=== PATIENT | female | born 1975 | race Caucasian/White ===

== ENCOUNTER → 2018-12-13 15:35 | Outpatient (CLI) | payer OTHER, SELFPAY ==
[2018-12-09 15:16] VITALS: BMI 26.9
[2018-12-13 16:13] LABS: Absolute Lymphocyte Count 1.92 X10^3/ul (0.83-4.51); Absolute Neutrophil Count 3.1 X10^3/uL (2.0-7.7); Basophil# 0.03 X10^3/uL; Basophil% 0.5 % (0-1); Eosinophil# 0.11 X10^3/uL; Eosinophils% 1.9 % (0-5); Hematocrit 40.6 % (37-47); Hemoglobin 13.4 g/dl (12.0-15.0); Lymphocyte # 1.92 X10^3/ul (4.0); Lymphocyte % 32.8 % (19-41); Mean Corpuscular Hgb 29.3 pg (27.0-32.0); Mean Corpuscular Volume 88.6 fL (81-99); Mean Platelet Vol. 9.2 fl (6.2-12.0); Monocyte# 0.69 X10^3/uL; Monocyte% 11.8 % (0-10); Neutrophil # 3.09 X10^3/uL (2.7-7.7); Neutrophil % 52.8 % (47-70); Platelet Count 293 K/mm3 (150-450); RBC Distribution Width CV 12.2 % (11.6-14.6); Red Blood Count 4.58 M/mm3 (4.2-5.4); White Blood Count 5.9 K/mm3 (4.4-11.0)
[2018-12-13 16:15] LABS: POSITIVE COUNT NO; POSITIVE DIFFERENTIAL NO; POSITIVE MORPHOLOGY NO
[2018-12-13 16:43] LABS: Follicle Stimulating Hormone 6.2 mIU/mL; Prolactin 8.5 ng/mL
== END ==
PROVIDERS: Referring Provider Obstetrics & Gynecology; Visit Provider Obstetrics & Gynecology
DX: N92.6 Irregular menstruation, unspecified (principal)
CPT/HCPCS: 36415; 82670; 83001; 84146; 85025

== ENCOUNTER → 2019-05-05 16:54 | Outpatient (CLI) | payer OTHER, SELFPAY ==
[2019-05-05 12:00] VITALS: BMI 26.9
[2019-05-08 08:10] LABS: HPV APTIMA, High Risk Negative (Negative)
== END ==
PROVIDERS: Referring Provider Obstetrics & Gynecology; Visit Provider Obstetrics & Gynecology
DX: Z12.4 Encounter for screening for malignant neoplasm of cervix (principal)
CPT/HCPCS: 87624; 88175; G0145

== ENCOUNTER 2019-05-06 05:27 | Day surgery (SDC) | payer OTHER, SELFPAY ==
[2019-05-05 12:00] VITALS: BMI 26.9
[2019-05-06] VITALS (7 sets, daily range): BP systolic 87–107; BP diastolic 55–78; PULSE 63–71; RESP 16–18; TEMP 36.3–37.1; O2SAT 97–100; BMI 26.6
--- NOTE | 2019-05-06 | POC_PTH ---
PATIENT: MICHAEL CHENG LOC: [facility] – [place] U#:[id number] AGE/SX: 44/F ROOM: RE05/06/[address]: Dr. Sandi Tovar MD : [id number] BED: DIS: 05/06/2019 SPEC #: [id number] RECD: 05/06/19 11:52 STATUS: KEVIN RENatalie #: [id number] NAN: 05/06/19 00:[address]: Sandi Tovar DEPT: SURGICAL PATHOLOGY RECD BY: Quinton Leblanc ENTERED: 05/06/19 11:52 SP TYPE: PROD CONC OTHR DR: No Primary Care Phys Tissues: Product of conception, NOS Procedures: Surgery Specimen Level IV HEADER OPERATION: Dilation and curettage, suction PRE-OP DIAGNOSIS: Missed TISSUE SUBMITTED: Products of conception MICROSCOPIC DIAGNOSIS Endometrium, curettage: Chorionic villi, decidualized stroma and trophoblastic cells consistent with products of conception. AM:mili 05/07/19 MICROSCOPIC DESCRIPTION Slides are reviewed. GROSS DESCRIPTION Received fresh is one container labeled with the patient's name and designated products of conception. The specimen consists of multiple irregular fragments of light to dark harrison soft tissue that in aggregate measure 6 x 5 x 0.7 cm. Dimension Mill Worker portions are submitted for cytogenetic studies. Dimension Mill Worker portions are submitted in two cassettes for permanent sections. / AM:mili 05/06/19 TC:5 CPT: 29689 ADDENDUM ADDENDUM ADDENDUM ADDENDUM ADDENDUM ADDENDUM ADDENDUM ADDENDUM ADDENDUM ADDENDUM ADDENDUM ADDENDUM ADDENDUM 05/19/2019 10:02 ADDENDUM 05/19/2019 10:02 ADDENDUM 05/19/2019 10:02 ADDENDUM 05/19/2019 10:02 ADDENDUM 05/19/2019 10:02 [facility] MICROARRAY CHROMOSOME ANALYSIS WITH PARENTAL SUPPORT RESULT: Abnormal male MICROARRAY RESULT: arr(13)x3 CLINICAL INTERPRETATION: Abnormal result. Trisomy 13 detected. Trisomy 13 is associated with a clinical diagnosis of Patau syndrome and is found in 1 in 10,000 live births. It presents with syndromic congenital abnormalities and severe intellectual disability. Trisomy 13 is more likely to be lethal during the period and is commonly observed in miscarriages. Genetic counseling is recommended to discuss the significance of this result. Referral to a local genetic counselor may be considered. Please see complete above mentioned report in EMR
[2019-05-06] MEDS: Doxycycline 100 MG CAPSULE PO (06:14)
[2019-05-06 06:25] LABS: Hematocrit 41.8 % (37-47); Hemoglobin 14.3 g/dL (12.0-15.0); Mean Corp Hgb Conc 34.2 g/dL (32-36); Mean Corpuscular Hgb 30.3 pg (27.0-32.0); Mean Corpuscular Volume 88.6 fL (81-99); Mean Platelet Vol. 9.3 fl (6.2-12.0); Platelet Count 279 K/mm3 (150-450); RBC Distribution Width CV 12.5 % (11.6-14.6); RBC Distribution Width SD 40.1 fl (35.1-43.9); Red Blood Count 4.72 M/mm3 (4.2-5.4)
--- NOTE | 2019-05-06 06:51 | HP.PCM_ITS ---
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: No Is patient in pain?: No Allergies adhesive Allergy (Verified 05/05/19 14:27) Rash latex Allergy (Verified 05/05/19 14:27) Rash Last Menstral Period: 03/01/19 Zika: Zika virus screening: Negative : No PFSH PFSH Medical History Anemia (Acute) Anxiety with depression (Acute) Basal cell carcinoma of skin (Acute) Surgical History (Updated 12/09/18 @ 15:17 by Brynn Luna) History of oral surgery (Acute) History of tonsillectomy (Acute) Family History Mother Hyperlipidemia Father Diabetes Hyperlipidemia Hypertension Social History (Updated 05/05/19 @ 15:03 by Sandi Tovar MD) Smoking Status: Never smoker alcohol intake: never substance use type: does not use caffeine: No what type of physical activity do you participate in: walking seatbelt use: always do you feel safe at home: Yes additional social history: Michael- Kathryn 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 Date Name GA/Weeks Outcome Route Bth Weight Infant Gen Labor Lgth Anesthesia Del Locatn Provider FOB Unknown 2016 July live - full term Female [facility] Pauly HPI NOB LMP 03/01, pt req for date: Details: BRYNN CHENG is a 44 year old who presents for New OB visit. she denies any vb cramping. bedside ultrasound today shows 12 mm crl with no FHT seen. crl measuring 7w4d and GS 7w2d. has had positive test for almost 5 weeks. OB Visit Menstrual History Last Menstral Period: 03/01/19 Medical History Medical History: Positive: Diabetes (h/o GDM) ACOG First Trimester First Trimester: Discussed Assessment & Plan Problems 1. Missed O02.1 Plan discussed options plan suction d and c. discussed surgical risks including risks of anesthesia, infection, bleeding, injury to bowel, bladder or blood vessels, and patient wishes to proceed with surgery. Orders Orders: Hepatitis B Surface Antibody Today Z34.90 Hepatitis B Surface Antigen Today Z34.90 Antibody Screen Today Z34.90 Type & Screen Today Z34.90 HIV - [facility] Today Z34.90 Rubella IgG Today Z34.90 CBC W/Diff, Automated Today Z34.90 Culture, Urine Today Z34.90 CT/NG [facility] BY PCR Today Z34.90 Rapid Plasmin Reagin (RPR) Today Z34.90 Coding Level of Care Code OB Routine Diagnoses Missed O02.1 UPDATE- I have seen the patient and performed any clinically relevant updates to the history and physical exam. Sandi Tovar MD
--- NOTE | 2019-05-06 06:53 | DCINST_ITS ---
Discharge Diet: No Restrictions Discharge Activity: Return to Normal Activity, May Shower, May Take a Tub Bath Allergies/Adverse Reactions: Allergies adhesive Allergy (Verified 05/06/19 05:51) Rash latex Allergy (Verified 05/06/19 05:51) Rash Medications to take at Discharge Vits [Prenatabs FA] 1 tablet PO DAILY 02/25/17 Primary Care Physician: Care Physician,No Primary [Primary Care Provider] - Test Results: Test results from this visit will be discussed in further detail at your follow- up appointment, if applicable. Please Follow Up With: Sandi Tovar MD - [phone]
--- NOTE | 2019-05-06 06:53 | PCM.OPRPT ---
Problem List (1) Missed Status: Acute Report of Operation Date of Procedure: 05/06/19 Pre-Operative Diagnosis: Missed Post-Operative Diagnosis: same Surgery/Procedure Performed:: Suction D&C Description of Surgical Findings:: 8 week missed ab Type of Anesthesia:: Local MAC Special Medications: none Specimen's removed: products of conception Drains: none Estimated Blood Loss (mL): 50 Fluids Replaced: Crystalloid Description of Procedure: Patient was taken to the operating room and placed under MAC local anesthesia. She was prepped and draped in the normal sterile fashion the dorsal lithotomy position. Bladder was drained of clear urine and anterior lip of the cervix was grasped and the uterus sounded to 8 to 9 cm. Cervix was progressively dilated to allow passage of a 8 and then a 9 suction curette. Progressive passes were made removing the retained products of conception without complication. Sharp curettage confirmed complete removal of the retained products. All instruments were removed from the vagina and excellent hemostasis was noted and the patient was taken to recovery in stable condition. Grafts/Implants Used: none - Complications none Multi Select Codes - Urinary/Genital Urinary/Genital CPT Codes: 34029 Care of miscarriage
[2019-05-12 09:48] LABS: Pathology Specimen OB SEE PATHOLOGY REPORT
== END 2019-05-06 08:28 | disposition home or self-care (01) ==
LOC: SDC 05:28 → AC 05:28
PROVIDERS: Referring Provider Obstetrics & Gynecology; Visit Provider Obstetrics & Gynecology
PROC: (CPT 59820; principal; 2019-05-06 06:30)
DX: O02.1 Missed abortion (principal); D64.9 Anemia, unspecified; F32.9 Major depressive disorder, single episode, unspecified; F41.9 Anxiety disorder, unspecified; Z85.828 Personal history of other malignant neoplasm of skin; E11.9 Type 2 diabetes mellitus without complications
CPT/HCPCS: 01965; 59820; 85027; 86850; 86900; 88305; J7120; J2405

== ENCOUNTER → 2019-08-01 15:30 | Outpatient (CLI) | payer OTHER, SELFPAY ==
[2019-05-23 15:48] VITALS: BMI 26.6
[2019-08-01 17:10] LABS: hCG Titer Quant., Serum 199 mIU/mL (1-3)
== END ==
PROVIDERS: Referring Provider Obstetrics & Gynecology; Visit Provider Obstetrics & Gynecology
DX: N91.2 Amenorrhea, unspecified (principal)
CPT/HCPCS: 36415; 84702

== ENCOUNTER → 2019-08-03 17:36 | Outpatient (CLI) | payer OTHER, SELFPAY ==
[2019-05-23 15:48] VITALS: BMI 26.6
[2019-08-03 18:40] LABS: hCG Titer Quant., Serum 579 mIU/mL (1-3)
== END ==
PROVIDERS: Visit Provider Obstetrics & Gynecology
DX: N91.2 Amenorrhea, unspecified (principal)
CPT/HCPCS: 36415; 84702

== ENCOUNTER → 2019-09-01 15:55 | Outpatient (CLI) | payer OTHER, SELFPAY ==
[2019-09-01 11:18] VITALS: BMI 26.6
[2019-09-01 19:52] LABS: Chlamydia Trachomatis by PCR Negative (Negative); Neisserai gonorrhoeae by PCR Negative (Negative); Probe Check PASS; Sample Adequacy Control PASS; Specimen Processing Control PASS
== END ==
PROVIDERS: Referring Provider Obstetrics & Gynecology; Visit Provider Obstetrics & Gynecology
DX: Z34.90 Encounter for supervision of normal pregnancy, unspecified, unspecified trimester (principal)
CPT/HCPCS: 87086; 87491; 87591

== ENCOUNTER → 2019-09-16 17:00 | Outpatient (CLI) | payer OTHER, SELFPAY ==
[2019-09-16 16:09] VITALS: BMI 26.6
[2019-09-16 17:53] LABS: Glucose 158 mg/dL (74-106)
== END ==
PROVIDERS: Referring Provider Obstetrics & Gynecology; Visit Provider Obstetrics & Gynecology
DX: Z34.81 Encounter for supervision of other normal pregnancy, first trimester (principal); Z86.32 Personal history of gestational diabetes
CPT/HCPCS: 36415; 82947

== ENCOUNTER → 2019-10-14 16:45 | Outpatient (CLI) | payer OTHER, SELFPAY ==
[2019-10-14 16:07] VITALS: BMI 26.6
[2019-10-14 17:25] LABS: Absolute Lymphocyte Count 1.82 X10^3/uL (0.83-4.51); Absolute Neutrophil Count 6.8 X10^3/uL (2.0-7.7); Basophil# 0.03 X10^3/uL; Basophil% 0.3 % (0-1); Eosinophil# 0.06 X10^3/uL; Eosinophils% 0.6 % (0-5); Hemoglobin 11.7 g/dL (12.0-15.0); Lymphocyte # 1.82 X10^3/ul (4.0); Lymphocyte % 19.4 % (19-41); Mean Corp Hgb Conc 33.4 g/dL (32-36); Mean Corpuscular Hgb 29.3 pg (27.0-32.0); Mean Corpuscular Volume 87.7 fL (81-99); Mean Platelet Vol. 9.6 fl (6.2-12.0); Monocyte# 0.61 X10^3/uL; Monocyte% 6.5 % (0-10); NRBC Flagged by Analyzer 0 % (0-5); Neutrophil % 72.8 % (47-70); Platelet Count 275 K/mm3 (150-450); RBC Distribution Width CV 12.9 % (11.6-14.6); RBC Distribution Width SD 41.3 fl (35.1-43.9); Red Blood Count 3.99 M/mm3 (4.2-5.4); White Blood Count 9.4 K/mm3 (4.4-11.0)
[2019-10-14 18:51] LABS: HIV - WCH Non-Reactive (Nonreactive); Rubella IgG 34.1 IU/mL
[2019-10-16 02:56] LABS: Rapid Plasmin Reagin (RPR) NONREACTIVE (NONREACTIVE)
== END ==
PROVIDERS: Referring Provider Obstetrics & Gynecology; Visit Provider Obstetrics & Gynecology
DX: Z34.90 Encounter for supervision of normal pregnancy, unspecified, unspecified trimester (principal)
CPT/HCPCS: 36415; 85025; 86592; 86703; 86762; 86850

== ENCOUNTER → 2020-02-05 16:22 | Outpatient (CLI) | payer OTHER, SELFPAY ==
[2020-02-05 15:44] VITALS: BMI 26.6
[2020-02-06 07:06] LABS: Hepatitis B Surface Antigen Non-Reactive (Nonreactive)
== END ==
PROVIDERS: Referring Provider Obstetrics & Gynecology; Visit Provider Obstetrics & Gynecology
DX: Z34.90 Encounter for supervision of normal pregnancy, unspecified, unspecified trimester (principal)
CPT/HCPCS: 36415; 87340

== ENCOUNTER → 2020-03-12 10:32 | Outpatient (CLI) | payer OTHER, SELFPAY ==
[2020-03-12 09:41] VITALS: BMI 26.6
--- NOTE | 2020-03-12 10:33 | US_ITS ---
STUDY: OBSTETRICAL ULTRASOUND - BIOPHYSICAL PROFILE REASON FOR EXAM: Female, 45 years old NON-REACTIVE NST-AMA LMP: July 01, 2019. PRIOR ULTRASOUND: None. TECHNIQUE: Transabdominal TECHNICAL QUALITY: Adequate. FINDINGS: There is a single intrauterine fetus. The fetus is in a cephalic presentation. There is demonstrated cardiac activity with a heart rate of 132 bpm. There is a normal amniotic fluid volume. The largest amniotic fluid pocket measures 5.9 cm. The amniotic fluid index (ROSANNA) is 15.5 cm. The placenta is fundal and posterior There are Grade 2 placental changes. Age by LMP: 36 weeks, 3 days. KATHY by LMP: April 01, 2020. Gender: Female BIOPHYSICAL PROFILE: Breathing Movements (FBM): 2 Gross Body Movements (GBM): 2 Tone (FT): 2 Amniotic Fluid Volume (AFV): 2 TOTAL SCORE: 8 / 8 US/Biophysical Profile IMPRESSION: Normal biophysical profile of 8/8. Electronically Signed: Arya Bhatti, at 12:26 EDT , Service support ,
--- OUTSIDE RECORDS SUMMARY | 2020-07-18 12:30 | XMS RPT_ITS | CCD ---
:1975 External Reference #:[id number] Author Organization [facility] Care Team Providers Name Role Phone Unavailable Unavailable Unavailable Results Result Name Value Range Unit Interpretation Flag Date Location progress note on 19-01-28 [employer] Met with patient. Normal 01-27-20 [facility] Here for f/u on renal dilation of fetus, fibroid [facility] ([id number]) Interface Message Text Medical, surgical and family hx reviewed AMA- pt reports low risk cfDNA States had genetic testing in past as ere was a question of infertility- she and her were carriers for different disorder (husb and was a form of dwarfism, she is uncertain of hers but knows it was a comm on carrier screen result). 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 Consent to share information with FTC team, OB and pediatric regulo signed. Pt plans to deliver at [place] with Dr Tovar. Monument Stonecutter is Dr Catalan ([facility] pediatrics). female fetus- name is not yet decided Method of feeding: breast Ultrasound findings today: See report in procedures for deta ils. Reinforced continued OB care with Dr Tovar Pt has not had baseline mamm ogram. Reinforced monthly breast exams regardless of [employer] The total patient time of e visit was 30 minutes, of which greater than 50% of Normal 01-27-2020 [facility] the time was spent counseling and coordinating care. Hospital ([id number]) Interface Message Text progress note on 18-01-22 [employer] Dating for Normal 01-21-2020 [facility] Interface upcoming consult Hospital ([id number]) Message Text progress on 2019-11 PROGRESS HNO ID: [id number] Normal 11-04-2019 [facility] Author: Navya driver ([id number]) Service: ? Author Type: Nurse Practitioner Type: Progress Notes Filed: 11/04/2019 3:11 PM Note Text: Subjective HPI HPI Michael Hull is a 44 year old female who presents today for CC of sore throat. This started 4-5 days ago. She is also havin g chest congestion, cough, bodyaches an headache. She denies any fev er. She is 18 weeks . She denies any bleeding or LOF. BP 102/64 Pulse 72 Temp 36.6 ?C (97.8 ?F) (Tympanic) R prince 16 Wt 74.8 kg (165 lb) SpO2 99% BMI 28.32 kg/m? Social History Tobacco Use - Smoking status: Never Smoker - Smokeless tobacco: Never Used Substance Use Topics - Alcohol use: No - Drug use: No PAST MEDICAL HISTORY Diagnosis Date - Anemia - depression and anxiety - Gestational diabetes mellitus, class A1 01/03/2017 - [facility] - PAST MEDICAL HISTORY OF BASAL CELL CARCINOMA I have confirmed and edited as necessary, the [facility] Review of Systems Constitutional: Negative for chills and fever. HENT: Positive for congestion, sinus pain and sore throat. N egative for ear pain. Respiratory: Positive for cough. Negative for sputum product ion, shortness of breath and wheezing. Musculoskeletal: Positive for myalgias. Negative for joint p ain. Neurological: Positive for headaches. Objective Physical Exam Constitutional: She is well-developed, well-nourished, and i n no distress. HENT: Head: Normocephalic and atraumatic. Right Ear: Tympanic membrane, external ear and ear canal nor mal. Left Ear: Tympanic membrane and ear canal normal. Mouth/Throat: Uvula is midline, oropharynx is clear and mois t and mucous membranes are normal. Cardiovascular: Normal rate, regular rhythm and normal heart sounds. Pulmonary/Chest: Effort normal and breath sounds normal. Lymphadenopathy: Head (right side): No submental, no submandibular and no ton sillar adenopathy present. Head (left side): No submental, no submandibular and no tons illar adenopathy present. She has no cervical adenopathy. Neurological: She is alert. Skin: Skin is warm and dry. Psychiatric: Affect normal. Nursing note and vitals reviewed. ASSESSMENT/PLAN: 1. URI with cough and congestion - ICD9: 465.9, ICD10: J06.9 (primary diagnosis) - Discussed viral etiology and rationale for treatment. Rest, increase water intake Motrin or Tylenol as needed for fever or pain. Salt water gargles, chloraseptic spray or lozenges as needed for sore throat. Warm beverages, honey. Nasal saline spray as needed Cool mist humidifier at night A cold normally lasts 7-10 days. If your symptoms are lastin g longer, develop fever, or worsening by that time instead of improvin g then return to clinic or follow up with PCP for re-evaluation. 2. Sore throat - ICD9: 462, ICD10: J02.9 - suspect viral - Rapid Strep negative in the office today - overnight throat culture pending - Discussed supportive care treatment with fluids, rest and analgesia. - The patient may also use warm salt water gargles, throat l ozenges and/or OTC throat spray as needed. - The patient should follow up in one week if symptoms persi st or worsen - Call back if drooling, increased temperature, symptoms of dehydration and/or still sick in one week - GROUP A STREPTOCOCCUS BY PCR - RAPID STREP TEST B/O * Seek medical care immediately, call 911, go to ER if you h ave chest pain, difficulty breathing, shortness of breath, inability t o swallow. Diagnosis and treatment plan were discussed and questions we re answered to the patient's satisfaction. Pt acknowledged understanding of concepts and follow up plan. Specific signs and symptoms that would indicate the need for higher level of care were discussed in detail warranting prompt ER evalua tion. Navya Rizzo, TRAUMA DIRECTOR.WHEEL INSTALLER group a strep by pcr on 2019-11-04 GAS Specimen Source Throat Swab Normal 11-04-19 [facility] ([id number]) Comment: Performed By: #### GASPCR ## ## [facility] [address] [place], [place] [address] Group A Strep PCR Negative for Group A Normal 0 11-04-2019 [facility] Streptococcus by PCR. [place] ([id number]) Comment: Result Comment: This test wa s developed and its performance characteristics determined by [facility]'s [facility] [place] ([facility]). It has not been cleared or a pproved by the FDA. [facility] is regulated under CLIA as qualified to perform high complexity testing. This test is used for clinical purposes. It should not be regarded as inv estigational or for research . Performed By: #### GASPCR ## ## [facility] [address] [place], [place] [address] cnov on 2019-11-04 CNOV Office Visit (UCWSTR) Normal 11-04-19 [place] MICHAEL HULL ([id number]) 1975 [facility] Time Provider Department ([id number]) 11/04/19 2:15 PM NAVYA RIZZO [facility] During your visit today, we recorded the following informati on about you: Temperature Pulse Respiration Blood pressure 97.8 degrees 72/minute 16/minute 102/64 Weight 74.8 kg Navya Rizzo APRN.WHEEL INSTALLER 11/04/2019 3:11 PM Signed Subjective HPI HPI Michaelmalou Hull is a 44 year old female who present s today for CC of sore throat. This started 4-5 days ago. She is also mcpherson ving chest congestion, cough, bodyaches an headache. She denies any fev er. She is 18 weeks . She denies any bleeding or LOF. BP 102/64 Pulse 72 Temp 36.6 ?C (97.8 ?F) (Tympanic) R prince 16 Wt 74.8 kg (165 lb) SpO2 99% BMI 28.32 kg/m? Social History Tobacco Use - Smoking status: Never Smoker - Smokeless tobacco: Never Used Substance Use Topics - Alcohol use: No - Drug use: No PAST MEDICAL HISTORY Diagnosis Date - Anemia - depression and anxiety - Gestational diabetes mellitus, class A1 01/03/2017 - [facility] - PAST MEDICAL HISTORY OF BASAL CELL CARCINOMA I have confirmed and edited as necessary, the [facility] Review of Systems Constitutional: Negative for chills and fever. HENT: Positive for congestion, sinus pain and sore throat. Negative for ear pain. Respiratory: Positive for cough. Negative for sp utum production, shortness of breath and wheezing. Musculoskeletal: Positive for myalgias. Negative for joint p ain. Neurological: Positive for headaches. Objective Physical Exam Constitutional: She is well-developed, well-nourished, and i n no distress. HENT: Head: Normocephalic and atraumatic. Right Ear: Tympanic membrane, external ear and ear canal nor mal. Left Ear: Tympanic membrane and ear canal normal. Mouth/Throat: Uvula is midline, oropharynx is clear and mois t and mucous membranes are normal. Cardiovascular: Normal rate, regular rhythm and normal heart sounds. Pulmonary/Chest: Effort normal and breath sounds normal. Lymphadenopathy: Head (right side): No submental, no submandibular and no ton sillar adenopathy present. Head (left side): No submental, no submandibular and no tons illar adenopathy present. She has no cervical adenopathy. Neurological: She is alert. Skin: Skin is warm and dry. Psychiatric: Affect normal. Nursing note and vitals reviewed. ASSESSMENT/PLAN: 1. URI with cough and conges tion - ICD9: 465.9, ICD10: J06.9 (primary diagnosis) - Discussed viral etiology and rationale for treatment. Rest, increase water intake Motrin or Tylenol as needed for fever or pain. Salt water gargles, chloraseptic spray or lozeng es as needed for sore throat. Warm beverages, honey. Nasal saline spray as needed Cool mist humidifier at night A cold normally lasts 7-10 days. If your symptom s are lasting longer, develop fever, or worsening by that time instead of improving then return to clinic or follow up with PCP for re-evaluation. 2. Sore throat - ICD9: 462, ICD10: J02.9 - suspect viral - Rapid Strep negative in the office today - overnight throat culture pending - Discussed supportive care treatment with fluids, rest and analgesia. - The patient may also use warm salt richard er gargles, throat lozenges and/or OTC throat spray as needed. - The patient should follow up in one week if symptoms persi st or worsen - Call back if drooling, increased tempe rature, symptoms of dehydration and/or still sick in one week - GROUP A STREPTOCOCCUS BY PCR - RAPID STREP TEST B/O * Seek medical care immediately, call 911, go to ER if you have chest pain, difficulty breathing, shortness of breath, inability to swal low. Diagnosis and treatment plan were discus sed and questions were answered to the patient's satisfaction. Pt a cknowledged understanding of concepts and follow up plan. Specific signs and symptoms that would indicate the ut ed for higher level of care were discussed in detail warranting prompt ER evaluatio n. Navya Rizzo APRN.ELTON Rizzo APRN.ELTON 11/04/2019 2:43 PM Signed ASSESSMENT/PLAN: 1. URI with cough and conges tion - ICD9: 465.9, ICD10: J06.9 (primary diagnosis) - Discussed viral etiology and rationale for treatment. Rest, increase water intake Motrin or Tylenol as needed for fever or pain. Salt water gargles, chloraseptic spray or lozeng es as needed for sore throat. Warm beverages, honey. Nasal saline spray as needed Cool mist humidifier at night A cold normally lasts 7-10 days. If your symptom s are lasting longer, develop fever, or worsening by that time instead of improving then return to clinic or follow up with PCP for re-evaluation. 2. Sore throat - ICD9: 462, ICD10: J02.9 - suspect viral - Rapid Strep negative in the office today - overnight throat culture pending - Discussed supportive care treatment with fluids, rest and analgesia. - The patient may also use warm salt richard er gargles, throat lozenges and/or OTC throat spray as needed. - The patient should follow up in one week if symptoms persi st or worsen - Call back if drooling, increased tempe rature, symptoms of dehydration and/or still sick in one week - GROUP A STREPTOCOCCUS BY PCR - RAPID STREP TEST B/O * Seek medical care immediately, call 911, go to ER if you have chest pain, difficulty breathing, shortness of breath, inability to swal low. Referring Provider: SELF [[id number]] Allergies As of Date: 11/04/2019 Noted Allergy Reaction ADHESIVE TAPE (ROSINS) 03/18/2008 2 - Rash BACITRACIN 03/18/2008 2 - Rash Date Reviewed: 11/04/2019 Reviewed by: Nancy Duenas Ma - Fully Assessed Reason for Visit: Chest Congestion [236] Cmt: cough, bodyaches, sore throat an d headache x 6 days-18 weeks Primary Visit Diagnosis:URI with cough and congestion [J06.9 ] Other Visit Diagnosis:Sore throat [J02.9] Order(s):GROUP A STREPTOCOCCUS BY PCR [SQGASPCR] Order #: [id number] RAPID STREP TEST B/O [[id number]] Order #: [id number] Prescriptions as of 11/04/2019 Sig: LANCETS 1 Each four times daily. Use * URINE GLUCOSE-KETONES TEST ST* 1 Strip four times daily. LANCETS Check glucose fasting in morn* VITAMIN,CALCIUM,MINE* Take 1 tablet by mouth. ETONOGESTREL 0.12 MG-ETHINYL * Use 1 Each vaginally as direc * Patient not taking: Reported on 11/04/2019 BLOOD-GLUCOSE METER 1 Each as directed. Patient not taking: Reported on 11/04/2019 BLOOD SUGAR DIAGNOSTIC STRIPS 1 Strip four times daily. Use* Patient not taking: Reported on 11/04/2019 BLOOD-GLUCOSE METER KIT 1 Each as needed. USE DIRE* Patient not taking: Reported on 11/04/2019 BLOOD SUGAR DIAGNOSTIC STRIPS Check glucose fasting in morn* Patient not taking: Reported on 11/04/2019 ALCOHOL SWABS Apply 1 application to affect* Patient not taking: Reported on 11/04/2019 BREAST PUMP As directed Patient not taking: Reported on 11/04/2019 ETONOGESTREL 0.12 MG-ETHINYL * Insert vaginally and leave in * Patient not taking: Reported on 11/04/2019 IBUPROFEN 200 MG TABLET Take 1-2 tablets by mouth yumiko* Patient not taking: Reported on 11/04/2019 Problem List As Of Date 11/04/2019 Noted Resolved Spotting in [O26.859] 07/20/2016 01/15/2017 More... History of depression [Z86.59] 07/20/2016 More... Advanced maternal age, 1st [O09.519] 07/20/2016 More... Abnormal O'Griffith glucose challenge test, ant*12/15/2016 0 01/15/2017 More... Gestational diabetes mellitus, class A1 [O24.41*01/03/2017 0 04/10/2017 History of gestational diabetes mellitus, not p*04/10/2017 Other instructions from your clinician: ASSESSMENT/PLAN: 1. URI with cough and congestion - ICD9: 465.9, ICD10: J06.9 (primary diagnosis) - Discussed viral etiology and rationale for treatment. Rest, increase water intake Motrin or Tylenol as needed for fever or pain. Salt water gargles, chloraseptic spray or lozenges as needed for sore throat. Warm beverages, honey. Nasal saline spray as needed Cool mist humidifier at night A cold normally lasts 7-10 days. If your symptoms are lastin g longer, develop fever, or worsening by that time instead of improvin g then return to clinic or follow up with PCP for re-evaluation. 2. Sore throat - ICD9: 462, ICD10: J02.9 - suspect viral - Rapid Strep negative in the office today - overnight throat culture pending - Discussed supportive care treatment with fluids, rest and analgesia. - The patient may also use warm salt water gargles, throat l ozenges and/or OTC throat spray as needed. - The patient should follow up in one week if symptoms persi st or worsen - Call back if drooling, increased temperature, symptoms of dehydration and/or still sick in one week - GROUP A STREPTOCOCCUS BY PCR - RAPID STREP TEST B/O * Seek medical care immediately, call 911, go to ER if you h ave chest pain, difficulty breathing, shortness of breath, inability t o swallow. Encounter Status:Closed by NAVYA RIZZO CNP on 11/04/19 Summary Purpose Family History No Family History Records FoundNo Family History Records Found Advance Directives No Advanced Directives Records FoundNo Advanced Directives Records Found Additional Source Comments FOR RECORDS PERTAINING TO PATIENTS WHO ARE OR HAVE BEEN ENROLLED IN A CHEMICAL DEPENDENCY/SUBSTANCE ABUSE PROGRAM, SOME INFORMATION MAY BE OMITTED. This clinical summary was aggregated from multiple sources. Caution should be exercised in using it in the provision of clinical care. This summary normalizes information from multiple sources, and as a consequence, information in this document may materially changethe coding, format and clinical context of patient data. In addition, data may be omittedin some cases. CLINICAL DECISIONS SHOULD BE BASED ON THE PRIMARY CLINICAL RECORDS. [facility] provides no warranty or guarantee of the accuracy or completeness of information in this document. UNRECOGNIZED CONTENT PROVIDED BELOW FOR UNRECOGNIZED SECTION INFORMATION SOURCE DATE CREATED AUTHOR AUTHOR'S ORGANIZATIO N 11/05/2019 [facility] DATE CREATED AUTHOR AUTHOR'S ORGANIZATIO N 03/23/2020 [facility]
== END ==
PROVIDERS: Referring Provider Obstetrics & Gynecology; Visit Provider Obstetrics & Gynecology
DX: O09.90 Supervision of high risk pregnancy, unspecified, unspecified trimester (principal); O28.8 Other abnormal findings on antenatal screening of mother; Z3A.00 Weeks of gestation of pregnancy not specified
CPT/HCPCS: 76818; 87081

== ENCOUNTER → 2020-03-25 16:26 | Outpatient (CLI) | payer OTHER, SELFPAY ==
[2020-03-25 15:26] VITALS: BMI 32.1
--- NOTE | 2020-03-25 16:27 | US_ITS ---
STUDY: OBSTETRICAL ULTRASOUND - BIOPHYSICAL PROFILE REASON FOR EXAM: Female, 45 years old WELL BEING LMP: PRIOR ULTRASOUND: None. TECHNIQUE: Transabdominal TECHNICAL QUALITY: Adequate. FINDINGS: There is a single intrauterine fetus. The fetus is in a cephalic presentation. There is demonstrated cardiac activity with a heart rate of 130 bpm. There is a normal amniotic fluid volume. The largest amniotic fluid pocket measures 4.4 cm. The amniotic fluid index (ROSANNA) is 13.1 cm. The placenta is fundal in location. There are Grade 2 placental changes. Age by LMP: 38 weeks, 2 days. KATHY by LMP: 04/06/2020. BIOPHYSICAL PROFILE: Breathing Movements (FBM): 2 Gross Body Movements (GBM): 2 Tone (FT): 2 Amniotic Fluid Volume (AFV): 2 TOTAL SCORE: 8 / 8 US/Biophysical Profile IMPRESSION: Normal biophysical profile of 05/08. Electronically Signed: Russ Clancy MD at 21:12 EDT Tel , Service support ,
== END ==
PROVIDERS: Referring Provider Obstetrics & Gynecology; Visit Provider Obstetrics & Gynecology
DX: O36.8390 Maternal care for abnormalities of the fetal heart rate or rhythm, unspecified trimester, not applicable or unspecified (principal); Z3A.00 Weeks of gestation of pregnancy not specified
CPT/HCPCS: 76818

== ENCOUNTER → 2020-04-06 11:56 | Outpatient (CLI) | payer OTHER, SELFPAY ==
[2020-04-05 08:26] VITALS: BMI 32.1
== END ==
PROVIDERS: Referring Provider Obstetrics & Gynecology; Visit Provider Obstetrics & Gynecology
DX: Z11.59 Encounter for screening for other viral diseases (principal)
CPT/HCPCS: 87635; G2023; U0003

== ENCOUNTER 2020-04-08 07:00 | Inpatient (IN) | payer OTHER, SELFPAY ==
[2020-04-05 08:26] VITALS: BMI 32.1
[2020-04-08] VITALS (16 sets, daily range): BP systolic 97–119; BP diastolic 54–79; PULSE 54–75; RESP 16–18; TEMP 36.7–37.4; O2SAT 97–98; BMI 31.5
[2020-04-08] MEDS: Lactated Ringers 1,000 ML 50 ML IV (07:35)
[2020-04-08] MEDS: Oxytocin 30 units/NS 500 ml 30 UNITS/500 ML IV.SOLN IV (08:05)
[2020-04-08 08:15] LABS: Absolute Lymphocyte Count 1.27 X10^3/uL (0.83-4.51); Absolute Neutrophil Count 7.1 X10^3/uL (2.0-7.7); Basophil# 0.01 X10^3/uL; Basophil% 0.1 % (0-1); Eosinophil# 0.05 X10^3/uL; Eosinophils% 0.5 % (0-5); Hematocrit 37.5 % (37-47); Hemoglobin 12.3 g/dL (12.0-15.0); Lymphocyte # 1.27 X10^3/ul (4.0); Lymphocyte % 13.7 % (19-41); Mean Corp Hgb Conc 32.8 g/dL (32-36); Mean Corpuscular Hgb 29.6 pg (27.0-32.0); Mean Corpuscular Volume 90.4 fL (81-99); Mean Platelet Vol. 10.2 fl (6.2-12.0); Monocyte# 0.76 X10^3/uL; Monocyte% 8.2 % (0-10); NRBC Flagged by Analyzer 0 % (0-5); Neutrophil # 7.12 X10^3/uL (2.7-7.7); Platelet Count 247 K/mm3 (150-450); RBC Distribution Width CV 13.1 % (11.6-14.6); RBC Distribution Width SD 42.8 fl (35.1-43.9); Red Blood Count 4.15 M/mm3 (4.2-5.4); White Blood Count 9.3 K/mm3 (4.4-11.0)
--- NOTE | 2020-04-08 09:38 | PCM.HPOB.BLA ---
- Problem List (1) Encounter for induction of labor Status: Acute (2) AMA (advanced maternal age) multigravida 35+ Status: Acute Qualifiers: Comment: scheduled IOL 40 weeks. genetic counseling. growth scans q4wks, wkly NST starting at 32 weeks. Growth US 03/18 showed adequate growth (3) Abnormal glucose affecting Status: Acute Comment: declined 3gtt Home testing- normal Fastin-83 2hrPP 87-90; 90-95; 93-105 (4) Fibroids Status: Acute Comment: posterior cervical fibroid (5) Status: Acute Qualifiers: Comment: carrier, nipt-low risk, and ntd screening reviewed. anatomy reviewed. (6) Pyelectasis of fetus on ultrasound Status: Acute Comment: from 7mm to 12mm now, see 03/22 US note for plan for peds after delivery. urology consult, fu (7) Supervision of high-risk Status: Acute Qualifiers: Comment: PRR KATHY 04/06/20 girl nicky BONNY July Michael (8) Anxiety Status: Chronic Comment: no meds, counseling encouraged History and Physical Date of Admission: 04/08/20 Intake Vital Signs 04/05/20 Height 5 ft 4 in 04/05/20 Weight: 184 lb 04/05/20 BMI 31.6 04/05/20 BP 124/72 H Intake Visit Reasons: 39 WK OB/NST Repatcher Required: No Is patient in pain?: No Allergies adhesive Allergy (Verified 04/05/20 08:20) Rash latex Allergy (Verified 04/05/20 08:20) Rash Medications Vits [Prenatabs FA] 1 tab PO DAILY 02/25/17 [History Confirmed 04/05/20] famotidine 20 mg tablet 20 mg PO DAILY #30 tab 10/14/19 [Rx Confirmed 04/05/20] Last Menstral Period: 07/01/19 Zika: Zika virus screening: Negative : No PFSH PFSH Medical History Anemia (Acute) Anxiety with depression (Acute) Basal cell carcinoma of skin (Acute) Surgical History H/O dilation and curettage (Acute) History of oral surgery (Acute) History of tonsillectomy (Acute) Family History Mother Hyperlipidemia Father Diabetes Hyperlipidemia Hypertension Social History (Updated 04/06/20 @ 05:[address] 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 Date Name GA/Weeks Outcome Route Bth Weight Gen Labor Lgth Anesthesia Del Locatn Provider FOB Unknown 2016 July live - full term Female [facility] [place] HPI 39 WK OB/NST: Details: 45-year-old G3, P1 at 40 weeks 3 days presents for induction labor secondary to AMA OB Visit KATHY Calculator Estimated Delivery Date Method Current WG Current Estimate 04/06/20 LMP (Certain) 40w 0d Expected Delivery Route/Plan Labor Preferences- labor support person: Michael pain management options preferred: [] cut cord/dad catch: [] : yes PP control planned: [] discussed possible routes of delivery and associated risks: [] special requests: [] Specific Issue/Plans flu vaccine: declines tdap vaccine: declines rhogam: na LARC form signed: yes movement and labor precautions reviewed. Problem list reviewed and updated with the most current plan of care details and appropriate orders placed. Relevant counseling for the gestational age provided. Continue routine care and follow up unless otherwise noted in visit notes/problem list details Initial Weight: Not Recorded Date EGA Weight BP Urine Prot Glucose FHR FuHt Pres Dilation Effaced St Visit Note 09/01/19 8w 6d 155 lb 4 oz 130/70 170 09/16/19 11w 0d 157 lb 120/68 160 no vb 10/14/19 15w 0d 164 lb 114/66 Negative Negative 150 SM- no vb cramping some nausea 11/11/19 19w 0d 164 lb 130/86 Negative Negative 158 MH-No VB, LOF. Nausea gone. MFM US last week-need report. states told by MFM fluid in kidney and repeat 4 weeks Will clarify and call pt 12/11/19 23w 2d 122/70 150 SM- reviewed anatomy us and fu, plan repeat us in 02/05/20 31w 2d 186 lb 124/74 Negative Negative 145 31 SM- no vb lof good fm no regular ctx 02/20/20 33w 3d Negative Negative 150 SM- no vb lof good fm n oregular 02/27/20 34w 3d 186 lb 112/70 Negative Negative 140 03/04/20 35w 2d 185 lb 118/78 Negative Negative 143 MH-No VB, LOF. Good FM. Reactive NST. Growth US with MFM scheduled 03/12/20 36w 3d 185 lb 4 oz 120/78 Negative Negative 140 36 SM- BPP done for NRNST 05/08 reassuring. discussed IOL by 40 weeks SM- BPP done for NRNST 05/08 reassuring. discussed IOL by 40 weeks. growth us sched for 03/18/20 37w 2d 187 lb 100/70 Negative Negative 140 Cephalic 1.5 SM- no vb lof good fm no regular ctx 03/25/20 38w 2d 187 lb 112/82 Negative Negative 140 SM- no vb lof good fm no regular ctx bpp due to variable decel 04/01/20 39w 2d 184 lb 8 oz 126/80 Negative Negative 140 1.5 SM- reactive nst no vb lof good fm no regular ctx discussed IOL 40 weeks due to AMA. fu sunday to assess cervix 04/05/20 39w 6d 184 lb 124/72 Negative Negative 140 3 60 -2 nl dhruv bedside 8 cm. NST in good movements irregular contractions, discussed induction of labor if no active labor after membrane sweep today. Plan induction for . ACOG First Trimester First Trimester: Desire for , Alcohol, Tobacco Cessation, Illicit/Recreational Drug/Substance Use, Intimate Partner Violence, Barriers to care, Unstable Housing, Communication Barriers, Environmental/Work Hazards, Anticipated Course of Care, Toxoplasmosis Precations, Use of Any medications, Sexual activity, Exercise, Dental Care, Sauna/Hot tub use, Seat Belt use, Childbirth classes/Hospital facilities, , Travel, Indications for US and Screening for Aneuploidy Second Trimester Second Trimester: Signs and Symptoms of Labor, Selecting a care provider, Reproductive Life Planning, Care Planning, Tobacco Cessation, Depression/Anxiety and Intimate Partner Violence Third Trimester Third Trimester: Pain Management Plans, Labor support person(s), Immediate Larc, Movement Monitoring and Infant Feeding Yes ; discussed Trial of Labor after Counseling or discussed Circumcision preference Diagnostics Diagnostics Details: HIV: Urine Culture: Sequential Screen: NIPT Screen: ROS Const Reports system reviewed and no additional complaints, except as docu Card Reports system reviewed and no additional complaints, except as docu Resp Reports system reviewed and no additional complaints, except as docu GI Reports system reviewed and no additional complaints, except as docu, Reports nausea Reports system reviewed and no additional complaints, except as docu Musc Reports system reviewed and no additional complaints, except as docu Exam Const General: cooperative, healthy appearing, comfortable, anxious HENMT Head: normal to inspection Nose: external nose normal Face and sinus: normal facial exam Neck Neck: normal visual inspection, full ROM, no lymphadenopathy Thyroid: thyroid normal Chest Chest palpation & inspection: normal inspection of the chest Resp Effort & Inspection: normal respiratory effort GI Inspection: normal to inspection Palpation: soft, other (gravid uterus) Other: infant vertex and appropriate size for gestational age Other: Cervical Exam: Extrem General: pedal edema Office Procedures OB NST Non-Stress Test Indications for Monitoring: Yes Advanced maternal age Heart Rate Baseline: 140 Heart Rate Variability: moderate Movement: Present Heart Rate Accelerations: Present Decelerations: Absent Contractions: Absent Impression: Yes Reactive Non-Stress Test Category 1 Results POC Urinalysis 2 Dip (Clinic) Office Urine Glucose Negative Last Edit by Rain Lopez on 04/05/20 08:23 Office Urine Protein Negative Last Edit by Rain Lopez on 04/05/20 08:23 Assessment & Plan Problems 1. Supervision of high risk in first trimester O09.91 2. 39 weeks gestation of Z3A.39 3. Abnormal glucose affecting O99.810 4. Pyelectasis of fetus on ultrasound O35.8XX0 5. Fibroids D21.9 6. Multigravida of advanced maternal age in third trimester O09.523 7. Anxiety F41.9 45-year-old G3, P1 at 40 weeks 3 days presents for induction labor secondary to AMA Patient presents IOL, plan management for , pitocin/AROM . Pain management: plans epidural GBS negative Management of any complications:fredis I have reviewed the [facility] and made any clinically relevant updates. Orders Orders: OB NST 04/05/20 O09.523, O35.8XX0, O99.810, Z3A.39 POC Urinalysis 2 Dip (Clinic) 04/05/20 O09.523, O35.8XX0, O99.810, Z3A.39 Coding Level of Care Code OB Routine Diagnoses Supervision of high risk in first trimester O09.91 ??Trimester: first trimester 39 weeks gestation of Z3A.39 ??Weeks of gestation: 39 weeks Abnormal glucose affecting O99.810 Pyelectasis of fetus on ultrasound O35.8XX0 Fibroids D21.9 Multigravida of advanced maternal age in third trimester O09.523 ??Trimester: third trimester Anxiety F41.9 Additional Codes Non-Stress Test (79067)
[2020-04-08] MEDS: Lactated Ringers 500 ML 999 ML IV (13:08)
[2020-04-08] MEDS: Oxytocin 30 units/NS 500 ml 30 UNITS/500 ML IV.SOLN 334 UNITS IV (14:45)
--- NOTE | 2020-04-08 14:51 | PCM.OPRPT ---
Problem List (1) Encounter for induction of labor Status: Acute (2) AMA (advanced maternal age) multigravida 35+ Status: Acute Qualifiers: Comment: scheduled IOL 40 weeks. genetic counseling. growth scans q4wks, wkly NST starting at 32 weeks. Growth US 03/18 showed adequate growth (3) Abnormal glucose affecting Status: Acute Comment: declined 3gtt Home testing- normal Fastin-83 2hrPP 87-90; 90-95; 93-105 (4) Fibroids Status: Acute Comment: posterior cervical fibroid (5) Status: Acute Qualifiers: Comment: carrier, nipt-low risk, and ntd screening reviewed. anatomy reviewed. (6) Pyelectasis of fetus on ultrasound Status: Acute Comment: from 7mm to 12mm now, see 03/22 US note for plan for peds after delivery. urology consult, fu (7) Supervision of high-risk Status: Acute Qualifiers: Comment: PRR KATHY 04/06/20 girl nicky [place] Michael (8) Anxiety Status: Chronic Comment: no meds, counseling encouraged Vaginal Delivery Maternal Presentation: Medically Indicated Induction 45 yo @ 40w3d presents IOL Method of Induction: Pitocin Amniotic Membrane Rupture Type: Spontaneous Amniotic Fluid Description: Clear Final KATHY: 04/05/20 Gestational age: 40 Weeks and 3 Days Date of Procedure: 04/08/20 Pre-Operative Diagnosis: iol ama Post-Operative Diagnosis: same Surgery/ Procedure Performed: Spontaneous Vaginal Delivery Type of Anesthesia: None Description of Procedure: Patient began pushing and delivered the head in the ALEXANDRA presentation. The head was delivered atraumatically and a loose nuchal cord ?2 was identified and easily reduced over the 's head. The anterior and posterior shoulders delivered without complication followed by the rest of the and the infant was placed on the maternal abdomen. Delayed cord clamping was employed for approximately 60 seconds. Cord was clamped and cut and gentle traction was applied to the cord and the placenta delivered spontaneously immediately following it was noted to be intact with three-vessel cord. The perineum and vagina were inspected and noted to have no laceration. EBL was 100 cc. Patient and infant tolerated delivery well. Presentation: GISSELLE Estimated Blood Loss: 100 A gender: Female Episiotomy Description: None Laceration: None Medications given after delivery: IV Pitocin Complications: None Multi Select Codes - Urinary/Genital Urinary/Genital CPT Codes: 82019 Vaginal Delivery [facility]
[2020-04-08] MEDS: Naproxen 250 MG Tablet 500 MG PO (15:47)
[2020-04-08] MEDS: 0.9% Saline Lock 10 ML Syringe IV (17:27)
[2020-04-08] MEDS: Senna/Docusate Sodium 1 Tablet PO (20:27)
[2020-04-08] MEDS: Acetaminophen 500 MG Tablet 1000 MG PO (20:27)
--- NOTE | 2020-04-08 21:35 | DCINST_ITS ---
Discharge Diet: No Restrictions Discharge Activity: Return to Normal Activity, May not drive while taking narcotic pain medications., May Shower May resume sexual activity in: 4-6 weeks Call your doctor if your incision/area has: Continuous Slow Oozing, Sudden Increased Bleeding, Increased Pain/ Swelling, Increased Redness, Foul Smelling Discharge Additional Instructions: If you experience any of the following, contact your healthcare provider. * Bleeding that soaks a pad every hour for 2 hours * Fever 100.4 or higher * Unrelieved incision or abdominal pain * Swelling, redness, discharge or bleeding from your incision or episiotomy site * Your incision begins to separate * Problems urinating (including inability to urinate or burning while urinating). * Visual changes * Severe headache * Flu-like symptoms * Pain or redness in one of both of your breasts * Pain, warmth, tenderness or swelling in your legs, especially the calf area * Frequent nausea and vomiting * Symptoms of depression or anxiety If you experience any of the following, call 911 or go to the nearest Emergency Room. * Chest pain * Problems breathing * Seizure activity * Partial or complete paralysis of a body part, slurred speech, weakness or drooping of the face, or a sudden inability to walk or hold your balance Allergies/Adverse Reactions: Allergies adhesive Allergy (Verified 04/05/20 08:20) Rash latex Allergy (Verified 04/05/20 08:20) Rash Medications to take at Discharge Vits [Prenatabs FA] 1 tab PO DAILY 02/25/17 famotidine 20 mg tablet 20 mg PO DAILY #30 tab 10/14/19 Please Follow Up With: Sandi Tovar MD - [phone] When: Call to make an appointment with your doctor in 6 weeks. If you had elevated Blood pressure or 4th degree laceration you will need to be seen in 2 weeks. Primary Care Physician: Care Physician,No Primary [Primary Care Provider] - Test Results: Test results from this visit will be discussed in further detail at your follow- up appointment, if applicable.
--- NOTE | 2020-04-08 21:35 | PCM.DCVAG ---
Discharge Diet: No Restrictions Discharge Activity: Return to Normal Activity, May not drive while taking narcotic pain medications., May Shower May resume sexual activity in: 4-6 weeks Call your doctor if your incision/area has: Continuous Slow Oozing, Sudden Increased Bleeding, Increased Pain/ Swelling, Increased Redness, Foul Smelling Discharge Additional Instructions: If you experience any of the following, contact your healthcare provider. Bleeding that soaks a pad every hour for 2 hours Fever 100.4 or higher Unrelieved incision or abdominal pain Swelling, redness, discharge or bleeding from your incision or episiotomy site Your incision begins to separate Problems urinating (including inability to urinate or burning while urinating). Visual changes Severe headache Flu-like symptoms Pain or redness in one of both of your breasts Pain, warmth, tenderness or swelling in your legs, especially the calf area Frequent nausea and vomiting Symptoms of depression or anxiety If you experience any of the following, call 911 or go to the nearest Emergency Room. Chest pain Problems breathing Seizure activity Partial or complete paralysis of a body part, slurred speech, weakness or drooping of the face, or a sudden inability to walk or hold your balance Allergies/Adverse Reactions: Allergies adhesive Allergy (Verified 04/05/20 08:20) Rash latex Allergy (Verified 04/05/20 08:20) Rash Medications to take at Discharge Vits [Prenatabs FA] 1 tab PO DAILY 02/25/17 famotidine 20 mg tablet 20 mg PO DAILY #30 tab 10/14/19 Please Follow Up With: Sandi Tovar MD - [phone] When: Call to make an appointment with your doctor in 6 weeks. If you had elevated Blood pressure or 4th degree laceration you will need to be seen in 2 weeks. Primary Care Physician: Care Physician,No Primary [Primary Care Provider] - Test Results: Test results from this visit will be discussed in further detail at your follow-up appointment, if applicable.
[2020-04-09] MEDS: Naproxen 250 MG Tablet 500 MG PO ×2 (00:37→08:15)
[2020-04-09 04:35] VITALS: BP 104/61; PULSE 59; RESP 16; TEMP 36.9
[2020-04-09] MEDS: Acetaminophen 500 MG Tablet 1000 MG PO ×2 (04:43→16:39)
[2020-04-09 08:07] VITALS: BP 100/60; PULSE 58; RESP 16; TEMP 36.6
--- NOTE | 2020-04-09 09:09 | PCM.PN.OB ---
Patient Problems: Active and Suspected Problems (Last Reviewed 04/05/20 @ 08:21 by Rain Lopez) Encounter for induction of labor (Acute) Subjective: doing well no complaints pain controlled no CP SOB N V ambulating well tolerating po lochia moderate, going well - Physical Exam Vitals/I&O's: Vital Signs Temp Pulse Resp BP Pulse Ox 97.8 F 58 L 16 100/60 97 04/09/20 08:07 04/09/20 08:07 04/09/20 08:07 04/09/20 08:07 04/08/20 09:05 Oxygen Delivery Method Room Air Weight: 183 lb 13.848 oz Body Mass Index (BMI) 31.5 Intake and Output for Last 24 Hours 04/07/20 04/08/20 04/09/20 23:59 23:59 23:59 Intake Total 1527.74 / 1527.74 Balance 1527.74 / 1527.74 General: Alert, Oriented x3 Laboratory Results 04/08/20 08:00: Blood Type A POSITIVE, Antibody Screen NEGATIVE Current Medications Acetaminophen (Tylenol) 1,000 mg PO Q8H PRN PRN PRN Reason: Pain Score 1-3/10 Last Admin: 04/09/20 04:43 Dose: 1,000 mg Documented by: Bisacodyl (Dulcolax) 10 mg RECTAL UD PRN PRN Reason: If no BM Dibucaine (Dibucaine) 1 applic TOPICAL TID PRN PRN; Protocol PRN Reason: Discomfort Famotidine (Pepcid) 20 mg PO DAILY OSTO Last Admin: 04/09/20 08:16 Dose: Not Given Documented by: Hydrocortisone (Hytone) 1 applic TOPICAL TID PRN PRN; Protocol PRN Reason: Discomfort Methylergonovine Maleate (Methergine) 0.2 mg IM X1 PRN PRN Reason: Excess bleeding/uterine atony Naproxen (Naprosyn) 500 mg PO Q8H PRN PRN PRN Reason: Pain Score 1-3/10 Last Admin: 04/09/20 08:15 Dose: 500 mg Documented by: Ondansetron HCl (Zofran) 4 mg IV Q4H PRN PRN PRN Reason: Nausea Oxycodone HCl (Oxyir) 5 - 10 mg PO Q4H PRN PRN PRN Reason: Pain Score 4-10/10 Multivit/Folic Acid/Iron (Prenatabs Fa) 1 tablet PO DAILY SOTO Last Admin: 04/09/20 08:16 Dose: Not Given Documented by: Senna/Docusate Sodium (Senokot-S, Michaela-Colace) 1 - 2 tablet PO DAILY PRN PRN PRN Reason: Constipation Last Admin: 04/08/20 20:27 Dose: 1 tablet Documented by: Simethicone (Mylicon) 80 mg PO PCHS PRN PRN Reason: Indigestion/Stomach pain Sodium Chloride () 5 - 15 ml IV UD PRN PRN Reason: SALINE FLUSH Last Admin: 04/08/20 17:27 Dose: 10 ml Documented by: Medical Necessity - Tobacco Use Smoking Status: Never smoker Assessment/Plan All Active Problems (Last Reviewed 04/05/20 @ 08:21 by Rain Lopez) Encounter for induction of labor (Acute) AMA (advanced maternal age) multigravida 35+ (Acute) Fibroids (Acute) Pyelectasis of fetus on ultrasound (Acute) Abnormal glucose affecting (Acute) (Acute) Supervision of high-risk (Acute) Irregular menses (Resolved) Missed (Resolved) s/p PPD # 1 1. routine post delivery care 2. breast feeding- support given 3. rh positive 4. rubella immune
[2020-04-09 13:10] VITALS: BP 109/68; PULSE 64; RESP 14; TEMP 36.6
[2020-04-09 17:30] VITALS: BP 123/82; PULSE 70; RESP 14; TEMP 36.9
== END 2020-04-09 19:10 | disposition home or self-care (01) | DRG 807 ==
PROVIDERS: Admitting Provider Obstetrics & Gynecology; Referring Provider Obstetrics & Gynecology; Visit Provider Obstetrics & Gynecology
DX: O42.92 Full-term premature rupture of membranes, unspecified as to length of time between rupture and onset of labor (principal); Z37.0 Single live birth; O35.8XX0 Maternal care for other (suspected) fetal abnormality and damage, not applicable or unspecified; O69.81X0 Labor and delivery complicated by cord around neck, without compression, not applicable or unspecified; O99.814 Abnormal glucose complicating childbirth; O34.43 Maternal care for other abnormalities of cervix, third trimester; D26.0 Other benign neoplasm of cervix uteri; O99.344 Other mental disorders complicating childbirth; F41.9 Anxiety disorder, unspecified; Z3A.40 40 weeks gestation of pregnancy
CPT/HCPCS: 59025; 59050; 85025; 86850; 86900; 86901; 99218; J7120; A4216; G0378

== ENCOUNTER → 2020-07-23 13:21 | Outpatient (CLI) | payer OTHER, SELFPAY ==
[2020-05-24 15:02] VITALS: BMI 31.5
--- NOTE | 2020-07-23 13:21 | BI_ITS ---
MAMMOGRAPHY - BILATERAL SCREENING REASON FOR EXAM: Female, 45 years old. Routine annual screening examination. PERTINENT HISTORY: Grandmother with breast cancer. TECHNIQUE: Digital bilateral breast porsha (3D mammographic acquisition) in the CC and MLO projections. 2-D mediolateral oblique (MLO) and craniocaudad (CC) views of both breasts were obtained. CAD: Full Field Digital Mammography with Computer Added Detection was performed. COMPARISON: None. Baseline examination. FINDINGS: Breast Composition: The breasts are heterogeneously dense, which may obscure small masses. There are no dominant masses or suspicious calcifications. No other significant abnormalities are identified. BI/SCREEN MAMM (CAD) W/PORSHA BILAT IMPRESSION: Negative screening mammogram. Yearly followup mammogram recommended. (A) ASSESSMENT CATEGORY: BIRADS Category 1: Negative. A letter regarding these results will be sent to the patient by the facility within 30 days. Approximately 10% of breast cancers are not detected by mammography. A normal mammogram should not delay biopsy of a clinically suspicious abnormality. [id number] Electronically Signed: Arya Bhatti, at 14:41 EDT , Service support ,
== END ==
PROVIDERS: Visit Provider Obstetrics & Gynecology
DX: Z12.31 Encounter for screening mammogram for malignant neoplasm of breast (principal)
CPT/HCPCS: 77063; 77067

== ENCOUNTER → 2021-09-27 15:43 | Outpatient (CLI) | payer OTHER, SELFPAY ==
--- NOTE | 2021-09-27 15:46 | BI_ITS ---
MAMMOGRAPHY - BILATERAL SCREENING 3-D TOMOSYNTHESIS REASON FOR EXAM: Female, 46 years old. screening mammogram PERTINENT HISTORY: No significant family history. TECHNIQUE: 2-D mammograms and 3-D Tomosynthesis of the breast (s) were performed. CAD was performed. COMPARISON: 07/23/2020 FINDINGS: The breast composition is heterogeneously dense that can obscure small breast masses. Scattered benign calcifications are seen. No dense spiculated masses or suspicious microcalcifications are identified. No architectural distortion is identified. There is no skin thickening or retraction. There has been no significant change since the prior study. BI/SCRN MAMM (CAD)W/PORSHA BILAT IMPRESSION: No mammographic signs of malignancy. Routine yearly mammograms recommended. ASSESSMENT CATEGORY: BIRADS Category 1: Negative. A letter regarding these results will be sent to the patient by the facility within 30 days. FOLLOW UP RECOMMENDATION: Yearly follow up mammogram recommended. (A) Approximately 10% of breast cancers are not detected by mammography. A normal mammogram should not delay biopsy of a clinically suspicious abnormality. Electronically Signed: Dean Elena MD at 16:36 EST Tel , Service support ,
== END ==
PROVIDERS: Visit Provider Obstetrics & Gynecology
DX: Z12.31 Encounter for screening mammogram for malignant neoplasm of breast (principal)
CPT/HCPCS: 77063; 77067

== ENCOUNTER 2025-06-07 19:45 | Emergency (ER) | payer OTHER, SELFPAY ==
[2025-06-07 19:46] VITALS: BP 142/104; PULSE 88; RESP 16; TEMP 36.6; O2SAT 100
--- NOTE | 2025-06-07 20:21 | EX.ED.DYSGE1 ---
HPI History of Present Illness Chief Complaint: Lower Extremity Injury [facility] Medical History Basal cell carcinoma of skin Anemia Anxiety with depression Home Medications ?Medication ?Instructions ?Recorded ?Last Taken ?Type vits,calcium no.78-iron 1 tab PO DAILY 02/25/17 02/25/17 08:00 History fumarate-folic acid 29 mg-1 mg 1 tablet segesterone acet 0.15 mg-ethinyl 1 vag ring vaginal Q4W #1 ea 07/21/20 Unknown Rx estradiol 0.013 mg/24 hr vaginal ring ([place]) Allergy/AdvReac Type Severity Reaction Status Date / Time adhesive Allergy Rash Verified 06/07/25 19:45 latex Allergy Rash Verified 06/07/25 19:45 Family History Mother Hyperlipidemia Father Diabetes Hyperlipidemia Hypertension Surgical History H/O dilation and curettage History of oral surgery History of tonsillectomy Social History (Updated 05/26/21 @ 15:48 by Deja Nassar) Smoking Status: Never smoker alcohol intake: never substance use type: does not use caffeine: No what type of physical activity do you participate in: walking seatbelt use: always do you feel safe at home: Yes additional social history: 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 REVIEW OF SYSTEMS: Pertinent positives: Right knee pain Pertinent negatives: Loss of sensation PHYSICAL EXAM: Nursing triage notes reviewed, Vital signs reviewed Constitutional: please see mdm Extremities: Swelling over right knee decreased range of motion secondary to pain, palpable effusion. No TTP over right ankle or right hip. Negative logroll in the right leg. Neuro: Intact sensation L1-S1 dermatomal distributions. Intact 5/5 strength in hip flexion (T12-L3). Knee extension (L2-L4). Ankle dorsiflexion (L4-L5). Ankle plantar flexion (S1). Great toe extension (L5). 2+ patellar and Achilles DTRs. Skin: Abrasion over right knee but no sign of open fracture MEDICAL DECISION MAKING: Chief Complaint: please see HPI MDM Narrative: The patient was initially hemodynamically stable, afebrile and nontoxic-appearing. Exam with palpable effusion, small abrasion over the right knee. No obvious ligamentous laxity or signs of open fracture I considered the following differential diagnosis: Knee fracture, dislocation, contusion I obtained an x-ray to further determine if the patient was suffering from a life-threatening etiology. Give Tylenol ibuprofen for initial pain control ALL IMAGES (IF OBTAINED) HAVE BEEN PERSONALLY REVIEWED AND INTERPRETED BY MYSELF. X-ray of the right knee was read and reviewed personally by myself showed no sign of fracture or dislocation.. Radiologist agrees my interpretation. Patient was provided after crutches. Second suffering from a posttraumatic knee effusion. This should resolve with time. Gave close outpatient PCP and orthopedic follow-up. The patient and/or family, caregivers express understanding. The patient and/or family, caregivers agrees with the plan. Shared decision making: I will have a discussion with the patient and or visitors regarding risk/benefits of further testing or admission. They will be made aware of of the risk/benefits inherent in this decision they will be given the opportunity to voice understanding. Total critical care time today provided was at least 0 minutes. This excludes separately billable procedures. Critical care time (if documented) is secondary to the patient having high probability of clinically significant/life threatening deterioration in the patient's condition which required my urgent intervention. Impression: 1. Acute knee pain 2. Knee effusion Dispo: DC This note was generated with [employer] dictation software. It may contain incorrect words, spelling, and punctuation that were not noted in review of the chart prior to signing. Radiography Diagnostic Testing: Clinical Impression(s) from Imaging Studies Knee X-Ray 06/07/25 20:30 IMPRESSION: Soft tissue swelling. - Findings discussed above in detail. Reading Location: [facility] Discharge Plan Triage Chief Complaint: Lower Extremity Injury ED Provider: Peng Rashid Dx/Rx/DC Orders Instructions: ED Fluid on the Knee Prescriptions: No Action vit,helga [id number] 1 TABLET tablet 1 tab PO DAILY [place] 0.15-0.013 mg/24 hour ring 1 vag ring vaginal Q4W Qty: 1 0RF Rx Instructions: use continuously x 1 year Primary Care Provider: Kunal Garcia Referrals: Kunal Garcia, DO [Primary Care Provider] - Byran Mcdonald MD [Med Staff - Active Staff] - Activity Restrictions/Additional Instructions: Thank you for trusting us with your care today! The x-ray of your right knee showed no sign of a broken bone or dislocated joint. The swelling that you are seeing is related to an effusion which is fluid that came into the body after trauma. This should resolve with time and range of motion exercises Please use knee immobilizer for comfort and stability. Please use crutches to aid in mobilization. Please perform passive range of motion exercises daily this is a can do stretching and taking her knee there is full range of motion. Please take Tylenol (2 pills, 650 mg), ibuprofen (2 pills, 400 mg) every 6 hours as needed for pain and fever control. Please return to the emergency department if your symptoms change or worsen. Please follow with your primary care physician and/or orthopedic surgeon for further outpatient evaluation and management. Print Language: Bermudian Disposition Disposition: Home, Self Care
--- OUTSIDE RECORDS SUMMARY | 2025-06-07 20:27 | XMS RPT_ITS | CCD ---
Author Organization [facility] Care Team Providers Care Brancher Name Role Phone Unavailable Primary Care Provider UnavailKunal Blackwell DO Primary Care Provider Chris FAMILY READINESS SUPPORT ASSISTANT.ELTON, Kendy Gonzales Unavailable [facility] FAMILY READINESS SUPPORT ASSISTANT.Julia CONDE Unavailable [facility] FAMILY READINESS SUPPORT ASSISTANT.Sue CONDE Unavailable KRISTA SLAUGHTER Attending Unavailable KUNAL MYERS Primary Care Unavailable KRISTA SLAUGHTER Attending Unavailable KUNAL MYERS Primary Care Unavailable KUNAL MYERS Attending Unavailable KUNAL MYERS Primary Care Unavailable KUNAL MYERS Referring Unavailable KUNAL MYERS Primary Care Unavailable KUNAL MYERS Referring Unavailable KUNAL MYERS Primary Care Unavailable NATACHA CASTRO Attending Unavailable SELF Referring Unavailable KUNAL MYERS Primary Care Unavailable Allergies Allergy Classification Reported Allergen(s) Allergy Type Date of Onset Reaction(s) Facility (14 sources) Adhesive Tape; Translations: [ADHESIVE TAPE (ROSINS)] Propensity to adverse reactions 03-18-2008 [facility] Work Phone: (14 sources) Bacitracin; Translations: [BACITRACIN] Drug Allergy 03-18-2008 [facility] Work Phone: Medications Current Medications Medication Drug Class(es) Dates Sig (Normalized) Sig (Original) amoxicillin 500 mg oral capsule (1 source) Penicillin-class Antibacterial Start: 11-13-2024 End: 11-23-2024 take 1 capsule by mouth twice daily amoxicillin (AMOXIL) 500 mg capsule Indications: Sore throat Take 1 capsule by mouth two times a day for 10 days. 20 capsule 11/13/2024 11/23/2024 Active doxycycline monohydrate 100 mg oral tablet (1 source) Tetracycline-class Drug Start: 01-05-2022 End: 01-15-2022 take 1 tablet by mouth twice daily doxycycline monohydrate 100 mg tablet Indications: Sinobronchitis Take 1 tablet by mouth twice daily for 10 days. May transfer to [facility] if less expensive. 20 tablet 0 01/05/2022 01/15/2022 Active Comment on above: Take 1 tablet by [facility] twice daily for 10 days. May transfer to [facility] if less expensive. DULoxetine 60 mg delayed release oral capsule (5 sources) Serotonin and Norepinephrine Reuptake Inhibitor Start: 03-16-2025 End: 04-13-2025 take 1 capsule by mouth once daily DULoxetine (CYMBALTA) 60 mg capsule Take 1 capsule by mouth once daily. 90 capsule 1 04/13/2025 Active Start: 03-13-2025 End: 03-16-2025 take 1 capsule by mouth once daily DULoxetine (CYMBALTA) 30 mg capsule Indications: Moderate episode of recurrent major depressive disorder (HCC) Take 1 capsule by mouth once daily. 30 capsule 1 03/13/2025 03/16/2025 Discontinued levomefolate (DEPLIN, ALGAL OIL,) 15 mg capsules (1 source) Start: 04-13-2025 take 1 capsule by mouth once daily levomefolate (DEPLIN, ALGAL OIL,) 15 mg capsules Take 1 capsule by mouth once daily. 90 capsule 1 04/13/2025 Active predniSONE 20 mg oral tablet (1 source) Start: 01-05-2022 End: 01-10-2022 take 2 tablets by mouth once daily predniSONE (DELTASONE) 20 mg tablet Indications: Sinobronchitis Take 2 tablets by mouth once daily for 5 days. 10 tablet 0 01/05/2022 01/10/2022 Active Comment on above: Take 2 tablets by mo [facility] once daily for 5 days. Completed/Discontinued Medications Medication Drug Class(es) Dates Sig (Normalized) Sig (Original) benzonatate 100 mg oral capsule (11 sources) Non-narcotic Antitussive Start: 01-05-2022 End: 03-13-2025 take 2 capsules by mouth three times daily as needed benzonatate (TESSALON PERLE) 100 mg capsule Indications: Sinobronchitis Take 2 capsules by mouth three times daily as needed. 30 capsule 01/05/2022 03/13/2025 Discontinued (Other) Comment on above: Take 2 capsules by m outh three times daily as needed. Blood-Glucose Meter (GLUCOMETER ELITE CLASSIC) monitoring kit (11 sources) Start: 01-03-2017 End: 03-13-2025 Blood-Glucose Meter (GLUCOMETER ELITE CLASSIC) monitoring kit Indications: Gestational diabetes mellitus, class A1 (HCC) 1 Each as needed. USE DIRECTED, 2 TO 6 TIMES A DAY 1 Each 01/03/2017 03/13/2025 Discontinued (Other) Start: 01-03-2017 Blood-Glucose Meter (GLUCOMETER ELITE CLASSIC) monitoring kit Indications: Gestational diabetes mellitus, class A1 1 Each as needed. USE DIRECTED, 2 TO 6 TIMES A DAY 1 Each 01/03/2017 Active Start: 01-03-2017 Blood-Glucose Meter (GLUCOMETER ELITE CLASSIC) monitoring kit Indications: Gestational diabetes mellitus, class A1 1 Each as needed. USE DIRECTED, 2 TO 6 TIMES A DAY 1 Each 0 01/03/2017 Active Comment on above: 1 Each as needed. US E DIRECTED, 2 TO 6 TIMES A DAY Blood-Glucose Meter misc (11 sources) Start: 01-08-2017 End: 03-13-2025 Blood-Glucose Meter misc Indications: Abnormal maternal glucose tolerance, antepartum (HCC) 1 Each as directed. 1 Each 01/08/2017 03/13/2025 Discontinued (Other) Start: 01-08-2017 Blood-Glucose Meter misc Indications: Abnormal maternal glucose tolerance, antepartum 1 Each as directed. 1 Each 01/08/2017 Active Start: 01-08-2017 Blood-Glucose Meter misc Indications: Abnormal maternal glucose tolerance, antepartum 1 Each as directed. 1 Each 0 01/08/2017 Active Comment on above: 1 Each as directed. Breast Pump Device (11 sources) Start: 12-14-2016 End: 03-13-2025 Breast Pump Device As directed 1 Device 12/14/2016 03/13/2025 Discontinued Start: 12-14-2016 Breast Pump De vice As directed 1 Device 12/14/2016 Active Start: 12-14-2016 Breast Pump De vice As directed 1 Device 0 12/14/2016 Active Comment on above: As directed 21 day ethinyl estradiol 0.402691 mg/hr / etonogestrel 0.005 mg/hr vaginal system (20 sources) Progestin, Estrogen Start: 04-10-2017 End: 03-13-2025 Etonogestrel-Ethinyl Estradiol (NUVARING) 0.12-0.015 mg/24 hr vaginal ring Use 1 Each vaginally as directed. Place ring for 24 days, remove for 4 days and repeat 1 Each 12 04/10/2017 03/13/2025 Discontinued Start: 11-29-2015 End: 03-13-2025 Etonogestrel-Ethinyl Estradi ol (NUVARING) 0.12-0.015 mg/24 hr vaginal ring Indications: contraception Insert vaginally and leave in place for 3 consecutive weeks, then remove for 1 week. Indications: CONTRACEPTION 3 Each 3 11/29/2015 03/13/2025 Discontinued Comment on above: Insert vaginally and leave in place for 3 consecutive weeks, then remove for 1 week. Indications: CONTRACEPTION Use 1 Each vaginally as directed. Place ring for 24 days, remove for 4 days and repeat ibuprofen 200 mg oral tablet (11 sources) Nonsteroidal Anti-inflammatory Drug Start: 2 End: 5 take 200-400 mg by mouth every four hours as needed ibuprofen 200 mg tablet Take 1-2 tablets by mouth every 4 hours as needed. FOR PAIN. 0 09/18/2012 03/13/2025 Discontinued Comment on above: Take 1-2 tablets by mouth every 4 hours as needed. FOR PAIN. isopropyl alcohol 0.7 ml/ml medicated pad (11 sources) Start: 7 End: 5 Alcohol Swabs (ALCOHOL WIPES) padm Indications: Gestational diabetes mellitus, class A1 ([facility]) Apply 1 application to affected area as needed. 120 Each 5 01/03/2017 03/13/2025 Discontinued Comment on above: Apply 1 application to affected area as needed. Xpshpepv-Bp-Kwb-Fe -FA ( VITAMIN) tab (11 sources) End: 5 take 1 tablet by mouth once Wnjsocek-Eq-Vgj-Fe-FA ( VITAMIN) tab Take 1 tablet by mouth. 03/13/2025 Discontinued take 1 tablet by mouth once Pren atal Ckpyvkns-Wp-Thq-Fe-FA ( VITAMIN) tab Take 1 tablet by mouth. Active take 1 tablet by mouth once Pren atal Vqtphsad-Uc-Gaz-Fe-FA ( VITAMIN) tab Take 1 tablet by mouth. 0 Active Comment on above: Take 1 tablet by nikos th. Problems Active Problems Problem Classification Problem Date Documented Da te Episodic/Chronic Adjustment disorders (2 sources) Adjustment disorder with mixed anxiety and depressed mood; Translations: [Adjustment disorder with mixed anxiety and depressed mood] Onset: 04-13-2025 04-13-2025 Chronic Mood disorders (2 sources) Moderate recurrent major depression; Translations: [Major depressive disorder, recurrent, moderate] Onset: 03-13-2025 03-13-2025 Chronic Other upper respiratory infections (2 sources) Chronic sinusitis; Translations: [Chronic sinusitis, unspecified] Chronic Past or Other Problems Problem Classification Problem Date Documented Da te Episodic/Chronic Diabetes or abnormal glucose tolerance complicating ; childbirth; or the puerperium (20 sources) History of gestational diabetes mellitus; Translations: [Personal history of gestational diabetes] Onset: 12-15-2016 Resolved: 04-10-2017 04-10-2017 Episodic Other complications of (10 sources) Spotting per vagina in ; Translations: [Spotting complicating , unspecified trimester] Onset: 07-20-2016 Resolved: 01-15-2017 09-27-2021 Episodic Other complications of (10 sources) Elderly primigravida; Translations: [Supervision of elderly primigravida, unspecified trimester] Onset: 07-20-2016 Resolved: 04-10-2017 09-27-2021 Episodic Other screening for suspected conditions (not mental disorders or infectious disease) (3 sources) Patient encounter status; Translations: [Encounter for screening mammogram for malignant neoplasm of breast] Onset: 07-09-2024 07-09-2024 Episodic Other upper respiratory infections (2 sources) Sore throat symptom; Translations: [Acute pharyngitis, unspecified] Onset: 11-13-2024 11-13-2024 Episodic Screening and history of mental health and substance abuse codes (13 sources) H/O: depression; Translations: [Personal history of other mental and behavioral disorders] Onset: 07-20-2016 09-27-2021 Episodic Results Test Name Value Interpretation Reference Range Facility [facility] 04-13-2025 CN Office Visit (FAMWS ) -------- BRYNN CHENG ([id number]) 1975 F Date Time Provider Department 04/13/25 3:00 PM [facility] During your visit today, we recorded the following information about you: Pulse Respiration Blood pressure 80/minute 16/minute 116/78 Krista Slaughter APRN.CNP 04/13/2025 3:48 PM Signed - Continue taking Cymbalta (duloxetine) 60 mg daily as prescribed; a 90-day supply has been sent to your [facility]. It may take up to one month for the full benefit, and mood ?ups and downs? are normal during this time. - Begin Deplin (L-methylfolate) as prescribed; a 90-day supply has been sent to your [facility]. If [facility] cannot fill it, send a [employer] message with the address of your preferred [facility] mail-order pharmacy or request a printed prescription to car pick up driver or have mailed to you. - Attend your follow-up appointment with Dr. Myers in July to review your progress and arrange any future refills. Krista Slaughter APRN.CNP 04/13/2025 10:39 PM Signed This is a 50 year old female who presents today with: Brynn Recinos Kurtis is a 50-year-old female with a history of depression, presenting for follow-up. HISTORY OF PRESENT ILLNESS: Depression: - Currently taking Cymbalta 60 mg daily x2.5 weeks; previously on 30 mg daily x1-2 weeks. - Reports less drastic improvement compared to previous experiences with Cymbalta. - Noted 5-6 consecutive really good strong days last week. - Has been on Cymbalta twice before, once for 3 months and once for 1 month, with instant improvement. - Inquired about Deplin availability; previously obtained from [facility], but [facility] pharmacist indicated a prescription is required. - Sleep is generally good, though frequently interrupted by her two young children. - Energy levels have improved, with a recent energy surge last week. - Motivation has increased compared to pre-medication levels. - Experienced lower energy over the weekend due to emotional distress related to divorce. PAST MEDICAL HISTORY: PAST MEDICAL HISTORY Diagnosis Date Anemia depression and anxiety Gestational diabetes mellitus, class A1 (HCC) 01/03/2017 [facility] - PAST MEDICAL HISTORY OF BASAL CELL CARCINOMA PAST SURGICAL HISTORY Procedure Laterality Date EXTRACTION, ERUPTED TOOTH OR EXPOSED ROOT (ELEVATION AND/OR FORCEPS REMOVAL) 07/2014 and was in hospital to get abcess removed from infection after PAST SURGICAL HISTORY OF BASAL CELL REMOVED FROM RIGHT PRESYBETERIAN -2 PAST SURGICAL HISTORY OF DEVIATED SEPTUM TONSILLECTOMY PRIMARY/SECONDARY Tonsillectomy ALLERGIES Adhesive Tape (Rosins) and Bacitracin MEDICATIONS Current Outpatient Medications Medication Sig levomefolate (DEPLIN, ALGAL OIL,) 15 mg capsules Take 1 capsule by mouth once daily. DULoxetine (CYMBALTA) 60 mg capsule Take 1 capsule by mouth once daily. No current facility-administered medications for this visit. FAMILY HISTORY Problem Relation Age of Onset Lipids Father Hypertension Father Diabetes Father Lipids Maternal Grandmother Diabetes Maternal Grandfather Heart Paternal Grandfather Hypertension Paternal Grandfather Lipids Maternal Aunt Social History Tobacco Use Smoking status: Never Smokeless tobacco: Never Substance Use Topics Alcohol use: No Drug use: No REVIEW OF SYSTEMS Constitutional: (+) fatigue, (+) sleep disturbance Psychiatric: (+) grief EXAM: BP 116/78 Pulse 80 Resp 16 LMP 05/12/2024 (Approximate) SpO2 99% PHYSICAL EXAM: General Appearance: Well appearing, alert, in no acute distress, well-hydrated, well nourished.. Skin: Skin color, texture, turgor normal, no suspicious rashes or lesions. Head: Normocephalic, no masses, lesions, tenderness or abnormalities. Eyes: Anicteric sclera. Extraocular movements are intact. . Neurologic: Gait normal. ASSESSMENT/PLAN 1. Adjustment disorder with mixed anxiety and depressed mood (F43.23) - Currently on duloxetine 60 mg for two and a half weeks; experiencing some improvement but not as significant as previous experiences with the medication. - Educated that full therapeutic effect of duloxetine can take up to a month. - Noted fluctuations in mood and energy levels; experiencing both good and bad days. - Sleep is generally good, though occasionally interrupted due to having young children; no significant worsening of sleep quality. - Energy levels have shown some improvement, with periods of increased motivation. - Prescribed Deplin, sent to [facility] pharmacy; discussed options for obtaining medication if [facility] is unable to fill it, including mail order through [facility] or [facility]. - Converted duloxetine prescription to a 90-day supply with one refill, sent to [facility] pharmacy. - Follow-up appointment scheduled with Dr. Myers in July to assess progress and determine need (more content not included)... [facility] BRYNN CHENG ([id number]) 1975 F Date Time Provider Department 03/16/25 [facility]NAL MYERS [facility] During your visit today, we recorded the following information about you: Trinity Yuan, RN 03/16/2025 11:05 AM Signed Pt reports Felipe Slaughter, prescribed her cymbalta 30 mg daily on Sunday. Reports she has started on 60 mg in the past and the 30 mg does not seem enough. Reports with the 60 mg she usually notices a difference quickly. Reports the 30 mg has not made a difference at all yet. Pt asking if provider could increase cymbalta to 60 mg daily? Please advise pt. Krista Slaughter APRN.ELTON 03/16/2025 5:27 PM Signed Yes, if she is tolerating the dose okay, she can increase to the 60 mg daily. She can use two of her current pills. I sent a new script for the 60 mg to the pharmacy. Krista Slaughter APRN.Neymar Rouse LPN 03/16/2025 6:04 PM Signed Pt notified of provider response. She verbalized understanding. Neymar Devries LPN Allergies As of Date: 03/16/2025 Noted Allergy Reaction ADHESIVE TAPE (ROSINS) 03/18/2008 2 - Rash BACITRACIN 03/18/2008 2 - Rash Date Reviewed: 03/13/2025 Reviewed by: Neymar Devries LPN - Fully Assessed Reason for Visit: Medication Problem [65] Order(s):DULoxetine (CYMBALTA) 60 mg capsuleTake 1 capsule by mouth once daily.Disp: 30 capsuleRfl: 1 Prescriptions as of 03/16/2025 - DULoxetine (CYMBALTA) 60 mg capsule Take 1 capsule by mouth once daily. Problem List As Of Date 03/16/2025 Noted Resolved Spotting in [O26.859] 07/20/2016 01/15/2017 History of depression [Z86.59] 07/20/2016 Advanced maternal age, 1st [O09.519] 07/20/2016 04/10/2017 Abnormal O'Griffith glucose challenge test, ant*12/15/2016 01/15/2017 Gestational diabetes mellitus, class A1 [O24.41*01/03/2017 04/10/2017 History of gestational diabetes mellitus, not p*04/10/2017 Prescriptions ordered this encounter Disp Refills Start End DULOXETINE 60 MG CAPSULE,DELAYED REL* 30 c* 1 03/16/2025 Route: PO Sig: Take 1 capsule by mouth once daily. Medications Discontinued During This Encounter Prescriptions - DULoxetine (CYMBALTA) 30 mg capsule (Discontinued) Take 1 capsule by mouth once daily. Encounter Status:Closed by NEYMAR DEVRIES on 03/16/25 [facility] CNOVon 03-13-2025 CNOV Office Visit (FARIDEHPWS ) -------- BRYNN CHENG ([id number]) 1975 F Date Time Provider Department 03/13/25 1:40 PM [facility] SLAUGHTER [facility] During your visit today, we recorded the following information about you: Pulse Respiration Blood pressure 63/minute minute 124/82 Krista Slaughter, RENETTA.[employer] 03/13/2025 3:22 PM Signed This is a 50 year old female who presents today with: Patient presents with: Depression HISTORY OF PRESENT ILLNESS: Brynn Cheng is a 50 year old female. Patient presents with: Depression Cymbalta with deplin. Refers was on it last around 37. Has tried some other medications in the past, which had made symptoms worse or she would hear voices (with wellbutrin). Depression evaluation: Sadness: yes Sleep: more disrupted sleep recently. More trouble with falling asleep. 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 Guilt: not a good enough mom. Energy Levels: very low. Very unmotivated. Concentration: not as good. Appetite: refers recent weight gain -- comfort eater. Physical: migraines have been more with the stress. Suicidal/homicidal ideation: no Feels stuck. Goes to counseling since about 2018. On 3rd counselor. PAST MEDICAL HISTORY: PAST MEDICAL HISTORY Diagnosis Date Anemia depression and anxiety Gestational diabetes mellitus, class A1 (HCC) 01/03/2017 PMH - PAST MEDICAL HISTORY OF BASAL CELL CARCINOMA PAST SURGICAL HISTORY Procedure Laterality Date EXTRACTION, ERUPTED TOOTH OR EXPOSED ROOT (ELEVATION AND/OR FORCEPS REMOVAL) 07/2014 and was in hospital to get abcess removed from infection after PAST SURGICAL HISTORY OF BASAL CELL REMOVED FROM RIGHT PRESYBETERIAN -2 PAST SURGICAL HISTORY OF DEVIATED SEPTUM TONSILLECTOMY PRIMARY/SECONDARY Tonsillectomy ALLERGIES Adhesive Tape (Rosins) and Bacitracin MEDICATIONS No current outpatient medications on file. No current facility-administered medications for this visit. FAMILY HISTORY Problem Relation Age of Onset Lipids Father Hypertension Father Diabetes Father Lipids Maternal Grandmother Diabetes Maternal Grandfather Heart Paternal Grandfather Hypertension Paternal Grandfather Lipids Maternal Aunt Social History Tobacco Use Smoking status: Never Smokeless tobacco: Never Substance Use Topics Alcohol use: No Drug use: No EXAM: BP 124/82 Pulse 63 Resp 16 LMP 05/12/2024 (Approximate) SpO2 100% PHYSICAL EXAM: General Appearance: Well appearing, alert, in no acute distress, well-hydrated, well nourished.. Skin: Skin color, texture, turgor normal, no suspicious rashes or lesions. Head: Normocephalic, no masses, lesions, tenderness or abnormalities. Eyes: Anicteric sclera. Extraocular movements are intact. . Lungs: Lungs clear to auscultation. No wheezing, rhonchi, rales.. Heart: RRR without murmur, gallop, or rubs. No ectopy. Neurologic: Gait normal. ASSESSMENT/PLAN: 1. Moderate episode of recurrent major depressive disorder (HCC) - ICD9: 296.32, ICD10: F33.1 She previously was success with duloxetine. She is interested in restarting this. She has only taken short-term in the past (a few months) as would feel better and then stop the medication. Discussed that longer treatment may be helpful in controlling symptoms. - DULOXETINE 30 MG CAPSULE,DELAYED RELEASE Recheck in 1 month, sooner if needed. Discussed treatment plan and patient voices understanding. Patient's questions answered appropriately. Medications and potential side effects were discussed and patient voices understanding. Return to the office as scheduled or as needed for worsening/no improvement. Krista Slaughter APRN.Krista Waggoner APRN.CNP 03/13/2025 2:13 PM Signed Start the cymbalta. Recheck in a month. Definitely let us know sooner if any problems/concerns. Allergies As of Date: 03/13/2025 Noted Allergy Reaction ADHESIVE TAPE (ROSINS) 03/18/2008 2 - Rash BACITRACIN 03/18/2008 2 - Rash Date Reviewed: 03/13/2025 Reviewed by: Neymar Devries LPN - Fully Assessed Reason for Visit: Depression [32] Primary Visit Diagnosis:Moderate episode of recurrent major depressive disorder (HCC) [F33.1] Order(s):DULoxetine (CYMBALTA) 30 mg capsuleTake 1 capsule by mouth once daily.Disp: 30 capsuleRfl: 1 Prescriptions as of 03/13/2025 - DULoxetine (CYMBALTA) 30 mg capsule Take 1 capsule by mouth once daily. Problem List As Of Date 03/13/2025 Noted Resolved Spotting in [O26.859] 07/20/2016 01/15/2017 History of depression [Z86.59] 07/20/2016 Advanced maternal age, 1st [O09.519] 07/20/2016 04/10/2017 Abnormal O'Griffith glucose challenge test, ant*12/15/2016 01/15/2017 Gestational diabetes mellitus, class A1 [O24.41*01/03/2017 04/10/2017 History of gestational diabetes mellitus, not p*04/10/2017 Other inst (more content not included)... Normal [facility] CNOVon 11-13-2024 CNOV Office Visit (FAMPWS ) -------- BRYNN CHENG ([id number]) 1975 F Date Time Provider Department 11/13/24 2:40 PM NATACHA CASTRO [facility] During your visit today, we recorded the following information about you: Temperature Pulse Blood pressure Weight 98.5 degrees 74/minute 114/78 82.1 kg Natacha Castro, FAMILY READINESS SUPPORT ASSISTANT.[facility] 11/13/2024 3:05 PM Signed Chief Complaint Patient presents with: Headache body aches Fever Sore Throat Cough HPI Brynnmalou Cheng is a 49 year old female who presents here today for Above Complaints. Patient presents for headache, body aches, fever, sore throat and cough. 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 Unclear start to symptoms due to chronic sinusitis. Past medical history, appointments, medications, allergies reviewed. Previous Medical History PAST MEDICAL HISTORY Diagnosis Date Anemia depression and anxiety Gestational diabetes mellitus, class A1 01/03/2017 PMH - PAST MEDICAL HISTORY OF BASAL CELL CARCINOMA Previous Surgical History PAST SURGICAL HISTORY Procedure Laterality Date EXTRACTION, ERUPTED TOOTH OR EXPOSED ROOT (ELEVATION AND/OR FORCEPS REMOVAL) 07/2014 and was in hospital to get abcess removed from infection after PAST SURGICAL HISTORY OF BASAL CELL REMOVED FROM RIGHT PRESYBETERIAN -2 PAST SURGICAL HISTORY OF DEVIATED SEPTUM TONSILLECTOMY PRIMARY/SECONDARY Tonsillectomy Family History FAMILY HISTORY Problem Relation Age of Onset Lipids Father Hypertension Father Diabetes Father Lipids Maternal Grandmother Diabetes Maternal Grandfather Heart Paternal Grandfather Hypertension Paternal Grandfather Lipids Maternal Aunt Patient Allergies ALLERGIES Allergen Reactions Adhesive Tape (Thais* Rash Bacitracin Rash Current Medications Current Outpatient Medications on File Prior to Visit Medication Sig benzonatate (TESSALON PERLE) 100 mg capsule Take 2 capsules by mouth three times daily as needed. Etonogestrel-Ethinyl Estradiol (NUVARING) 0.12-0.015 mg/24 hr vaginal ring Use 1 Each vaginally as directed. Place ring for 24 days, remove for 4 days and repeat (Patient not taking: Reported on 11/04/2019 ) Blood-Glucose Meter misc 1 Each as directed. (Patient not taking: Reported on 11/04/2019 ) blood sugar diagnostic test strip 1 Strip four times daily. Use as instructed (Patient not taking: Reported on 11/04/2019 ) Lancets lancets 1 Each four times daily. Use as instructed (Patient not taking: Reported on 01/05/2022 ) Urine Glucose-Ketones Test (KETO-DIASTIX) strp 1 Strip four times daily. (Patient not taking: Reported on 01/05/2022 ) Blood-Glucose Meter (GLUCOMETER ELITE CLASSIC) monitoring kit 1 Each as needed. USE DIRECTED, 2 TO 6 TIMES A DAY (Patient not taking: Reported on 11/04/2019 ) blood sugar diagnostic (GLUCOSTIX TEST) test strip Check glucose fasting in morning and 2 hours after every meal. (Patient not taking: Reported on 11/04/2019 ) Lancets (FINGERSTIX LANCETS) lancets Check glucose fasting in morning and 2 hours after every meal. (Patient not taking: Reported on 01/05/2022 ) Alcohol Swabs (ALCOHOL WIPES) padm Apply 1 application to affected area as needed. (Patient not taking: Reported on 11/04/2019 ) Breast Pump Device As directed (Patient not taking: Reported on 11/04/2019 ) Vsqwfvoq-Sw-Knp-Fe-FA ( VITAMIN) tab Take 1 tablet by mouth. (Patient not taking: Reported on 01/05/2022 ) Etonogestrel-Ethinyl Estradiol (NUVARING) 0.12-0.015 mg/24 hr vaginal ring Insert vaginally and leave in place for 3 consecutive weeks, then remove for 1 week. Indications: CONTRACEPTION (Patient not taking: Reported on 11/04/2019 ) ibuprofen 200 mg tablet Take 1-2 tablets by mouth every 4 hours as needed. FOR PAIN. (Patient not taking: Reported on 11/04/2019 ) No current facility-administered medications on file prior to visit. Social History Social History Tobacco Use Smoking status: Never Smokeless tobacco: Never Substance Use Topics Alcohol use: No Drug use: No Review of Symptoms REVIEW OF SYSTEMS SEE HPI EXAM: BP 114/78 Pulse 74 Temp 36.9 ?C (98.5 ?F) Wt 82.1 kg (181 lb) LMP 05/12/2024 (Approximate) SpO2 100% BMI 31.28 kg/m? General Appearance: Well appearing, alert, in no acute distress, well-hydrated, well nourished. Nose/Sinuses: Positive findings: mucosa erythematous and swollen, purulent rhinorrhea. Oropharynx: Positive findings: moderate oropharyngeal erythema, Lungs: Lungs clear to auscultation. No wheezing, rhonchi, rales.. Heart: RRR without murmur, gallop, or rubs. No ectopy. Health Maintenance List Depression Screening Never done Anxiety Screening Never done Hepatitis C Screening Never done Hepatitis B Vaccine(1 of 3 - 19+ 3-dose series) Never done Colorectal Cancer Screening Never done Influenza V (more content not included)... Normal [facility] STREP A MOLECULAR (POC)on Interpretation and review of laboratory results Abnormal [facility] Procedural Control Valid [facility] [place] Strep A (POCT) Positive Abnormal Negative [facility] BRYNN CHENG ([id number]) 1975 F Date Time Provider Department [facility] your visit today, we recorded the following information about you: Kunal Myers DO 09/26/2024 12:15 PM Signed Please inform patient that her mammogram is normal/negative. She will need routine screening mammogram in 1 year. Thanks RICHI Henderson Susan LPN 09/26/2024 12:23 PM Signed Pt. informed via My Chart. Allergies As of Date: 09/26/2024 Noted Allergy Reaction ADHESIVE TAPE (ROSINS) 03/18/2008 2 - Rash BACITRACIN 03/18/2008 2 - Rash Date Reviewed: 07/09/2024 Reviewed by: Liliana Crandall LPN - Fully Assessed Prescriptions as of 09/26/2024 - benzonatate (TESSALON PERLE) 100 mg capsule Take 2 capsules by mouth three times daily as needed. - Etonogestrel-Ethinyl Estradiol (NUVARING) 0.12-0.015 mg/24 hr vaginal ring Use 1 Each vaginally as directed. Place ring for 24 days, remove for 4 days and repeat - Blood-Glucose Meter misc 1 Each as directed. - blood sugar diagnostic test strip 1 Strip four times daily. Use as instructed - Lancets lancets 1 Each four times daily. Use as instructed - Urine Glucose-Ketones Test (KETO-DIASTIX) strp 1 Strip four times daily. - Blood-Glucose Meter (GLUCOMETER ELITE CLASSIC) monitoring kit 1 Each as needed. USE DIRECTED, 2 TO 6 TIMES A DAY - blood sugar diagnostic (GLUCOSTIX TEST) test strip Check glucose fasting in morning and 2 hours after every meal. - Lancets (FINGERSTIX LANCETS) lancets Check glucose fasting in morning and 2 hours after every meal. - Alcohol Swabs (ALCOHOL WIPES) padm Apply 1 application to affected area as needed. - Breast Pump Device As directed - Zaydertb-Co-Fah-Fe-FA ( VITAMIN) tab Take 1 tablet by mouth. - Etonogestrel-Ethinyl Estradiol (NUVARING) 0.12-0.015 mg/24 hr vaginal ring Insert vaginally and leave in place for 3 consecutive weeks, then remove for 1 week. Indications: CONTRACEPTION - ibuprofen 200 mg tablet Take 1-2 tablets by mouth every 4 hours as needed. FOR PAIN. Problem List As Of Date 09/26/2024 Noted Resolved Spotting in [O26.859] 07/20/2016 01/15/2017 History of depression [Z86.59] 07/20/2016 Advanced maternal age, 1st [O09.519] 07/20/2016 04/10/2017 Abnormal O'Griffith glucose challenge test, ant*12/15/2016 01/15/2017 Gestational diabetes mellitus, class A1 [O24.41*01/03/2017 04/10/2017 History of gestational diabetes mellitus, not p*04/10/2017 Encounter Status:Closed by LILIANA CRANDALL LPN on 09/26/24 Normal [facility] MISTI SCREENING W TOMOon 09-19 MISTI SCREENING W PORSHA * * *Final Report* * * DATE OF EXAM: Sep 19 2024 9:12AM [id number] [id number] - MISTI SCREENING W PORSHA / PROCEDURE REASON: Encounter for screening mammogram for malignant neoplasm of breast * * * * Physician Interpretation * * * * RESULT: [address] [address] [place] [address] #[id number] - MISTI SCREENING W PORSHA HISTORY: Patient is 49 years old and is seen for screening and is asymptomatic in both breasts. Patient states no personal history of breast cancer. Patient states no personal history of other cancers. COMPARISON STUDIES: The present examination has been compared to prior imaging studies dated 07/23/2020 (mammogram) and 09/27/2021 (mammogram). MAMMOGRAM TECHNIQUE: The study was acquired using full field digital technology and interpreted from soft copy. Digital Breast Tomosynthesis (DBT) images were obtained and used to assist in the interpretation of this examination. Computer-aided detection was utilized by the radiologist in the interpretation of this examination. MAMMOGRAM FINDINGS: There are scattered areas of fibroglandular density. No suspicious masses, calcifications or other abnormalities are seen in either breast. There are no significant interval changes. IMPRESSION: There is no mammographic evidence of malignancy in either breast. Routine screening mammogram is recommended. Annual mammogram will be due in 1 year. BI-RADS Category 1: Negative RISK: Based on the Tyrer-Cuzick (TC) risk assessment model, this patient has a 11.9% lifetime risk of developing breast cancer, meaning they are at average risk for developing breast cancer. However, this is only an estimate based on available history provided on the patient's questionnaire. We encourage all patients to talk with their providers about these results, further recommendations for managing breast health, and appropriate supplemental screening options if the patient has dense breast tissue. Interpreting Radiologist: Rahel Shea M.D. Electronically signed on: 09/26/2024 Service Station Cashier: TRACEY Transcribe Date/Time: Sep 19 2024 9:00A Dictated by: RAHEL SHEA MD This examination was interpreted and the report reviewed and electronically signed by: RAHEL SHEA MD on Sep 26 2024 10:06AM EST [id number] Normal [facility] 08-[facility]-2024 [facility] BRYNN CHENG ([id number]) 1975 F Date Time Provider Department 08/06/24 KUNAL MYERS [facility] During your visit today, we recorded the following information about you: Kunal Myers DO 08/06/2024 8:07 PM Signed Please inform patient that her labs are overall normal and stable except for low vitamin d levels. Needs to increase vitamin d by extra [id number] international unit(s) a day with a meal DO Sole Henderson [place], [place] 08/07/2024 1:39 PM Signed Pt informed. Asking if physical form complete? MEREDITH Alcocer Jordan L, DO 08/11/2024 4:25 PM Signed I don't have a form to complete /DO Tracey Henderson Susan LPN 08/11/2024 4:59 PM Signed Form completed. Message left to car pick up driver in Dr. Myers's office. Andrei Cohen, RN 08/12/2024 1:00 PM [facility]igned [facility] also sent Maya Villagomez RN 08/18/2024 8:42 AM Signed Patient calls to ask if physical form can be uploaded to so she can print it from there. Patient reports Dr. Myers was going to email the form to her when it was completed but if it can be uploaded to that is ok as well. DEEJAY Ariza Susan LPN 08/19/2024 10:26 AM Signed Physical form uploaded to My Chart. Allergies As of Date: 08/06/2024 Noted Allergy Reaction ADHESIVE TAPE (ROSINS) 03/18/2008 2 - Rash BACITRACIN 03/18/2008 2 - Rash Date Reviewed: 07/09/2024 Reviewed by: Liliana Crandall LPN - Fully Assessed Reason for Visit: Results [95] Physical form [Other] Prescriptions as of 08/19/2024 - benzonatate (TESSALON PERLE) 100 mg capsule Take 2 capsules by mouth three times daily as needed. - Etonogestrel-Ethinyl Estradiol (NUVARING) 0.12-0.015 mg/24 hr vaginal ring Use 1 Each vaginally as directed. Place ring for 24 days, remove for 4 days and repeat - Blood-Glucose Meter misc 1 Each as directed. - blood sugar diagnostic test strip 1 Strip four times daily. Use as instructed - Lancets lancets 1 Each four times daily. Use as instructed - Urine Glucose-Ketones Test (KETO-DIASTIX) strp 1 Strip four times daily. - Blood-Glucose Meter (GLUCOMETER ELITE CLASSIC) monitoring kit 1 Each as needed. USE DIRECTED, 2 TO 6 TIMES A DAY - blood sugar diagnostic (GLUCOSTIX TEST) test strip Check glucose fasting in morning and 2 hours after every meal. - Lancets (FINGERSTIX LANCETS) lancets Check glucose fasting in morning and 2 hours after every meal. - Alcohol Swabs (ALCOHOL WIPES) padm Apply 1 application to affected area as needed. - Breast Pump Device As directed - Dexlgyoa-Ga-Bgb-Fe-FA ( VITAMIN) tab Take 1 tablet by mouth. - Etonogestrel-Ethinyl Estradiol (NUVARING) 0.12-0.015 mg/24 hr vaginal ring Insert vaginally and leave in place for 3 consecutive weeks, then remove for 1 week. Indications: CONTRACEPTION - ibuprofen 200 mg tablet Take 1-2 tablets by mouth every 4 hours as needed. FOR PAIN. Problem List As Of Date 08/06/2024 Noted Resolved Spotting in [O26.859] 07/20/2016 01/15/2017 History of depression [Z86.59] 07/20/2016 Advanced maternal age, 1st [O09.519] 07/20/2016 04/10/2017 Abnormal O'Griffith glucose challenge test, ant*12/15/2016 01/15/2017 Gestational diabetes mellitus, class A1 [O24.41*01/03/2017 04/10/2017 History of gestational diabetes mellitus, not p*04/10/2017 Encounter Status:Closed by ANDREI COHEN on 08/12/24 Normal [facility] 25(OH)D3 Kira-Barbara 2023 25-hydroxyvitamin D3 [Mass/Vol] 27.9 ng/mL Low 31.0-80.0 [facility] Comment on above: Order Comment: Speci men Type: BLOOD SPECIMENOrdering Facility: [facility] Address: [address] [place] [address] Result Comment: Clas sification of 25 OH Vitamin D status: Deficiency/Insufficiency: < or = 30 ng/ml. Sufficiency/Optimal Levels: 31-80 ng/mL Toxicity: > 100 ng/mL. Test performed by chemiluminescent immunoassay. Performed By: #### 1 989-3 ####[facility] LABIA [id number] [place] [address] [place] CBC W Auto Differential pane l (Bld)on 08-02-2024 Basophils (Bld) [#/Vol] 0.04 10*3/uL Normal <0.11 [facility] Comment on above: Order Comment: Speci men Type: BLOOD SPECIMENOrdering Facility: [facility] Address: [address] [place] [address] Performed By: #### 5 7021-8 ####[facility] [id number] [place] [address] [place] Basophils/100 WBC (Bld) 0.8 % Normal [facility] Comment on above: Order Comment: Speci men Type: BLOOD SPECIMENOrdering Facility: [facility] Address: [address] [place] [address] Performed By: #### 5 7021-8 ####[facility] LABCLIA [id number] [place] [address] [place] Differential cell count method Nom (Bld) Auto Normal [facility] Comment on above: Order Comment: Speci men Type: BLOOD SPECIMENOrdering Facility: [facility] Address: [address] [place] [address] Performed By: #### 5 7021-8 ####[facility] LABCLIA [id number] [place] [address] [place] Eosinophils (Bld) [#/Vol] 0.10 10*3/uL Normal <0.46 [facility] Comment on above: Order Comment: Speci men Type: BLOOD SPECIMENOrdering Facility: [facility] Address: [address] [place] [address] Performed By: #### 5 7021-8 ####[facility] LABCLIA [id number] [place] [address] [place] Eosinophils/100 WBC (Bld) 1.9 % Normal [facility] Comment on above: Order Comment: Speci men Type: BLOOD SPECIMENOrdering Facility: [facility] Address: [address] [place] [address] Performed By: #### 5 7021-8 ####[facility] LABCLIA [id number] [place] [address] [place] Erythrocyte distribution width (RBC) [Ratio] 12.4 % Normal 11.5-15.0 [facility] Comment on above: Order Comment: Speci men Type: BLOOD SPECIMENOrdering Facility: [facility] Address: [address] [place] [address] Performed By: #### 5 7021-8 ####[facility]CLIA [id number] [place] [address] [place] Hematocrit (Bld) [Volume fraction] 39.7 % Normal 36.0-46.0 [facility] Comment on above: Order Comment: Speci men Type: BLOOD SPECIMENOrdering Facility: [facility] Address: [address] [place] [address] Performed By: #### 5 7021-8 ####[facility]CLIA [id number] [place] [address] [place] Hemoglobin (Bld) [Mass/Vol] 12.9 g/dL Normal 11.5-15.5 [facility] Comment on above: Order Comment: Speci men Type: BLOOD SPECIMENOrdering Facility: [facility] Address: [address] [place] [address] Performed By: #### 5 7021-8 ####[facility] LABCLIA [id number] [place] [address] [place] Immature granulocytes (Bld) [#/Vol] 10*3/uL Normal <0.10 [facility] Comment on above: Order Comment: Speci men Type: BLOOD SPECIMENOrdering Facility: [facility] Address: [address] [place] [address] Performed By: #### 5 7021-8 ####[facility]CLIA [id number] [place] [address] [place] Immature granulocytes/100 WBC (Bld) 0.4 % Normal [facility] Comment on above: Order Comment: Speci men Type: BLOOD SPECIMENOrdering Facility: [facility] Address: [address] [place] [address] Performed By: #### 5 7021-8 ####[facility]CLIA [id number] [place] [address] [place] Lymphocytes (Bld) [#/Vol] 1.41 10*3/uL Normal 1.00-4.00 [facility] Comment on above: Order Comment: Speci men Type: BLOOD SPECIMENOrdering Facility: [facility] Address: [address] [place] [address] Performed By: #### 5 7021-8 ####[facility]CLIA [id number] [place] [address] [place] Lymphocytes/100 WBC (Bld) 27.3 % Normal [facility] Comment on above: Order Comment: Speci men Type: BLOOD SPECIMENOrdering Facility: [facility] Address: [address] [place] [address] Performed By: #### 5 7021-8 ####[facility]CLIA [id number] [place] [address] [place] MCH (RBC) [Entitic mass] 29.4 pg Normal 26.0-34.0 [facility] Comment on above: Order Comment: Speci men Type: BLOOD SPECIMENOrdering Facility: [facility] Address: [address] [place] [address] Performed By: #### 5 7021-8 ####[facility]IA [id number] [place] [address] [place] MCHC (RBC) [Mass/Vol] 32.5 g/dL Normal 30.5-36.0 [facility] Comment on above: Order Comment: Speci men Type: BLOOD SPECIMENOrdering Facility: [facility] Address: [address] [place] [address] Performed By: #### 5 7021-8 ####[facility]CLIA [id number] [place] [address] [place] MCV (RBC) [Entitic vol] 90.4 fL Normal 80.0-100.0 [facility] Comment on above: Order Comment: Speci men Type: BLOOD SPECIMENOrdering Facility: [facility] Address: [address] [place] [address] Performed By: #### 5 7021-8 ####[facility]CLIA [id number] [place] [address] [place] Monocytes (Bld) [#/Vol] 0.54 10*3/uL Normal <0.87 [facility] Comment on above: Order Comment: Speci men Type: BLOOD SPECIMENOrdering Facility: [facility] Address: [address] [place] [address] Performed By: #### 5 7021-8 ####[facility]CLIA [id number] [place] [address] [place] Monocytes/100 WBC (Bld) 10.4 % Normal [facility] Comment on above: Order Comment: Speci men Type: BLOOD SPECIMENOrdering Facility: [facility] Address: [address] [place] [address] Performed By: #### 5 7021-8 ####[facility]CLIA [id number] [place] [address] [place] Neutrophils (Bld) [#/Vol] 3.06 10*3/uL Normal 1.45-7.50 [facility] Comment on above: Order Comment: Speci men Type: BLOOD SPECIMENOrdering Facility: [facility] Address: [address] [place] [address] Performed By: #### 5 7021-8 ####[facility]CLIA [id number] [place] [address] [place] Neutrophils/100 WBC (Bld) 59.2 % Normal [facility] Comment on above: Order Comment: Speci men Type: BLOOD SPECIMENOrdering Facility: [facility] Address: [address] [place] [address] Performed By: #### 5 7021-8 ####[facility]CLIA [id number] [place] [address] [place] Nucleated RBC (Bld) [#/Vol] 10*3/uL Normal <0.01 [facility] Comment on above: Order Comment: Speci men Type: BLOOD SPECIMENOrdering Facility: [facility] Address: [address] [place] [address] Performed By: #### 5 7021-8 ####[facility]IA [id number] [place] [address] [place] Nucleated RBC/100 WBC (Bld) [Ratio] 0.0 /100 WBC Normal [facility] Comment on above: Order Comment: Speci men Type: BLOOD SPECIMENOrdering Facility: [facility] Address: [address] [place] [address] Performed By: #### 5 7021-8 ####[facility]IA [id number] [place] [address] [place] Platelet mean volume (Bld) [Entitic vol] 9.8 fL Normal 9.0-12.7 [facility] Comment on above: Order Comment: Speci men Type: BLOOD SPECIMENOrdering Facility: [facility] Address: [address] [place] [address] Performed By: #### 5 7021-8 ####[facility] [id number] [place] [address] [place] Platelets (Bld) [#/Vol] 331 10*3/uL Normal 150-400 [facility] Comment on above: Order Comment: Speci men Type: BLOOD SPECIMENOrdering Facility: [facility] Address: [address] [place] [address] Performed By: #### 5 7021-8 ####[facility]IA [id number] [place] [address] [place] RBC (Bld) [#/Vol] 4.39 10*6/uL Normal 3.90-5.20 [facility] Comment on above: Order Comment: Speci men Type: BLOOD SPECIMENOrdering Facility: [facility] Address: [address] [place] [address] Performed By: #### 5 7021-8 ####[facility] LABCLIA [id number] [address] [address] [place] WBC (Bld) [#/Vol] 5.17 10*3/uL Normal 3.70-11.00 [facility] Comment on above: Order Comment: Speci men Type: BLOOD SPECIMENOrdering Facility: [facility] Address: [address] [place] [address] Performed By: #### 5 7021-8 ####[facility] [id number] [place] [id number] [place] CRP SerPl-nc 08-02-2024 CRP [Mass/Vol] mg/L Normal <0.9 [facility] Comment on above: Order Comment: Speci men Type: BLOOD SPECIMENOrdering Facility: [facility] Address: [address] [place] [address] Performed By: #### 3 016-3, 1987-, 2132-06 ####[facility] [id number] [place] [id number] [place] Comprehensive metabolic 2000 panelon 08-02-2024 Albumin [Mass/Vol] 4.1 g/dL Normal 3.9-4.9 [facility] Comment on above: Order Comment: Speci men Type: BLOOD SPECIMENOrdering Facility: [facility] Address: [address] [place] [address] Performed By: #### 2 4323-8, 3024-7, 55418-5, 3051-0 ####[facility] [id number] [place] [id number] [place] ALP [Catalytic activity/Vol] 58 U/L Normal 34-123 [facility] Comment on above: Order Comment: Speci men Type: BLOOD SPECIMENOrdering Facility: [facility] Address: [address] [place] [address] Performed By: #### 2 4323-8, 3024-7, 74022-1, 3051-0 ####[facility]CLIA [id number] [address] [address] [place] ALT [Catalytic activity/Vol] 19 U/L Normal 7-38 [facility] Comment on above: Order Comment: Speci men Type: BLOOD SPECIMENOrdering Facility: [facility] Address: [address] [place] [address] Performed By: #### 2 4323-8, 3023-7, 07551-7, 3051-0 ####[facility]CLIA [id number] [address] [address] [place] Anion gap [Moles/Vol] 10 mmol/L Normal 8-15 [facility] Comment on above: Order Comment: Speci men Type: BLOOD SPECIMENOrdering Facility: [facility] Address: [address] [place] [address] Performed By: #### 2 4323-8, 302-7, 04511-2, 305-0 ####[facility] [id number] [address] [address] [place] AST [Catalytic activity/Vol] 25 U/L Normal 13-35 [facility] Comment on above: Order Comment: Speci men Type: BLOOD SPECIMENOrdering Facility: [facility] Address: [address] [place] [address] Performed By: #### 2 4323-8, 302-7, 93083-0, 3051-0 ####[facility]CLIA [id number] [address] [address] [place] Bilirubin [Mass/Vol] 0.3 mg/dL Normal 0.2-1.3 [facility] Comment on above: Order Comment: Speci men Type: BLOOD SPECIMENOrdering Facility: [facility] Address: [address] [place], [place] [address] Performed By: #### 2 4323-8, 302-7, 85772-6, 3051-0 ####[facility]CLIA [id number] [address] [address] [place] Calcium [Mass/Vol] 8.9 mg/dL Normal 8.5-10.2 [facility] Comment on above: Order Comment: Speci men Type: BLOOD SPECIMENOrdering Facility: [facility] Address: [address] [place] [address] Performed By: #### 2 4323-8, 302-7, 71695-4, 3050-0 ####[facility]CLIA [id number] [address] [address] [place] Chloride [Moles/Vol] 108 mmol/L High 98-107 [facility] Comment on above: Order Comment: Speci men Type: BLOOD SPECIMENOrdering Facility: [facility] Address: [address] [place] [address] Performed By: #### 2 4323-8, 302-7, 75120-2, 3050-0 ####[facility] [id number] [address] [address] [place] CO2 [Moles/Vol] 22 mmol/L Normal 22-30 [facility] Comment on above: Order Comment: Speci men Type: BLOOD SPECIMENOrdering Facility: [facility] Address: [address] [place] [address] Performed By: #### 2 4323-8, 302-7, 90574-5, 305-0 ####[facility] LABCLIA [id number] [address] [address] [place] Creatinine [Mass/Vol] 0.65 mg/dL Normal 0.58-0.96 [facility] Comment on above: Order Comment: Speci men Type: BLOOD SPECIMENOrdering Facility: [facility] Address: [address] [place] [address] Performed By: #### 2 4323-8, 302-7, 72732-8, 305-0 ####[facility] LABCLIA [id number] [place] [address] [place] Creatinine and Glomerular filtration rate.predicted panel (S/P/Bld) 109 mL/min/1.73m??? Normal >=60 [facility] Comment on above: Order Comment: Dennis chung Type: BLOOD SPECIMENOrdering Facility: [facility] Address: [address] [place] [address] Result Comment: Sanjana mated Glomerular Filtration Rate (eGFR) is calculated using the 2020 CKD-EPI creatinine equation. This equation utilizes serum creatinine, sex, and age as parameters. The creatinine assay has traceable calibration to isotope dilution-mass spectrometry. Refer to KDIGO guidelines for clinical interpretation. In patients with unstable renal function, e.g. those with acute kidney injury, the eGFR may not accurately reflect actual GFR. Performed By: #### 2 4323-8, 3024-7, 48500-4, 305-0 ####[facility] LABIA [id number] [place] [address] [place] Glucose [Mass/Vol] 81 mg/dL Normal 74-99 [facility] Comment on above: Order Comment: Dennis chung Type: BLOOD SPECIMENOrdering Facility: [facility] Address: [address] [place] [address] Result Comment: The [place] Diabetes Association (ADA) provides guidance for cutoff values for fasting glucose and random glucose. The ADA defines fasting as no caloric intake for at least 8 hours. Fasting plasma glucose results between 100 to 125 mg/dL indicate increased risk for diabetes (prediabetes). Fasting plasma glucose results greater than or equal to 126 mg/dL meet the criteria for diagnosis of diabetes. In the absence of unequivocal hyperglycemia, results should be confirmed by repeat testing. In a patient with classic symptoms of hyperglycemia or hyperglycemic crisis, random plasma glucose results greater than or equal to 200 mg/dL meet the criteria for diagnosis of diabetes. Reference: Standards of Medical Care in Diabetes 2016, [place] Diabetes Association. Diabetes Care. 2016.39(Suppl 1). Performed By: #### 2 4323-8, 3024-7, 06850-8, 3051-0 ####[facility] LABCLIA [id number] [address] [address] [place] Potassium [Moles/Vol] 4.3 mmol/L Normal 3.7-5.1 [facility] Comment on above: Order Comment: Speci men Type: BLOOD SPECIMENOrdering Facility: [facility] Address: [address] [place] [address] Performed By: #### 2 4323-8, 302-7, 28844-9, 3050-0 ####[facility] LABIA [id number] [address] [address] [place] Protein [Mass/Vol] 6.9 g/dL Normal 6.3-8.0 [facility] Comment on above: Order Comment: Speci men Type: BLOOD SPECIMENOrdering Facility: [facility] Address: [address] [place] [address] Performed By: #### 2 4323-8, 302-7, 25702-7, 3050-0 ####[facility] [id number] [address] [address] [place] Sodium [Moles/Vol] 140 mmol/L Normal 136-144 [facility] Comment on above: Order Comment: Speci men Type: BLOOD SPECIMENOrdering Facility: [facility] Address: [address] [place] [address] Performed By: #### 2 4323-8, 302-7, 18062-7, 3050-0 ####[facility] LABIA [id number] [address] [address] [place] Urea nitrogen [Mass/Vol] 11 mg/dL Normal 7-21 [facility] Comment on above: Order Comment: Speci men Type: BLOOD SPECIMENOrdering Facility: [facility] Address: [address] [place] [address] Performed By: #### 2 4323-8, 302-7, 68151-6, 305-0 ####[facility] LABCLIA [id number] [address] [place] HbA1c (Bld)on 08-02-2024 Average glucose Estimated from glycated hemoglobin (Bld) [Mass/Vol] 100 mg/dL Normal [facility] Comment on above: Order Comment: Dennis chung Type: BLOOD SPECIMENOrdering Facility: [facility] Address: [address] [place] [address] Result Comment: eAG: (Estimated average glucose) is a calculated value from HgbA1c and is manufacturing sales representative of the average blood glucose level in the last 2-3 month period. Performed By: #### 5 5454-3 ####[facility] LABIA [id number] [address] STATES OF [facility] HbA1c (Bld) [Mass fraction] 5.1 % Normal 4.3-5.6 [facility] Comment on above: Order Comment: Dennis chung Type: BLOOD SPECIMENOrdering Facility: [facility] Address: [address] [place] [address] Result Comment: [place] Diabetes Association guidelines indicate that patients with HgbA1c in the range 5.7-6.4% are at increased risk for development of diabetes, and intervention by lifestyle modification may be beneficial. HgbA1c greater or equal to 6.5% is considered diagnostic of diabetes. Performed By: #### 5 5454-3 ####[facility] LABIA [id number] [place] [address] [place] Lipid 1996 panelon 4 Cholesterol [Mass/Vol] 165 mg/dL Normal <200 [facility] Comment on above: Order Comment: Dennis chung Type: BLOOD SPECIMENOrdering Facility: [facility] Address: [address] [place] [address] Result Comment: <200 mg/dL, Desirable 200-239 mg/dL, Borderline high >239 mg/dL, High Performed By: #### 2 4323-8, 3024-7, 38245-3, 305-0 ####[facility] LABCLIA [id number] [place] [address] [place] Cholesterol in HDL [Mass/Vol] 69 mg/dL Normal >39 [facility] Comment on above: Order Comment: Dennis sheldon Type: BLOOD SPECIMENOrdering Facility: [facility] Address: [address] [place] [address] Result Comment: 40-5 9 mg/dL, Acceptable >59 mg/dL, High: Negative risk factor for coronary heart disease <40 mg/dL, Low: Positive risk factor for coronary heart disease Performed By: #### 2 4323-8, 3024-7, 29933-1, 3051-0 ####[facility] LABCLIA [id number] [address] OF [place] Cholesterol in LDL [Mass/Vol] 83 mg/dL Normal <100 [facility] Comment on above: Order Comment: Dennis chung Type: BLOOD SPECIMENOrdering Facility: [facility] Address: [address] [place] [address] Result Comment: <100 mg/dL, Optimal 100-129 mg/dL, Near optimal/above optimal 130-159 mg/dL, Borderline high 160-189 mg/dL, High >189 mg/dL, Very high Secondary prevention optimal LDL Cholesterol levels are recommended to be < 70 mg/dL Performed By: #### 2 4323-8, 3024-7, 74492-4, 3051-0 ####[facility] LABIA [id number] [address] OF [facility] Cholesterol in LDL/Cholesterol in HDL [Mass ratio] 1.20 {ratio} Normal <2.54 [facility] Comment on above: Order Comment: Casszeeshan chung Type: BLOOD SPECIMENOrdering Facility: [facility] Address: [address] [place] [address] Result Comment: Refe rence: 1. National Cholesterol Education Program ATP III Guideline At-A-Glance Quick Desk Reference: National Heart, Lung, and Blood [place]. National Institutes of Health. 2001: NIH Publication No. 01-3305. 2. An International Atherosclerosis Society position paper: global recommendations for the management of dyslipidemia: executive summary, Atherosclerosis. 2014: 232(2):410-413. Performed By: #### 2 4323-8, 3024-7, 73667-0, 305-0 ####[facility] LABCLIA [id number] [address] [address] [place] Cholesterol in VLDL [Mass/Vol] 13 mg/dL Normal <30 [facility] Comment on above: Order Comment: Speci men Type: BLOOD SPECIMENOrdering Facility: [facility] Address: [address] [place] [address] Performed By: #### 2 4323-8, 3023-7, 21829-7, 3050-0 ####[facility] LABCLIA [id number] [address] [address] [place] Cholesterol non HDL [Mass/Vol] 96 mg/dL Normal <130 [facility] Comment on above: Order Comment: Speci men Type: BLOOD SPECIMENOrdering Facility: [facility] Address: [address] [place] [address] Result Comment: <130 mg/dL, Optimal 130-159 mg/dL, Near optimal/above optimal 160-189 mg/dL, Borderline high 190-219 mg/dL, High >219 mg/dL, Very high Secondary prevention optimal non HDL Cholesterol levels are recommended to be <100 mg/dL Performed By: #### 2 4323-8, 3023-7, 78246-2, 305-0 ####[facility] LABCLIA [id number] [address] [address] [place] Cholesterol.total/C holesterol in HDL [Mass ratio] 2.39 {ratio} Normal <5.10 [facility] Comment on above: Order Comment: Speci men Type: BLOOD SPECIMENOrdering Facility: [facility] Address: [address] [place] [address] Performed By: #### 2 4323-8, 4-7, 20304-0, 305-0 ####[facility] LABCLIA [id number] [address] [address] [place] FASTING TIME 14 hrs Normal [facility] Comment on above: Order Comment: Speci men Type: BLOOD SPECIMENOrdering Facility: [facility] Address: [address] [place] [address] Performed By: #### 2 4323-8, 3024-7, 61303-4, 3051-0 ####[facility] LABCLIA [id number] [place] [address] [place] Triglyceride [Mass/Vol] 67 mg/dL Normal <150 [facility] Comment on above: Order Comment: Speci men Type: BLOOD SPECIMENOrdering Facility: [facility] Address: [address] [place] [address] Result Comment: <150 mg/dL, Normal 150-199 mg/dL, Borderline high 200-499 mg/dL, High >499 mg/dL, Very high Performed By: #### 2 4323-8, 3024-7, 65663-6, 3051-0 ####[facility] LABCLIA [id number] [place] [address] [place] T3Free SerPl-mCncon 08-02-20 24 Free T3 [Mass/Vol] 2.7 pg/mL Normal 2.3-4.1 [facility] Comment on above: Order Comment: Speci men Type: BLOOD SPECIMENOrdering Facility: [facility] Address: [address] [place] [address] Performed By: #### 2 4323-8, 3024-7, 27409-2, 3051-0 ####[facility] LABCLIA [id number] [place] [address] [place] T4 Free SerPl-mCncon 024 Free T4 [Mass/Vol] 1.0 ng/dL Normal 0.9-1.7 [facility] Comment on above: Order Comment: Speci men Type: BLOOD SPECIMENOrdering Facility: [facility] Address: [address] [place] [address] Performed By: #### 2 4323-8, 3024-7, 41553-2, 3051-0 ####[facility] LABCLIA [id number] [place] [address] [place] TSH SerPl-aCncon 08-02-2024 TSH Qn 0.897 m[IU]/L Normal 0.270-4.200 [facility] Comment on above: Order Comment: Speci men Type: BLOOD SPECIMENOrdering Facility: [facility] Address: [address] [place] [address] Result Comment: If t he patient is , TSH reference range varies by gestational period: First Trimester (weeks 9-12): 0.180-2.990 mIU/L Second Trimester: 0.110-3.980 mIU/L Third Trimester: 0.480-4.710 mIU/L Hector Recinos et al. A Practical Approach for the Verifications and Determination of Site- and Trimester-Specific Reference Intervals for Thyroid Function tests in . Thyroid, 2019:29:3:412-420. William E, et al. 2017 Guidelines of the [place] Thyroid Association for the Diagnosis and Management of Thyroid Disease during and the . Thyroid, 2017:27:3:315-389. Performed By: #### 3 016-3, 1987-5, 9 ####[facility] LABCLIA [id number] [place] [id number] [place] Urinalysis complete panel (U )on 08-02-2024 Bacteria LM.HPF (Urine sed) [#/Area] Negative Normal Negative [facility] Comment on above: Order Comment: Speci men Type: URINE SPECIMENOrdering Facility: [facility] Address: [address] [place] [address] Performed By: #### 2 4356-8 ####[facility] LABCLIA [id number] [place] [id number] [place] Bilirubin Ql (U) Negative Normal Negative [facility] Comment on above: Order Comment: Speci men Type: URINE SPECIMENOrdering Facility: [facility] Address: [facility] [place] [address] Performed By: #### 2 4356-8 ####[facility] LABCLIA [id number] [place] [address] [place] Clarity (Unsp spec) Clear Normal Clear [facility] Comment on above: Order Comment: Speci men Type: URINE SPECIMENOrdering Facility: [facility] Address: [address] [place] [address] Performed By: #### 2 4356-8 ####[facility] LABCLIA [id number] [place] [address] [place] Color (U) Yellow Normal Yellow [facility] Comment on above: Order Comment: Speci men Type: URINE SPECIMENOrdering Facility: [facility] Address: [address] [place] [address] Performed By: #### 2 4356-8 ####[facility] LABCLIA [id number] [place] [address] [place] Epithelial cells LM.HPF (Urine sed) [#/Area] Few Normal [facility] Comment on above: Order Comment: Speci men Type: URINE SPECIMENOrdering Facility: [facility] Address: [address] [place] [address] Performed By: #### 2 4356-8 ####[facility] LABCLIA [id number] [place] [address] [place] Glucose Test strip (U) [Mass/Vol] Negative Normal Negative [facility] Comment on above: Order Comment: Speci men Type: URINE SPECIMENOrdering Facility: [facility] Address: [address] [place] [address] Performed By: #### 2 4356-8 ####[facility] LABCLIA [id number] [address] [id number] [address] [place] Hemoglobin Ql (U) Negative Normal Negative [facility] Comment on above: Order Comment: Speci men Type: URINE SPECIMENOrdering Facility: [facility] Address: [address] [place] [address] Performed By: #### 2 4356-8 ####[facility] LABCLIA [id number] [place] [address] [place] Hyaline casts (Urine sed) [#/Area] 1-3 /LPF Abnormal 0 /LPF [facility] Comment on above: Order Comment: Speci men Type: URINE SPECIMENOrdering Facility: [facility] Address: [address] [place] [address] Performed By: #### 2 4356-8 ####[facility] LABCLIA [id number] [place] [address] [place] Ketones Ql (U) Negative Normal Negative [facility] Comment on above: Order Comment: Speci men Type: URINE SPECIMENOrdering Facility: [facility] Address: [address] [place] [address] Performed By: #### 2 4356-8 ####[facility] LABCLIA [id number] [place] [address] [place] Leukocyte esterase Test strip Ql (U) Negative Normal Negative [facility] Comment on above: Order Comment: Speci men Type: URINE SPECIMENOrdering Facility: [facility] Address: [address] [place] [address] Performed By: #### 2 4356-8 ####[facility] LABCLIA [id number] [place] [address] [place] Nitrite Ql (U) Negative Normal Negative [facility] Comment on above: Order Comment: Speci men Type: URINE SPECIMENOrdering Facility: [facility] Address: [address] [place] [address] Performed By: #### 2 4356-8 ####[facility] LABCLIA [id number] [place] [address] [place] pH (U) 7.5 [pH] Normal <8.5 [facility] Comment on above: Order Comment: Speci men Type: URINE SPECIMENOrdering Facility: [facility] Address: [address] [place] [address] Performed By: #### 2 4356-8 ####[facility] LABIA [id number] [place] [address] [place] Protein (U) [Mass/Vol] Negative Normal Negative [facility] Comment on above: Order Comment: Speci men Type: URINE SPECIMENOrdering Facility: [facility] Address: [address] [place] [address] Performed By: #### 2 4356-8 ####[facility] [id number] [place] [address] [place] RBC LM.HPF (Urine sed) [#/Area] 0-2 /HPF Normal 0-2 /HPF [facility] Comment on above: Order Comment: Speci men Type: URINE SPECIMENOrdering Facility: [facility] Address: [address] [place] [address] Performed By: #### 2 4356-8 ####[facility] [id number] [place] [address] [place] Specific gravity (U) [Rel density] 1.022 Normal 1.005-1.030 [facility] Comment on above: Order Comment: Speci men Type: URINE SPECIMENOrdering Facility: [facility] Address: [address] [place] [address] Performed By: #### 2 4356-8 ####[facility] LABIA [id number] [place] [address] [place] Urobilinogen Ql (U) 0.2 EU/dL Normal 0.2-1.0 EU/dL [facility] Comment on above: Order Comment: Speci men Type: URINE SPECIMENOrdering Facility: [facility] Address: [address] [place] [address] Performed By: #### 2 4356-8 ####[facility] LABIA [id number] [place] [address] [place] WBC LM.HPF (Urine sed) [#/Area] 0-5 /HPF Normal 0-5 /HPF [facility] Comment on above: Order Comment: Speci men Type: URINE SPECIMENOrdering Facility: [facility] Address: [address] [place] [address] Performed By: #### 2 4356-8 ####[facility] LABIA [id number] [place] [address] [place] Vit B12 [facility] 08-02- 024 Cobalamin (Vitamin B12) [Mass/Vol] 501 pg/mL Normal 232-1245 [facility] Comment on above: Order Comment: Speci men Type: BLOOD SPECIMENOrdering Facility: [facility] Address: [address] [place] [address] Performed By: #### 3 016-3, 1988-01, 2132-06 ####[facility] [id number] [place] [address] [place] CNOVon 07-09-2024 CNOV Office Visit (FAMPWS ) -------- BRYNN CHENG ([id number]) 1975 F Date Time Provider Department 07/09/24 4:00 PM KUNAL MYERS FAMPWS During your visit today, we recorded the following information about you: Temperature Pulse Respiration Blood pressure 97.5 degrees 64/minute 16/minute 122/82 Weight Height Last Period 71.7 kg 1.62 m 05/12/24 Kunal Myers DO 07/09/2024 4:52 PM Signed CC: Brynn Cheng is a 49 year old female who presents to the office for physical HPI: Overall healthy, just recently went through a divorce about 4 years ago. Has a 7 year old and 4 year old daughter. 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 Yoga PAST MEDICAL HISTORY Diagnosis Date Anemia depression and anxiety Gestational diabetes mellitus, class A1 01/03/2017 PMH - PAST MEDICAL HISTORY OF BASAL CELL CARCINOMA PAST SURGICAL HISTORY Procedure Laterality Date EXTRACTION, ERUPTED TOOTH OR EXPOSED ROOT (ELEVATION AND/OR FORCEPS REMOVAL) 07/2014 and was in hospital to get abcess removed from infection after PAST SURGICAL HISTORY OF BASAL CELL REMOVED FROM RIGHT PRESYBETERIAN -2 PAST SURGICAL HISTORY OF DEVIATED SEPTUM TONSILLECTOMY PRIMARY/SECONDARY Tonsillectomy Social History: Social History Tobacco Use Smoking status: Never Smokeless tobacco: Never Substance Use Topics Alcohol use: No Drug use: No FAMILY HISTORY Problem Relation Age of Onset Lipids Father Hypertension Father Diabetes Father Lipids Maternal Grandmother Diabetes Maternal Grandfather Heart Paternal Grandfather Hypertension Paternal Grandfather Lipids Maternal Aunt Current Outpatient prescriptions: benzonatate (TESSALON PERLE) 100 mg capsule Take 2 capsules by mouth three times daily as needed. Etonogestrel-Ethinyl Estradiol (NUVARING) 0.12-0.015 mg/24 hr vaginal ring Use 1 Each vaginally as directed. Place ring for 24 days, remove for 4 days and repeat (Patient not taking: Reported on 11/04/2019 ) Blood-Glucose Meter misc 1 Each as directed. (Patient not taking: Reported on 11/04/2019 ) blood sugar diagnostic test strip 1 Strip four times daily. Use as instructed (Patient not taking: Reported on 11/04/2019 ) Lancets lancets 1 Each four times daily. Use as instructed (Patient not taking: Reported on 01/05/2022 ) Urine Glucose-Ketones Test (KETO-DIASTIX) strp 1 Strip four times daily. (Patient not taking: Reported on 01/05/2022 ) Blood-Glucose Meter (GLUCOMETER ELITE CLASSIC) monitoring kit 1 Each as needed. USE DIRECTED, 2 TO 6 TIMES A DAY (Patient not taking: Reported on 11/04/2019 ) blood sugar diagnostic (GLUCOSTIX TEST) test strip Check glucose fasting in morning and 2 hours after every meal. (Patient not taking: Reported on 11/04/2019 ) Lancets (FINGERSTIX LANCETS) lancets Check glucose fasting in morning and 2 hours after every meal. (Patient not taking: Reported on 01/05/2022 ) Alcohol Swabs (ALCOHOL WIPES) padm Apply 1 application to affected area as needed. (Patient not taking: Reported on 11/04/2019 ) Breast Pump Device As directed (Patient not taking: Reported on 11/04/2019 ) Ymvdjjfm-Go-Uah-Fe-FA ( VITAMIN) tab Take 1 tablet by mouth. (Patient not taking: Reported on 01/05/2022 ) Etonogestrel-Ethinyl Estradiol (NUVARING) 0.12-0.015 mg/24 hr vaginal ring Insert vaginally and leave in place for 3 consecutive weeks, then remove for 1 week. Indications: CONTRACEPTION (Patient not taking: Reported on 11/04/2019 ) ibuprofen 200 mg tablet Take 1-2 tablets by mouth every 4 hours as needed. FOR PAIN. (Patient not taking: Reported on 11/04/2019 ) Allergies: ALLERGIES Allergen Reactions Adhesive Tape (Thais* Rash Bacitracin Rash ROS: See HIP PE: 07/09/24 1600 BP: 122/82 Pulse: 64 Resp: 16 Temp: 36.4 ?C (97.5 ?F) TempSrc: Left Tympanic Weight: 71.7 kg (158 lb) Height: 162 cm (5' 3.78) Gen: AANDO, NAD, non-toxic appearing, Pleasant, cooperative HEENT: NT/AC, PERRLA, EOMs intact b/l, nares clear and patent b/l, pharynx without erythema, exudate or lesions. Uvula midline. EACs without erythema or debris. TMs pearly cantu with intact landmarks b/l. Neck: supple, No cervical LAD, no thyromegaly, no carotid bruits CV: RRR, normal S1 and S2, no murmurs, no gallops, no rubs, Pulses 2+ and symmetric in UE and LE b/l Lungs: normal respiratory effort, CTA b/l, no wheezing or rhonchi or rales Abd: soft, NT, ND, +BS, no hepatosplenomegaly MS: FROM all 4 extremities Neuro: CN II-XII intact b/l, strength 5/5 b/l UE and LE, DTRs 2/4 UE and LE, sensation intact. Skin: warm, dry, intact, No rashes or lesions on exposed skin. No edema, normal pulses ASSESSMENT/PLAN: 1. Well adult exam - ICD9: V70.0, ICD10: Z00.00 (primary diagnosis) - Counseled on healthy diet and regular exercise - COMPREHENSIVE METABOLIC PANEL - THYROID STIMULATI (more content not included)... Normal [facility] SCRN MAMM (CAD)W/PORSHA BILATo n 09-27-2021 SCRN MAMM (CAD)W/PORSHA BILAT [facility] Services [address] [place] [address] SCRN MAMM (CAD)W/PORSHA BILAT MR#: [id number] Acct: [id number] Name: BRYNN CHENG Rep #: [id number] : 1975 F 46 From: Dean Elena MD PCP: Care Physician,No Primary Status: REG CLI Study: SCRN MAMM (CAD)W/PORSHA BILAT Date of Exam: 09/01 05/21 Exam# [id number] Ordering Dr: Jade Heard MD MAMMOGRAPHY - BILATERAL SCREENING 3-D TOMOSYNTHESIS REASON FOR EXAM: Female, 46 years old. screening mammogram PERTINENT HISTORY: No significant family history. TECHNIQUE: 2-D mammograms and 3-D Tomosynthesis of the breast (s) were performed. CAD was performed. COMPARISON: 07/23/2020 FINDINGS: The breast composition is heterogeneously dense that can obscure small breast masses. Scattered benign calcifications are seen. No dense spiculated masses or suspicious microcalcifications are identified. No architectural distortion is identified. There is no skin thickening or retraction. There has been no significant change since the prior study. BI/SCRN MAMM (CAD)W/PORSHA BILAT IMPRESSION: No mammographic signs of malignancy. Routine yearly mammograms recommended. ASSESSMENT CATEGORY: BIRADS Category 1: Negative. A letter regarding these results will be sent to the patient by the facility within 30 days. FOLLOW UP RECOMMENDATION: Yearly follow up mammogram recommended. (A) Approximately 10% of breast cancers are not detected by mammography. A normal mammogram should not delay biopsy of a clinically suspicious abnormality. Electronically Signed: Dean Elena MD at 16:36 EST Tel , Service support , CC: Dr. Jade Heard MD; No Primary Care Physician Service Station Cashier: Signed Normal [facility] Hotel Assistant General Manager Office Visit Reporton 05-26-2021 Hotel Assistant General Manager Office Visit Report [facility] [address] [place], [place] [address] OFFICE VISIT Date of Service: 05/26/21 MR#: [id number] Acct: [id number] Name: BRYNN CHENG Rep #: [id number] : 1975 Provider: Dr. 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 Required: No Is patient in pain?: No Allergies adhesive Allergy (Verified 05/26/21 15:47) Rash latex Allergy (Verified 05/26/21 15:47) Rash Medications vit,[id number] 1 tab PO DAILY 02/25/17 [History Confirmed 05/26/21] segesterone acet 0.15 mg-ethinyl estradiol 0.013 mg/24 hr vaginal ring 1 vag ring VAGINAL Q4W #1 ea 07/21/20 [Rx Confirmed 05/26/21] Post menopausal: No Patient : No PFSH Medical History Anemia Anxiety with depression Basal cell carcinoma of skin Surgical History H/O dilation and curettage History of oral surgery History of tonsillectomy Family History Mother Hyperlipidemia Father Diabetes Hyperlipidemia Hypertension Social History (Updated 05/26/21 @ 15:48 by Deja Nassar) Smoking Status: Never smoker alcohol intake: never substance use type: does not use caffeine: No what type of physical activity do you participate in: walking seatbelt use: always do you feel safe at home: Yes additional social history: 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 Date Name GA/Weeks Outcome Route Bth Weight Infant Gen Labor Lgth Anesthesia Del Locatn Provider FOB Unknown 2016 July live - full term Female [facility] Va ndeveld 04/08/20 Hitesh 40 live - full term Female 7-8 hours none [facility] S EM HPI Encounter for routine gynecological examination: Details: BRYNN CHENG is a 46 year old who presents for annual exam. Started using the anovera ring at the end of July. Reports initially did well using continuously. Over the last few months, started noticing heavy breakthrough bleeding. Not currently sexually active since divorce in August. No concern for STI exposure. No new sexual partners. Notices frequent urination and stress incontinence but does not interfere with daily life. Currently a single mother to her 2 daughters (ages 1 and 4). Enjoying re-discovering herself and trying to be a good role model to her daughters. Enjoys her morning exercise routine. Last PAP: 2019 History of abnormal PAP: denies Last mammogram: 2019 History of abnormal mammogram: denies Other preventative health care screenings: breast cancer - paternal great grandmother, maternal aunt x2 Details: BRYNN CHENG is a 46 year old who presents for annual exam. Last PAP: [] History of abnormal PAP: [] Last mammogram: [] History of abnormal mammogram: [] Colon cancer screening: [] Other preventative health care screenings: [] Female Reproductive History Cycle Length: 21-35 Control Method: annovera Questions: metorrhagia: No and sexually active: No Menopausal Symptoms: No hot flashes, No night sweats, No weight change, No mood changes and No difficulty concentrating ROS Const Constitutional: Denies night sweats GI GI: Denies change in bowel habits, constipation or fecal incontinence : Denies hot flashes or nipple discharge Skin Skin/Breast: Denies breast mass, breast pain, breast skin changes or nipple discharge Psych Psych: Denies difficulty concentrating Exam Const General: cooperative, healthy appearing, comfortable, no acute distress, well developed and well groomed Nutritional Appearance: average body habitus and well nourished Orientation: alert, awake and oriented x3 HENMT Head: normal to inspection, normocephalic and atraumatic Eyes Pupils: PERRL EOM: EOM intact bilaterally Neck Neck: normal visual inspection Neck mass: No Thyroid: thyroid normal, symmetrical, not diffusely enlarged, not firm, no masses and nontender Lymphatic: no lymphadenopathy noted Chest Chest palpation inspection: normal inspection of the chest Breast inspection: normal inspection of the breasts and normal inspection of the axillae Breast palpation: normal palpation of the breasts, normal palpation of the axillae and no axillary lymphadenopathy Resp Effort Inspection: normal respiratory effort, able to sp (more content not included)... [facility] Progress Noteon 01-27-2020 Personnel Arbitrator Authentication Interface Message Text Met with patient. 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 Consent to share information with [facility] team, OB and handkerchief presser signed. Pt plans to deliver at [place] with Dr Tovar. Cnc Set Up Operator is Dr Catalan ([facility]). female fetus- name is not yet decided Method of feeding: breast Ultrasound findings today: See report in procedures for details. Reinforced continued OB care with Dr Tovar Pt has not had baseline mammogram. Reinforced monthly breast exams regardless of Normal [facility] Personnel Arbitrator Authentication Interface Message Text The total patient time of the visit was 30 minutes, of which greater than 50% of the time was spent counseling and coordinating care. Normal [facility] Progress Noteon 01-21-2020 Personnel Arbitrator Authentication Interface Message Text Dating for upcoming consult Normal [facility] Vital Signs Date Time Vital Sign Value Performing Clinician Astrid braga 04-13-2025 15:03-0400 Diastolic blood pressure 78 mm[Hg] Krista Haagen FAMILY READINESS SUPPORT ASSISTANT.QUALITY CONTROL TECH RAW [employer]ERIALS Work Phone: [facility] 04-13-2025 15:03-0400 Heart rate 80 /min Krista Haagen FAMILY READINESS SUPPORT ASSISTANT.QUALITY CONTROL TECH [employer] Work Phone: [facility] 04-13-2025 15:03-0400 Respiratory rate 16 /min Krista Haagen FAMILY READINESS SUPPORT ASSISTANT.QUALITY CONTROL TECH [employer] Work Phone: [facility] 04-13-2025 15:03-0400 SaO2% (BldA) [Mass fraction] 99 % Krista Haagen FAMILY READINESS SUPPORT ASSISTANT.QUALITY CONTROL TECH [employer] Work Phone: [facility] 04-13-2025 15:03-0400 Systolic blood pressure 116 mm[Hg] Krista Haagen FAMILY READINESS SUPPORT ASSISTANT.QUALITY CONTROL TECH [employer] Work Phone: [facility] 03-13-2025 13:31-0400 Diastolic blood pressure 82 mm[Hg] Krista Haagen FAMILY READINESS SUPPORT ASSISTANT.QUALITY CONTROL TECH [employer] Work Phone: [facility] 03-13-2025 13:31-0400 Heart rate 63 /min Krista Haagen FAMILY READINESS SUPPORT ASSISTANT.QUALITY CONTROL TECH [employer]S Work Phone: [facility] 03-13-2025 13:31-0400 Respiratory rate 16 /min Krista Haagen FAMILY READINESS SUPPORT ASSISTANT.QUALITY CONTROL TECH [employer] Work Phone: [facility] 03-13-2025 13:31-0400 SaO2% (BldA) [Mass fraction] 100 % Krista Haagen FAMILY READINESS SUPPORT ASSISTANT.QUALITY CONTROL TECH [employer] Work Phone: [facility] 03-13-2025 13:31-0400 Systolic blood pressure 124 mm[Hg] Krista Haagen FAMILY READINESS SUPPORT ASSISTANT.QUALITY CONTROL TECH [employer] Work Phone: [facility] 11-13-2024 14:34-0500 Body mass index (BMI) [Ratio] 31.28 kg/m2 Natacha Knoble FAMILY READINESS SUPPORT ASSISTANT.QUALITY CONTROL TECH [employer] Work Phone: [facility] 11-13-2024 14:34-0500 Body temperature 98.49 [degF] Natacha Castro APRN.QUALITY CONTROL TECH [employer] Work Phone: [facility] 11-13-2024 14:34-0500 Body weight 82.1 kg Natacha Castro APRN.QUALITY CONTROL TECH [employer] Work Phone: [facility] 11-13-2024 14:34-0500 Diastolic blood pressure 78 mm[Hg] Natacha Castro APRN.QUALITY CONTROL TECH [employer] Work Phone: [facility] 11-13-2024 14:34-0500 Heart rate 74 /min Natacha Castro APRN.QUALITY CONTROL TECH [employer] Work Phone: [facility] 11-13-2024 14:34-0500 SaO2% (BldA) [Mass fraction] 100 % Natacha Castro APRN.QUALITY CONTROL TECH [employer] Work Phone: [facility] 11-13-2024 14:34-0500 Systolic blood pressure 114 mm[Hg] Natacha Castro APRN.QUALITY CONTROL TECH [employer] Work Phone: [facility] 07-09-2024 16:00-0400 Body height 162 cm Kunal Myers DO Work Phone: [facility] 07-09-2024 16:00-0400 Body mass index (BMI) [Ratio] 27.31 kg/m2 Kunal Myers DO Work Phone: [facility] 07-09-2024 16:00-0400 Body temperature 97.5 [degF] Kunal Myers DO Work Phone: [facility] 07-09-2024 16:00-0400 Body weight 71.67 kg Kunal Myers DO Work Phone: [facility] 07-09-2024 16:00-0400 Diastolic blood pressure 82 mm[Hg] Kunal Myers DO Work Phone: [facility] 07-09-2024 16:00-0400 Heart rate 64 /min Kunal Myers DO Work Phone: [facility] 07-09-2024 16:00-0400 Respiratory rate 16 /min Kunal Myers DO Work Phone: [facility] 07-09-2024 16:00-0400 Systolic blood pressure 122 mm[Hg] Kunal Myers DO Work Phone: [facility] 11-03-2022 11:27-0500 Body temperature 98.8 [degF] Amada Praisler-Wood FAMILY READINESS SUPPORT ASSISTANT.QUALITY CONTROL TECH RAW MAT[employer]S Work Phone: [facility] 11-03-2022 11:27-0500 Body weight 71.4 kg Amada Praisler-Wood FAMILY READINESS SUPPORT ASSISTANT.QUALITY CONTROL TECH RAW MAT[employer]S Work Phone: [facility] 11-03-2022 11:27-0500 Diastolic blood pressure 78 mm[Hg] Amada Praisler-Wood FAMILY READINESS SUPPORT ASSISTANT.QUALITY CONTROL TECH [employer]S Work Phone: [facility] 11-03-2022 11:27-0500 Heart rate 58 /min Amada Praisler-Wood FAMILY READINESS SUPPORT ASSISTANT.QUALITY CONTROL TECH RAW MAT[employer]S Work Phone: [facility] 11-03-2022 11:27-0500 Respiratory rate 18 /min Amada Praisler-Wood FAMILY READINESS SUPPORT ASSISTANT.QUALITY CONTROL TECH RAW MAT[employer]S Work Phone: [facility] 11-03-2022 11:27-0500 SaO2% (BldA) [Mass fraction] 100 % Amada Praisler-Wood FAMILY READINESS SUPPORT ASSISTANT.QUALITY CONTROL TECH RAW MATERIALS Work Phone: [facility] 11-03-2022 11:27-0500 Systolic blood pressure 124 mm[Hg] Amada Praisler-Wood FAMILY READINESS SUPPORT ASSISTANT.QUALITY CONTROL TECH RAW MATERIALS Work Phone: [facility] 01-05-2022 15:50-0400 Body temperature 97.81 [degF] Abdiel Lora FAMILY READINESS SUPPORT ASSISTANT.QUALITY CONTROL TECH [employer] MAT[employer]S Work Phone: [facility] 01-05-2022 15:50-0400 Body weight 75.48 kg Abdiel Lora FAMILY READINESS SUPPORT ASSISTANT.QUALITY CONTROL TECH [employer] MAT[employer]S Work Phone: [facility] 01-05-2022 15:50-0400 Diastolic blood pressure 86 mm[Hg] Abdiel Lora FAMILY READINESS SUPPORT ASSISTANT.QUALITY CONTROL TECH RAW MAT[employer]S Work Phone: [facility] 01-05-2022 15:50-0400 Heart rate 70 /min Abdiel Lora FAMILY READINESS SUPPORT ASSISTANT.QUALITY CONTROL TECH RAW MAT[employer]S Work Phone: [facility] 01-05-2022 15:50-0400 Respiratory rate 21 /min Abdiel Lora FAMILY READINESS SUPPORT ASSISTANT.QUALITY CONTROL TECH RAW MATERIALS Work Phone: [facility] 01-05-2022 15:50-0400 SaO2% (BldA) [Mass fraction] 99 % Abdiel Lora FAMILY READINESS SUPPORT ASSISTANT.QUALITY CONTROL TECH RAW MAT[employer]S Work Phone: [facility] 01-05-2022 15:50-0400 Systolic blood pressure 136 mm[Hg] Abdiel Lora FAMILY READINESS SUPPORT ASSISTANT.QUALITY CONTROL TECH [employer] MAT[employer]S Work Phone: [facility] Encounters Encounter Date Encounter Type Care Provider Facility Start: 04-13-2025 End: 04-13-2025 Office outpatient visit 25 minutes Krista Slaughter FAMILY READINESS SUPPORT ASSISTANT.QUALITY CONTROL TECH RAW MATERIALS Work Phone: [facility] Comment on above: Adjustment disorder with mixed anxiety and depressed mood Start: 04-13-2025 End: 04-13-2025 ambulatory [facility]RISTIAN Facility:[facility] Start: 03-16-2025 End: 03-16-2025 Telephone encounter Kunal Myers DO Work Phone: [facility] [place] Comment on above: Medication Problem Start: 03-13-2025 End: 03-13-2025 Office outpatient visit 25 minutes Krista Slaughter APRN.QUALITY CONTROL TECH RAW MAT[employer]S Work Phone: [facility] Comment on above: Moderate episode of recurrent major depressive disorder (HCC) (Primary Dx) Start: 03-13-2025 End: 03-13-2025 ambulatory Kunal Myers DO Work Phone: [facility] [place] Comment on above: Depression Start: 11-13-2024 End: 11-13-2024 Patient encounter procedure Natacha Castro FAMILY READINESS SUPPORT ASSISTANT.QUALITY CONTROL TECH RAW MATERIALS Work Phone: [facility] Comment on above: Sore throat (Primary Dx) Start: 11-13-2024 End: 11-13-2024 ambulatory NATACHA CASTRO Facility:[facility] Start: 09-26-2024 End: 09-26-2024 Telephone encounter Kunal Myers DO Work Phone: [facility] Start: 09-19-2024 End: 09-19-2024 ambulatory KUNAL MYERS Facility:[facility] Start: 09-19-2024 End: 09-19-2024 Subsequent hospital visit by physician Screen Mammo [facility] Comment on above: Encounter for screen ing mammogram for malignant neoplasm of breast [Z12.31] Start: 08-19-2024 End: 08-19-2024 ambulatory Kunal Myers DO Work Phone: [facility] Comment on above: Biometric form Start: 08-19-2024 End: 08-19-2024 E-mail encounter from caregiver Kunal Myers DO Work Phone: [facility] Start: 08-06-2024 End: 08-12-2024 Telephone encounter Kunal Myers DO Work Phone: [facility] Comment on above: Results; Physical fo rm Start: 08-02-2024 End: 08-02-2024 ambulatory KUNAL MYERS Facility:[facility] Start: 07-09-2024 End: 07-09-2024 Patient encounter procedure Kunal Myers DO Work Phone: [facility] Comment on above: Well adult exam (Tianna kyra Dx); Encounter for screening mammogram for malignant neoplasm of breast Start: 07-09-2024 End: 07-09-2024 Patient encounter status Kunal Myers DO Work Phone: [facility] Start: 07-09-2024 End: 07-09-2024 ambulatory KUNAL MYERS Facility:[facility] Start: 07-09-2024 Encounter for genera l adult medical examination without abnormal findings KUNAL Grisel [facility] Start: 11-27-2022 Telephone encounter Kunal gracia DO Work Phone: [facility] Comment on above: Patient Question Start: 11-03-2022 End: 02-03-2023 Patient encounter procedure Amada GuajardoWood FAMILY READINESS SUPPORT ASSISTANT.ELTON Work Phone: [facility] Comment on above: Bacterial sinusitis (Primary Dx) Start: 01-05-2022 End: 01-05-2022 Patient encounter procedure Abdiel Lora SHIKHA Work Phone: [facility] Comment on above: Sinobronchitis (Prim pawel Dx) Procedures Date Procedure Procedure Detail Performing Clinician Start: 11-13-2024 STREP A MOLECULAR (POC) Natacha Castro APRN.QUALITY CONTROL TECH RAW MATERIALS Work Phone: Start: 08-02-2024 Lipid 1996 panel - S ever or Plasma Kunal Myers DO Work Phone: Plan of Treatment Date Care Activity Detail Author Start: 08-02-2029 Lipid panel Lipid Screening [facility] Start: 08-02-2027 Diabetes Screening Diabetes Screenin g [facility] Start: 12-14-2026 Urine microalbumin profile [facility] Start: 09-19-2025 Screening for malign ant neoplasm of breast Mammogram Screening [facility] Start: 07-10-2025 End: 07-10-2025 Patient encounter procedure 07/10/2025 3:00 PM EDT Office Visit [facility] [address] [place], [place] [id number] Kunal Myers DO [address] [place] [address] Annual [facility] [place] Comment on above: Annual Start: 07-09-2025 Covid-19 Vaccine ( season) Covid-19 Vaccine ( season) [facility] Comment on above: Postponed from 06/01 (Declined at this time) Start: 06-01-2025 Influenza vaccination [facility] Start: 05-15-2025 Screening for malign ant neoplasm of cervix Cervical Cancer Screening [facility] Start: 04-13-2025 End: 04-13-2025 Patient encounter procedure 04/13/2025 11:00 AM EDT Office Visit [facility] [place] [address] [place], [place] [id number] Krista Slaughter APRN.QUALITY CONTROL TECH [employer]ERIALS [address] [facility] [place] [address] 1 month follow up [facility] Comment on above: 1 month follow up Start: 03-30-2025 Influenza vaccination Influenza Vacc ine (#1) [facility] Comment on above: Postponed from 06/01 (Declined at this time) Start: 07-09-2024 End: 10-08-2024 25-hydroxyvitamin D3 [Mass/volume] in Serum or Plasma VITAMIN D 25 HYDROXY Lab Routine Well adult exam Expected: 07/09/2024, Expires: 10/08/2024 [facility] Comment on above: Expected: 07/09/2024 , Expires: 10/08/2024 Start: 07-09-2024 End: 10-08-2024 C reactive protein [Mass/volume] in Serum or Plasma C-REACTIVE PROTEIN Lab Routine Well adult exam Expected: 07/09/2024, Expires: 10/08/2024 [facility] Comment on above: Expected: 07/09/2024 , Expires: 10/08/2024 Start: 07-09-2024 End: 10-08-2024 CBC W Auto Differential panel - Blood COMPLETE BLOOD COUNT AND DIFFERENTIAL Lab Routine Well adult exam Expected: 07/09/2024, Expires: 10/08/2024 [facility] Comment on above: Expected: 07/09/2024 , Expires: 10/08/2024 Start: 07-09-2024 End: 10-08-2024 Cobalamin (Vitamin B12) [Mass/volume] in Serum or Plasma VITAMIN B12 Lab Routine Well adult exam Expected: 07/09/2024, Expires: 10/08/2024 [facility] Comment on above: Expected: 07/09/2024 , Expires: 10/08/2024 Start: 07-09-2024 End: 10-08-2024 Comprehensive metabolic 2000 panel - Serum or Plasma COMPREHENSIVE METABOLIC PANEL Lab Routine Well adult exam Expected: 07/09/2024, Expires: 10/08/2024 [facility] Comment on above: Expected: 07/09/2024 , Expires: 10/08/2024 Start: 07-09-2024 End: 10-08-2024 Hemoglobin A1c in Blood HEMOGLOBIN A1C Lab Routine Well adult exam Expected: 07/09/2024, Expires: 10/08/2024 [facility] Comment on above: Expected: 07/09/2024 , Expires: 10/08/2024 Start: 07-09-2024 End: 10-08-2024 Lipid 1996 panel - Serum or Plasma LIPID PANEL BASIC Lab Routine Well adult exam Expected: 07/09/2024, Expires: 10/08/2024 [facility] Comment on above: Expected: 07/09/2024 , Expires: 10/08/2024 Start: 07-09-2024 End: 10-08-2024 Thyrotropin [Units/volume] in Serum or Plasma THYROID STIMULATING HORMONE Lab Routine Well adult exam Expected: 07/09/2024, Expires: 10/08/2024 [facility] Comment on above: Expected: 07/09/2024 , Expires: 10/08/2024 Start: 07-09-2024 End: 10-08-2024 Thyroxine (T4) free [Mass/volume] in Serum or Plasma T4 FREE/FREE THYROXINE Lab Routine Well adult exam Expected: 07/09/2024, Expires: 10/08/2024 [facility] Comment on above: Expected: 07/09/2024 , Expires: 10/08/2024 Start: 07-09-2024 End: 10-08-2024 Triiodothyronine (T3) Free [Mass/volume] in Serum or Plasma T3, FREE Lab Routine Well adult exam Expected: 07/09/2024, Expires: 10/08/2024 [facility] Comment on above: Expected: 07/09/2024 , Expires: 10/08/2024 Start: 07-09-2024 End: 10-08-2024 Urinalysis complete panel - Urine URINALYSIS, WITH MICROSCOPIC Lab Routine Well adult exam Expected: 07/09/2024, Expires: 10/08/2024 [facility] Comment on above: Expected: 07/09/2024 , Expires: 10/08/2024 Start: 10-01-2022 DEPRESSION ASSESSMENT DEPRESSION ASS ESSMENT [facility] Start: 06-01-2022 Influenza vaccination [facility] Start: 2022 COLOGUARD (FIT-DNA) COLOGUARD (FIT-D NA) [facility] Start: 2022 Colonoscopy COLONOSCOPY [facility] Start: 2022 COLORECTAL CANCER SCREENING COLORECTAL CANCER SCREENING [facility] Start: [address] COLONOGRAPHY [facility] Start: 2022 DIABETES SCREEN DIABETES SCREEN [facility] Start: 2022 Diabetes Screening Diabetes Screenin g [facility] Start: 2022 FECAL OCCULT BLOOD FECAL OCCULT BLOO D [facility] Start: 2022 Lipid panel Lipid Screening [facility] Start: 2022 LIPID SCREEN LIPID SCREEN [facility] Start: 2022 Screening for malign ant neoplasm of colon [facility] Start: 2022 SIGMOIDOSCOPY SIGMOIDOSCOPY [facility] Start: 05-12-2021 COVID-19 VACCINE (3 - Booster for Pfizer series) COVID-19 VACCINE (3 - Booster for Pfizer series) [facility] Start: 02-04-2021 COVID-19 VACCINE (3 - Booster for Pfizer series) COVID-19 VACCINE (3 - Booster for Pfizer series) [facility] Start: 11-28-2020 HPV TESTING HPV TESTING [facility] Start: 11-28-2020 PAP TESTING PAP TESTING [facility] Start: 2017 Mammography MAMMOGRAM [facility] Start: 2017 Screening for malign ant neoplasm of breast Mammogram Screening [facility] Start: 02-25-1996 Hepatitis B Vaccine (1 of 3 - 19+ 3-dose series) Hepatitis B Vaccine (1 of 3 - 19+ 3-dose series) [facility] Start: 1995 Anxiety Screening Anxiety Screening [facility] Start: 1995 Depression Screening Depression Scre ening [facility] Start: 1995 HEPATITIS C SCREENING HEPATITIS C [facility] Start: 1995 Hepatitis C screening Hepatitis C [facility] Start: 1989 Adult depression scr eening assessment DEPRESSION SCREENING [facility] Start: 1977 HEPATITIS B (1 of 3 - 3-dose series) HEPATITIS B (1 of 3 - 3-dose series) [facility] End: 08-08-2025 DBT Breast - bilateral screening [facility] SCREENING [facility] Routine Encounter for screening mammogram for malignant neoplasm of breast 1 Occurrences starting 07/09/2024 until 08/08/2025 [facility] Work Phone: Comment on above: 1 Occurrences starti ng 07/09/2024 until 08/08/2025 DBT Breast - bilater al screening [facility] SCREENING [facility] Radiology Routine Encounter for screening mammogram for malignant neoplasm of breast 09/19/2024 9:13 AM EST [facility] Work Phone: Immunizations Immunization Date Immunization Notes Care Provider Luis dalal 12-14-2016 tetanus toxoid, redu lino diphtheria toxoid, and acellular pertussis vaccine, adsorbed Abdiel Guido FAMILY READINESS SUPPORT ASSISTANT.QUALITY CONTROL TECH RAW MATERIALS Work Phone: [facility] 07-20-2016 influenza virus vacc ine, unspecified formulation Kunal Myers DO Work Phone: [facility] Payers Date Payer Category Payer Private Health Insurance MMO SUP ERMED PPO [id number] 2019 Unknown MMO MMO SUPER[employer] PLUS [id number] 2019-Present [phone] [address] [place] [address] PPO [id number] 2019 Unknown [id number] 2019 Unknown [id number] Social History Date Type Detail Facility Start: 09-27-2012 End: 07-09-2024 Tobacco smoking status NHIS Never smoked tobacco [facility] Start: 01-05-2022 End: 04-13-2025 Alcohol intake Current non-drinker of alcohol (finding) [facility] Start: 1975 Sex Assigned At Not on file [facility] Start: 09-27-2012 End: 07-09-2024 Tobacco use and exposure Smokeless tobacco non-user [facility] Work Phone: Start: 07-09-2024 End: 04-13-2025 History of Social function [facility] Start: 07-09-2024 End: 04-13-2025 [facility] Retraceities [facility] Has the [employer], or [employer] threatened to shut off services in your home in past 12Mo No [facility] Do you belong to any clubs or organizations such as alevism groups, unions, fraternal or athletic groups, or school groups? Yes [facility] Are you now , , , , never or living with a partner? [facility] How often to you hav e a drink containing alcohol? Monthly or less [facility] How many standard dr inks containing alcohol do you have on a typical day? 1 or 2 [facility] How often do you hav e 6 or more drinks on 1 occasion? Never [facility] How hard is it for y ou to pay for the very basics like food, housing, medical care, and heating Not very hard [facility] Adult Depression Scr eening Assessment 0 [facility] Do you feel stress - tense, restless, nervous, or anxious, or unable to sleep at night because your mind is troubled all the time - these days [OSQ] To some extent [facility] (I/We) worried joseph er (my/our) food would run out before (I/we) got money to buy more. Never true [facility] Medical Equipment Procedure Code Equipment Code Equipment Original Text Equipment Identifier Dates [id number], [id number], [id number], [id number] Start: 01-03-2017 End: 03-13-2025 Comment on above: Check glucose fastin g in morning and 2 hours after every meal. 1 Strip four times d aily. Use as instructed 1 Each four times da emma. Use as instructed 1 Strip four times d aily. Clinical Notes 01-03-2017 to 04-13-2025 Krista Slaughter APRN.QUALITY CONTROL TECH RAW MATERIALS - 04/13/2025 10:37 PM EDTPatient InstructionsTelephone Encounter - Neymar DevriesSHI - 03/16/2025 6:03 PM EDTPatient InstructionsPatient Instructions Note Date & Type Note Facility 04-13-2025 Note HNO ID: [id number] Author: KRISTA SLAUGHTER APRN.QUALITY CONTROL TECH RAW MATERIALS Service: ? Author Type: Nurse Practitioner Type: Progress Notes Filed: 04/13/2025 22:39 Note Text: This is a 50 year old female who presents today with: Brynn Cheng is a 50-year-old female with a history of depression, presenting for follow-up. HISTORY OF PRESENT ILLNESS: Depression: - Currently taking Cymbalta 60 mg daily x2.5 weeks; previously on 30 mg daily x1-2 weeks. - Reports less drastic improvement compared to previous experiences with Cymbalta. - Noted 5-6 consecutive really good strong days last week. - Has been on Cymbalta twice before, once for 3 months and once for 1 month, with instant improvement. - Inquired about Deplin availability; previously obtained from [facility], but [facility] pharmacist indicated a prescription is required. - Sleep is generally good, though frequently interrupted by her two young children. - Energy levels have improved, with a recent energy surge last week. - Motivation has increased compared to pre-medication levels. - Experienced lower energy over the weekend due to emotional distress related to divorce. PAST MEDICAL HISTORY: PAST MEDICAL HISTORY Diagnosis Date Anemia depression and anxiety Gestational diabetes mellitus, class A1 (HCC) 01/03/2017 PMH - PAST MEDICAL HISTORY OF BASAL CELL CARCINOMA PAST SURGICAL HISTORY Procedure Laterality Date EXTRACTION, ERUPTED TOOTH OR EXPOSED ROOT (ELEVATION AND/OR FORCEPS REMOVAL) 07/2014 and was in hospital to get abcess removed from infection after PAST SURGICAL HISTORY OF BASAL CELL REMOVED FROM RIGHT PRESYBETERIAN -2 PAST SURGICAL HISTORY OF DEVIATED SEPTUM TONSILLECTOMY PRIMARY/SECONDARY Tonsillectomy ALLERGIES Adhesive Tape (Rosins) and Bacitracin MEDICATIONS Current Outpatient Medications Medication Sig levomefolate (DEPLIN, ALGAL OIL,) 15 mg capsules Take 1 capsule by mouth once daily. DULoxetine (CYMBALTA) 60 mg capsule Take 1 capsule by mouth once daily. No current facility-administered medications for this visit. FAMILY HISTORY Problem Relation Age of Onset Lipids Father Hypertension Father Diabetes Father Lipids Maternal Grandmother Diabetes Maternal Grandfather Heart Paternal Grandfather Hypertension Paternal Grandfather Lipids Maternal Aunt Social History Tobacco Use Smoking status: Never Smokeless tobacco: Never Substance Use Topics Alcohol use: No Drug use: No REVIEW OF SYSTEMS Constitutional: (+) fatigue, (+) sleep disturbance Psychiatric: (+) grief EXAM: BP 116/78 Pulse 80 Resp 16 LMP 05/12/2024 (Approximate) SpO2 99% PHYSICAL EXAM: General Appearance: Well appearing, alert, in no acute distress, well-hydrated, well nourished.. Skin: Skin color, texture, turgor normal, no suspicious rashes or lesions. Head: Normocephalic, no masses, lesions, tenderness or abnormalities. Eyes: Anicteric sclera. Extraocular movements are intact. . Neurologic: Gait normal. ASSESSMENT/PLAN 1. Adjustment disorder with mixed anxiety and depressed mood (F43.23) - Currently on duloxetine 60 mg for two and a half weeks; experiencing some improvement but not as significant as previous experiences with the medication. - Educated that full therapeutic effect of duloxetine can take up to a month. - Noted fluctuations in mood and energy levels; experiencing both good and bad days. - Sleep is generally good, though occasionally interrupted due to having young children; no significant worsening of sleep quality. - Energy levels have shown some improvement, with periods of increased motivation. - Prescribed Deplin, sent to [facility]; discussed options for obtaining medication if [facility] is unable to fill it, including mail order through [facility] or [facility]. - Converted duloxetine prescription to a 90-day supply with one refill, sent to [facility]. - Follow-up appointment scheduled with Dr. Myers in July to assess progress and determine need for continued medication management. Discussed treatment plan and patient voices understanding. Patient's questions answered appropriately. Medications and potential side effects were discussed and patient voices understanding. Return to the office as scheduled or as needed for worsening/no improvement. Krista Slaughter APRN.QUALITY CONTROL TECH RAW MATERIALS Recording using RoommateFit software for draft documentation of the visit was discussed with the patient/authorized manufacturing sales representative; all questions welcomed and answered. Patient/authorized manufacturing sales representative agreed to proceed [facility] 04-13-2025 History of Present illness Narrative This is a 50 year old female who presents today with: Brynn Cheng is a 50-year-old female with a history of depression, presenting for follow-up. HISTORY OF PRESENT ILLNESS: Depression: - Currently taking Cymbalta 60 mg daily x2.5 weeks; previously on 30 mg daily x1-2 weeks. - Reports less drastic improvement compared to previous experiences with Cymbalta. - Noted 5-6 consecutive really good strong days last week. - Has been on Cymbalta twice before, once for 3 months and once for 1 month, with instant improvement. - Inquired about Deplin availability; previously obtained from [facility], but [facility] pharmacist indicated a prescription is required. - Sleep is generally good, though frequently interrupted by her two young children. - Energy levels have improved, with a recent energy surge last week. - Motivation has increased compared to pre-medication levels. - Experienced lower energy over the weekend due to emotional distress related to divorce. PAST MEDICAL HISTORY: PAST MEDICAL HISTORY Diagnosis Date Anemia depression and anxiety Gestational diabetes mellitus, class A1 ([facility]) 01/03/2017 PMH - PAST MEDICAL HISTORY OF BASAL CELL CARCINOMA PAST SURGICAL HISTORY Procedure Laterality Date EXTRACTION, ERUPTED TOOTH OR EXPOSED ROOT (ELEVATION AND/OR FORCEPS REMOVAL) 07/2014 and was in hospital to get abcess removed from infection after PAST SURGICAL HISTORY OF BASAL CELL REMOVED FROM RIGHT PRESYBETERIAN -2 PAST SURGICAL HISTORY OF DEVIATED SEPTUM TONSILLECTOMY PRIMARY/SECONDARY <AGE 14 Tonsillectomy ALLERGIES Adhesive Tape (Rosins) and Bacitracin MEDICATIONS Current Outpatient Medications Medication Sig levomefolate (DEPLIN, ALGAL OIL,) 15 mg capsules Take 1 capsule by mouth once daily. DULoxetine (CYMBALTA) 60 mg capsule Take 1 capsule by mouth once daily. No current facility-administered medications for this visit. FAMILY HISTORY Problem Relation Age of Onset Lipids Father Hypertension Father Diabetes Father Lipids Maternal Grandmother Diabetes Maternal Grandfather Heart Paternal Grandfather Hypertension Paternal Grandfather Lipids Maternal Aunt Social History Tobacco Use Smoking status: Never Smokeless tobacco: Never Substance Use Topics Alcohol use: No Drug use: No REVIEW OF SYSTEMS Constitutional: (+) fatigue, (+) sleep disturbance Psychiatric: (+) grief EXAM: BP 116/78 Pulse 80 Resp 16 LMP 05/12/2024 (Approximate) SpO2 99% PHYSICAL EXAM: General Appearance: Well appearing, alert, in no acute distress, well-hydrated, well nourished.. Skin: Skin color, texture, turgor normal, no suspicious rashes or lesions. Head: Normocephalic, no masses, lesions, tenderness or abnormalities. Eyes: Anicteric sclera. Extraocular movements are intact. . Neurologic: Gait normal. ASSESSMENT/PLAN 1. Adjustment disorder with mixed anxiety and depressed mood (F43.23) - Currently on duloxetine 60 mg for two and a half weeks; experiencing some improvement but not as significant as previous experiences with the medication. - Educated that full therapeutic effect of duloxetine can take up to a month. - Noted fluctuations in mood and energy levels; experiencing both good and bad days. - Sleep is generally good, though occasionally interrupted due to having young children; no significant worsening of sleep quality. - Energy levels have shown some improvement, with periods of increased motivation. - Prescribed Deplin, sent to [facility]; discussed options for obtaining medication if [facility] is unable to fill it, including mail order through [facility] or [facility]. - Converted duloxetine prescription to a 90-day supply with one refill, sent to [facility]. - Follow-up appointment scheduled with Dr. Myers in July to assess progress and determine need for continued medication management. Discussed treatment plan and patient voices understanding. Patient's questions answered appropriately. Medications and potential side effects were discussed and patient voices understanding. Return to the office as scheduled or as needed for worsening/no improvement. Krista Slaughter APRN.QUALITY CONTROL TECH RAW MATERIALS Recording using RoommateFit software for draft documentation of the visit was discussed with the patient/authorized manufacturing sales representative; all questions welcomed and answered. Patient/authorized manufacturing sales representative agreed to proceed documented in this encounter [facility] 04-13-2025 Instructions Krista Slaughter APRN.QUALITY CONTROL TECH RAW MATERIALS - 04/13/2025 3:48 PM EDT - Continue taking Cymbalta (duloxetine) 60 mg daily as prescribed; a 90-day supply has been sent to your [facility]. It may take up to one month for the full benefit, and mood ups and downs are normal during this time. - Begin Deplin (L-methylfolate) as prescribed; a 90-day supply has been sent to your [facility]. If [facility] cannot fill it, send a PixelPin message with the address of your preferred [facility] mail-order pharmacy or request a printed prescription to car pick up driver or have mailed to you. - Attend your follow-up appointment with Dr. Myers in July to review your progress and arrange any future refills. documented in this encounter [facility] 03-16-2025 Telephone encounter Note Pt notified of provider response. She verbalized understanding. Neymar Devries LPN [facility] 03-16-2025 Miscellaneous Notes Pt notified of provider response. She verbalized understanding. Neymar Devries LPN Yes, if she is tolerating the dose okay, she can increase to the 60 mg daily. She can use two of her current pills. I sent a new script for the 60 mg to the pharmacy. Krista Slaughter APRN.ELTON Pt reports Felipe Slaughter, prescribed her cymbalta 30 mg daily on Sunday. Reports she has started on 60 mg in the past and the 30 mg does not seem enough. Reports with the 60 mg she usually notices a difference quickly. Reports the 30 mg has not made a difference at all yet. Pt asking if provider could increase cymbalta to 60 mg daily? Please advise pt. documented in this encounter [facility] 03-16-2025 Telephone encounter Note Yes, if she is tolerating the dose okay, she can increase to the 60 mg daily. She can use two of her current pills. I sent a new script for the 60 mg to the pharmacy. Krista Slaughter APRN.ELTON [facility] 03-16-2025 Telephone encounter Note Pt reports Felipe Slaughter, prescribed her cymbalta 30 mg daily on Sunday. Reports she has started on 60 mg in the past and the 30 mg does not seem enough. Reports with the 60 mg she usually notices a difference quickly. Reports the 30 mg has not made a difference at all yet. Pt asking if provider could increase cymbalta to 60 mg daily? Please advise pt. [facility] 03-13-2025 Instructions Krista Slaughter APRN.CNP - 03/13/2025 2:13 PM EDT Start the cymbalta. Recheck in a month. Definitely let us know sooner if any problems/concerns. documented in this encounter [facility] 03-13-2025 Note HNO ID: [id number] Author: KRISTA SLAUGHTER APRN.CNP Service: ? Author Type: Nurse Practitioner Type: Progress Notes Filed: 03/13/2025 15:22 Note Text: This is a 50 year old female who presents today with: Patient presents with: Depression HISTORY OF PRESENT ILLNESS: Brynn Cheng is a 50 year old female. Patient presents with: Depression Cymbalta with deplin. Refers was on it last around 35. Has tried some other medications in the past, which had made symptoms worse or she would hear voices (with wellbutrin). Depression evaluation: Sadness: yes Sleep: more disrupted sleep recently. More trouble with falling asleep. 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 Guilt: not a good enough mom. Energy Levels: very low. Very unmotivated. Concentration: not as good. Appetite: refers recent weight gain -- comfort eater. Physical: migraines have been more with the stress. Suicidal/homicidal ideation: no Feels stuck. Goes to counseling since about 2018. On 3rd counselor. PAST MEDICAL HISTORY: PAST MEDICAL HISTORY Diagnosis Date Anemia depression and anxiety Gestational diabetes mellitus, class A1 ([facility]) 01/03/2017 PMH - PAST MEDICAL HISTORY OF BASAL CELL CARCINOMA PAST SURGICAL HISTORY Procedure Laterality Date EXTRACTION, ERUPTED TOOTH OR EXPOSED ROOT (ELEVATION AND/OR FORCEPS REMOVAL) 07/2014 and was in hospital to get abcess removed from infection after PAST SURGICAL HISTORY OF BASAL CELL REMOVED FROM RIGHT PRESYBETERIAN -2 PAST SURGICAL HISTORY OF DEVIATED SEPTUM TONSILLECTOMY PRIMARY/SECONDARY Tonsillectomy ALLERGIES Adhesive Tape (Rosins) and Bacitracin MEDICATIONS No current outpatient medications on file. No current facility-administered medications for this visit. FAMILY HISTORY Problem Relation Age of Onset Lipids Father Hypertension Father Diabetes Father Lipids Maternal Grandmother Diabetes Maternal Grandfather Heart Paternal Grandfather Hypertension Paternal Grandfather Lipids Maternal Aunt Social History Tobacco Use Smoking status: Never Smokeless tobacco: Never Substance Use Topics Alcohol use: No Drug use: No EXAM: BP 124/82 Pulse 63 Resp 16 LMP 05/12/2024 (Approximate) SpO2 100% PHYSICAL EXAM: General Appearance: Well appearing, alert, in no acute distress, well-hydrated, well nourished.. Skin: Skin color, texture, turgor normal, no suspicious rashes or lesions. Head: Normocephalic, no masses, lesions, tenderness or abnormalities. Eyes: Anicteric sclera. Extraocular movements are intact. . Lungs: Lungs clear to auscultation. No wheezing, rhonchi, rales.. Heart: RRR without murmur, gallop, or rubs. No ectopy. Neurologic: Gait normal. ASSESSMENT/PLAN: 1. Moderate episode of recurrent major depressive disorder (HCC) - ICD9: 296.32, ICD10: F33.1 She previously was success with duloxetine. She is interested in restarting this. She has only taken short-term in the past (a few months) as would feel better and then stop the medication. Discussed that longer treatment may be helpful in controlling symptoms. - DULOXETINE 30 MG CAPSULE,DELAYED RELEASE Recheck in 1 month, sooner if needed. Discussed treatment plan and patient voices understanding. Patient's questions answered appropriately. Medications and potential side effects were discussed and patient voices understanding. Return to the office as scheduled or as needed for worsening/no improvement. Krista Slaughter APRN.[facility] 03-13-2025 History of Present illness Narrative This is a 50 year old female who presents today with: Patient presents with: Depression HISTORY OF PRESENT ILLNESS: Brynn Cheng is a 50 year old female. Patient presents with: Depression Cymbalta with deplin. Refers was on it last around 35. Has tried some other medications in the past, which had made symptoms worse or she would hear voices (with wellbutrin). Depression evaluation: Sadness: yes Sleep: more disrupted sleep recently. More trouble with falling asleep. 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 Guilt: not a good enough mom. Energy Levels: very low. Very unmotivated. Concentration: not as good. Appetite: refers recent weight gain -- comfort eater. Physical: migraines have been more with the stress. Suicidal/homicidal ideation: no Feels stuck. Goes to counseling since about 2018. On 3rd counselor. PAST MEDICAL HISTORY: PAST MEDICAL HISTORY Diagnosis Date Anemia depression and anxiety Gestational diabetes mellitus, class A1 (HCC) 01/03/2017 PMH - PAST MEDICAL HISTORY OF BASAL CELL CARCINOMA PAST SURGICAL HISTORY Procedure Laterality Date EXTRACTION, ERUPTED TOOTH OR EXPOSED ROOT (ELEVATION AND/OR FORCEPS REMOVAL) 07/2014 and was in hospital to get abcess removed from infection after PAST SURGICAL HISTORY OF BASAL CELL REMOVED FROM RIGHT PRESYBETERIAN -2 PAST SURGICAL HISTORY OF DEVIATED SEPTUM TONSILLECTOMY PRIMARY/SECONDARY <AGE 14 Tonsillectomy ALLERGIES Adhesive Tape (Rosins) and Bacitracin MEDICATIONS No current outpatient medications on file. No current facility-administered medications for this visit. FAMILY HISTORY Problem Relation Age of Onset Lipids Father Hypertension Father Diabetes Father Lipids Maternal Grandmother Diabetes Maternal Grandfather Heart Paternal Grandfather Hypertension Paternal Grandfather Lipids Maternal Aunt Social History Tobacco Use Smoking status: Never Smokeless tobacco: Never Substance Use Topics Alcohol use: No Drug use: No EXAM: BP 124/82 Pulse 63 Resp 16 LMP 05/12/2024 (Approximate) SpO2 100% PHYSICAL EXAM: General Appearance: Well appearing, alert, in no acute distress, well-hydrated, well nourished.. Skin: Skin color, texture, turgor normal, no suspicious rashes or lesions. Head: Normocephalic, no masses, lesions, tenderness or abnormalities. Eyes: Anicteric sclera. Extraocular movements are intact. . Lungs: Lungs clear to auscultation. No wheezing, rhonchi, rales.. Heart: RRR without murmur, gallop, or rubs. No ectopy. Neurologic: Gait normal. ASSESSMENT/PLAN: 1. Moderate episode of recurrent major depressive disorder (HCC) - ICD9: 296.32, ICD10: F33.1 She previously was success with duloxetine. She is interested in restarting this. She has only taken short-term in the past (a few months) as would feel better and then stop the medication. Discussed that longer treatment may be helpful in controlling symptoms. - DULOXETINE 30 MG CAPSULE,DELAYED RELEASE Recheck in 1 month, sooner if needed. Discussed treatment plan and patient voices understanding. Patient's questions answered appropriately. Medications and potential side effects were discussed and patient voices understanding. Return to the office as scheduled or as needed for worsening/no improvement. Krista Slaughter APRN.ELTON documented in this encounter [facility] 03-13-2025 Telephone encounter Note Patient call in for depression. Patient states that she was previously on medication and would like to go back on medication. Nurse Triage assessment completed with protocol recommending for disposition of see PCP in 24 hours. Patient scheduled with Krista snyder 03/13/2025 at 1:40. Care advice reviewed with patient, patient stated understanding. Reason for Disposition [1] Depression AND [2] getting worse (e.g., sleeping poorly, less able to do activities of daily living) Answer Assessment - Initial Assessment Questions 1. CONCERN: Patient states that she has been putting it off. Patient states that she just got off the phone with therapist who had recommended that she call to get put back on medication. Patient has been very emotional. 2. DEPRESSION SYMPTOM SCREENING: Feelings of guilt, sadness. Patient states that she is a single mom and has been going on about 5 years. Since children getting more independent she is more overwhelmed with her feelings. 3. RISK OF HARM - Denies, patient states that she feels like she is just stuck. Patient states that she feels like she is trying to get out of it but there is not relief. 4. RISK OF HARM - Denies 5. FUNCTIONAL IMPAIRMENT: Yes, patient states that she just lost motivation. Patient states that things are taking more effort. 6. SUPPORT: Her Therapist, mom, and sisters. 7. THERAPIST: Madhuri Haywood 8. 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 9. ALCOHOL USE OR SUBSTANCE USE (DRUG USE): Denies 10. OTHER: Denies Protocols used: [id number] 03-13-2025 Miscellaneous Notes Patient call in for depression. Patient states that she was previously on medication and would like to go back on medication. Nurse Triage assessment completed with protocol recommending for disposition of see PCP in 24 hours. Patient scheduled with Krista snyder 03/13/2025 at 1:40. Care advice reviewed with patient, patient stated understanding. Reason for Disposition [1] Depression AND [2] getting worse (e.g., sleeping poorly, less able to do activities of daily living) Answer Assessment - Initial Assessment Questions 1. CONCERN: Patient states that she has been putting it off. Patient states that she just got off the phone with therapist who had recommended that she call to get put back on medication. Patient has been very emotional. 2. DEPRESSION SYMPTOM SCREENING: Feelings of guilt, sadness. Patient states that she is a single mom and has been going on about 5 years. Since children getting more independent she is more overwhelmed with her feelings. 3. RISK OF HARM - Denies, patient states that she feels like she is just stuck. Patient states that she feels like she is trying to get out of it but there is not relief. 4. RISK OF HARM - Denies 5. FUNCTIONAL IMPAIRMENT: Yes, patient states that she just lost motivation. Patient states that things are taking more effort. 6. SUPPORT: Her Therapist, mom, and sisters. 7. THERAPIST: Madhuri Haywood 8. 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 9. ALCOHOL USE OR SUBSTANCE USE (DRUG USE): Denies 10. OTHER: Denies Protocols used: [id number] documented in this encounter [facility] 11-13-2024 Note HNO ID: [id number] Author: NATACHA CASTRO APRN.QUALITY CONTROL TECH [employer] Service: ? Author Type: Nurse Practitioner Type: Progress Notes Filed: 11/13/2024 15:05 Note Text: Chief Complaint Patient presents with: Headache body aches Fever Sore Throat Cough HPI Brynn Cheng is a 49 year old female who presents here today for Above Complaints. Patient presents for headache, body aches, fever, sore throat and cough. 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 Unclear start to symptoms due to chronic sinusitis. Past medical history, appointments, medications, allergies reviewed. Previous Medical History PAST MEDICAL HISTORY Diagnosis Date Anemia depression and anxiety Gestational diabetes mellitus, class A1 01/03/2017 PMH - PAST MEDICAL HISTORY OF BASAL CELL CARCINOMA Previous Surgical History PAST SURGICAL HISTORY Procedure Laterality Date EXTRACTION, ERUPTED TOOTH OR EXPOSED ROOT (ELEVATION AND/OR FORCEPS REMOVAL) 07/2014 and was in hospital to get abcess removed from infection after PAST SURGICAL HISTORY OF BASAL CELL REMOVED FROM RIGHT PRESYBETERIAN -2 PAST SURGICAL HISTORY OF DEVIATED SEPTUM TONSILLECTOMY PRIMARY/SECONDARY Tonsillectomy Family History FAMILY HISTORY Problem Relation Age of Onset Lipids Father Hypertension Father Diabetes Father Lipids Maternal Grandmother Diabetes Maternal Grandfather Heart Paternal Grandfather Hypertension Paternal Grandfather Lipids Maternal Aunt Patient Allergies ALLERGIES Allergen Reactions Adhesive Tape (Thais* Rash Bacitracin Rash Current Medications Current Outpatient Medications on File Prior to Visit Medication Sig benzonatate (TESSALON PERLE) 100 mg capsule Take 2 capsules by mouth three times daily as needed. Etonogestrel-Ethinyl Estradiol (NUVARING) 0.12-0.015 mg/24 hr vaginal ring Use 1 Each vaginally as directed. Place ring for 24 days, remove for 4 days and repeat (Patient not taking: Reported on 11/04/2019 ) Blood-Glucose Meter misc 1 Each as directed. (Patient not taking: Reported on 11/04/2019 ) blood sugar diagnostic test strip 1 Strip four times daily. Use as instructed (Patient not taking: Reported on 11/04/2019 ) Lancets lancets 1 Each four times daily. Use as instructed (Patient not taking: Reported on 01/05/2022 ) Urine Glucose-Ketones Test (KETO-DIASTIX) strp 1 Strip four times daily. (Patient not taking: Reported on 01/05/2022 ) Blood-Glucose Meter (GLUCOMETER ELITE CLASSIC) monitoring kit 1 Each as needed. USE DIRECTED, 2 TO 6 TIMES A DAY (Patient not taking: Reported on 11/04/2019 ) blood sugar diagnostic (GLUCOSTIX TEST) test strip Check glucose fasting in morning and 2 hours after every meal. (Patient not taking: Reported on 11/04/2019 ) Lancets (FINGERSTIX LANCETS) lancets Check glucose fasting in morning and 2 hours after every meal. (Patient not taking: Reported on 01/05/2022 ) Alcohol Swabs (ALCOHOL WIPES) padm Apply 1 application to affected area as needed. (Patient not taking: Reported on 11/04/2019 ) Breast Pump Device As directed (Patient not taking: Reported on 11/04/2019 ) Lrxliflu-Jk-Qss-Fe-FA ( VITAMIN) tab Take 1 tablet by mouth. (Patient not taking: Reported on 01/05/2022 ) Etonogestrel-Ethinyl Estradiol (NUVARING) 0.12-0.015 mg/24 hr vaginal ring Insert vaginally and leave in place for 3 consecutive weeks, then remove for 1 week. Indications: CONTRACEPTION (Patient not taking: Reported on 11/04/2019 ) ibuprofen 200 mg tablet Take 1-2 tablets by mouth every 4 hours as needed. FOR PAIN. (Patient not taking: Reported on 11/04/2019 ) No current facility-administered medications on file prior to visit. Social History Social History Tobacco Use Smoking status: Never Smokeless tobacco: Never Substance Use Topics Alcohol use: No Drug use: No Review of Symptoms REVIEW OF SYSTEMS SEE HPI EXAM: BP 114/78 Pulse 74 Temp 36.9 ?C (98.5 ?F) Wt 82.1 kg (181 lb) LMP 05/12/2024 (Approximate) SpO2 100% BMI 31.28 kg/m? General Appearance: Well appearing, alert, in no acute distress, well-hydrated, well nourished. Nose/Sinuses: Positive findings: mucosa erythematous and swollen, purulent rhinorrhea. Oropharynx: Positive findings: moderate oropharyngeal erythema, Lungs: Lungs clear to auscultation. No wheezing, rhonchi, rales.. Heart: RRR without murmur, gallop, or rubs. No ectopy. Health Maintenance List Depression Screening Never done Anxiety Screening Never done Hepatitis C Screening Never done Hepatitis B Vaccine(1 of 3 - 19+ 3-dose series) Never done Colorectal Cancer Screening Never done Influenza Vaccine(1) due on 03/30/2025 Covid-19 Vaccine( - season) due on 07/09/2025 Cervical Cancer Screening due on 05/15/2025 Mammogram Screening due on 09/19/2025 DTaP,Tdap,Td Vaccine(2 - Td or Tdap) due on 12/14/2026 Diabetes Screening due on 08/02/2027 Lip (more content not included)... [facility] 11-13-2024 History of Present illness Narrative Chief Complaint Patient presents with: Headache body aches Fever Sore Throat Cough HPI Brynn Cheng is a 49 year old female who presents here today for Above Complaints. Patient presents for headache, body aches, fever, sore throat and cough. 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 Unclear start to symptoms due to chronic sinusitis. Past medical history, appointments, medications, allergies reviewed. Previous Medical History PAST MEDICAL HISTORY Diagnosis Date Anemia depression and anxiety Gestational diabetes mellitus, class A1 01/03/2017 PMH - PAST MEDICAL HISTORY OF BASAL CELL CARCINOMA Previous Surgical History PAST SURGICAL HISTORY Procedure Laterality Date EXTRACTION, ERUPTED TOOTH OR EXPOSED ROOT (ELEVATION AND/OR FORCEPS REMOVAL) 07/2014 and was in hospital to get abcess removed from infection after PAST SURGICAL HISTORY OF BASAL CELL REMOVED FROM RIGHT PRESYBETERIAN -2 PAST SURGICAL HISTORY OF DEVIATED SEPTUM TONSILLECTOMY PRIMARY/SECONDARY <AGE 14 Tonsillectomy Family History FAMILY HISTORY Problem Relation Age of Onset Lipids Father Hypertension Father Diabetes Father Lipids Maternal Grandmother Diabetes Maternal Grandfather Heart Paternal Grandfather Hypertension Paternal Grandfather Lipids Maternal Aunt Patient Allergies ALLERGIES Allergen Reactions Adhesive Tape (Thais* Rash Bacitracin Rash Current Medications Current Outpatient Medications on File Prior to Visit Medication Sig benzonatate (TESSALON PERLE) 100 mg capsule Take 2 capsules by mouth three times daily as needed. Etonogestrel-Ethinyl Estradiol (NUVARING) 0.12-0.015 mg/24 hr vaginal ring Use 1 Each vaginally as directed. Place ring for 24 days, remove for 4 days and repeat (Patient not taking: Reported on 11/04/2019 ) Blood-Glucose Meter misc 1 Each as directed. (Patient not taking: Reported on 11/04/2019 ) blood sugar diagnostic test strip 1 Strip four times daily. Use as instructed (Patient not taking: Reported on 11/04/2019 ) Lancets lancets 1 Each four times daily. Use as instructed (Patient not taking: Reported on 01/05/2022 ) Urine Glucose-Ketones Test (KETO-DIASTIX) strp 1 Strip four times daily. (Patient not taking: Reported on 01/05/2022 ) Blood-Glucose Meter (GLUCOMETER ELITE CLASSIC) monitoring kit 1 Each as needed. USE DIRECTED, 2 TO 6 TIMES A DAY (Patient not taking: Reported on 11/04/2019 ) blood sugar diagnostic (GLUCOSTIX TEST) test strip Check glucose fasting in morning and 2 hours after every meal. (Patient not taking: Reported on 11/04/2019 ) Lancets (FINGERSTIX LANCETS) lancets Check glucose fasting in morning and 2 hours after every meal. (Patient not taking: Reported on 01/05/2022 ) Alcohol Swabs (ALCOHOL WIPES) padm Apply 1 application to affected area as needed. (Patient not taking: Reported on 11/04/2019 ) Breast Pump Device As directed (Patient not taking: Reported on 11/04/2019 ) Wpncdlni-Dg-Lvm-Fe-FA ( VITAMIN) tab Take 1 tablet by mouth. (Patient not taking: Reported on 01/05/2022 ) Etonogestrel-Ethinyl Estradiol (NUVARING) 0.12-0.015 mg/24 hr vaginal ring Insert vaginally and leave in place for 3 consecutive weeks, then remove for 1 week. Indications: CONTRACEPTION (Patient not taking: Reported on 11/04/2019 ) ibuprofen 200 mg tablet Take 1-2 tablets by mouth every 4 hours as needed. FOR PAIN. (Patient not taking: Reported on 11/04/2019 ) No current facility-administered medications on file prior to visit. Social History Social History Tobacco Use Smoking status: Never Smokeless tobacco: Never Substance Use Topics Alcohol use: No Drug use: No Review of Symptoms REVIEW OF SYSTEMS SEE HPI EXAM: BP 114/78 Pulse 74 Temp 36.9 C (98.5 F) Wt 82.1 kg (181 lb) LMP 05/12/2024 (Approximate) SpO2 100% BMI 31.28 kg/m General Appearance: Well appearing, alert, in no acute distress, well-hydrated, well nourished. Nose/Sinuses: Positive findings: mucosa erythematous and swollen, purulent rhinorrhea. Oropharynx: Positive findings: moderate oropharyngeal erythema, Lungs: Lungs clear to auscultation. No wheezing, rhonchi, rales.. Heart: RRR without murmur, gallop, or rubs. No ectopy. Health Maintenance List Depression Screening Never done Anxiety Screening Never done Hepatitis C Screening Never done Hepatitis B Vaccine(1 of 3 - 19+ 3-dose series) Never done Colorectal Cancer Screening Never done Influenza Vaccine(1) due on 03/30/2025 Covid-19 Vaccine(3 - 2023- season) due on 07/09/2025 Cervical Cancer Screening due on 05/15/2025 Mammogram Screening due on 09/19/2025 DTaP,Tdap,Td Vaccine(2 - Td or Tdap) due on 12/14/2026 Diabetes Screening due on 08/02/2027 Lipid Screening due on 08/02/2029 HIV Screening Completed ASSESSMENT/PLAN: 1. Sore throat - ICD9: 462, ICD10: J02.9 - suspect strep - Rapid Strep positive in the office today - antibiotic as written - Discussed supportive care treatment with fluids, rest and analgesia. - Contagious dz precautions discussed- including considered contagious until on antibiotics for 24 hours - The patient should follow up in 3-5 days if symptoms persist or worsen - STREP A MOLECULAR (POC) - AMOXICILLIN 500 MG CAPSULE Natacha Castro APRN.QUALITY CONTROL TECH [employer] documented in this encounter [facility] 09-26-2024 Telephone encounter Note Pt. informed via My Chart. [facility] 09-26-2024 Miscellaneous Notes Pt. informed via My Chart. Please inform patient that her mammogram is normal/negative. She will need routine screening mammogram in 1 year. Thanks Kunal Myers DO' documented in this encounter [facility] 09-26-2024 Telephone encounter Note Please inform patient that her mammogram is normal/negative. She will need routine screening mammogram in 1 year. Thanks Kunal Myers DO' [facility] Work Phone: 09-19-2024 History of Present illness Narrative Radiology Service Progress Note PATIENT NAME: Brynn Cheng DATE OF SERVICE: September 19, 2024 TIME: 9:22 AM PATIENT IDENTITY VERIFICATION COMPLETED USING TWO (2) IDENTIFIERS: Name and Date of confirmed by patient verbally. FALL SCREENING: Has the patient had 2 falls in the last year or 1 fall with injury or currently using an Ambulatory Assistive Device (Walker, Cane, Wheelchair, Crutches, etc.)? No PATIENT GENDER DATA: Female. status: : No status: NO. PATIENT RELEVANT IMPLANT DATA REVIEWED: Not Applicable PATIENT PRESENTS WITH AN IMPLANTABLE OR ATTACHED SHAREPOINT APPLICATION DEVELOPER: No RADIOLOGY DEPARTMENT: Mammography PERIPHERAL IV DATA: Not applicable SIGNED BY: Katarina Cosby Asseta September 19, 2024 9:22 AM documented in this encounter [facility] 09-19-2024 Note HNO ID: [id number] Author: KATARINA COSBY Mammo Tech Service: ? Author Type: Clinical Trial Leader Type: Progress Notes Filed: 09/19/2024 09:23 Note Text: Radiology Service Progress Note PATIENT NAME: Brynn Cheng DATE OF SERVICE: September 19, 2024 TIME: 9:22 AM PATIENT IDENTITY VERIFICATION COMPLETED USING TWO (2) IDENTIFIERS: Name and Date of confirmed by patient verbally. FALL SCREENING: Has the patient had 2 falls in the last year or 1 fall with injury or currently using an Ambulatory Assistive Device (Walker, Cane, Wheelchair, Crutches, etc.)? No PATIENT GENDER DATA: Female. status: : No status: NO. PATIENT RELEVANT IMPLANT DATA REVIEWED: Not Applicable PATIENT PRESENTS WITH AN IMPLANTABLE OR ATTACHED SHAREPOINT APPLICATION DEVELOPER: No RADIOLOGY DEPARTMENT: Mammography PERIPHERAL IV DATA: Not applicable SIGNED BY: Starr Romero September 19, 2024 9:22 AM [facility] 08-12-2024 Telephone encounter Note Ana msg also sent [facility] 08-12-2024 Miscellaneous Notes Ana msg also sent Form completed. Message left to car pick up driver in Dr. Myers's office. I don't have a form to complete /Kunal Myers DO Pt informed. Asking if physical form complete? Serena Whipple MA Please inform patient that her labs are overall normal and stable except for low vitamin d levels. Needs to increase vitamin d by extra [id number] international unit(s) a day with a meal Kunal Myers DO documented in this encounter [facility] 08-11-2024 Telephone encounter Note Form completed. Message left to car pick up driver in Dr. Myers's office. [facility] 08-11-2024 Telephone encounter Note I don't have a form to complete /Kunal Myers DO [facility] Work Phone: 08-07-2024 Telephone encounter Note Pt informed. Asking if physical form complete? Serena Whipple MA [facility] 08-06-2024 Telephone encounter Note Please inform patient that her labs are overall normal and stable except for low vitamin d levels. Needs to increase vitamin d by extra [phone] international unit(s) a day with a meal Kunal Myers DO [facility] 07-09-2024 Note HNO ID: [id number] Author: KUNAL MYERS DO Service: ? Author Type: Physician Type: Progress Notes Filed: 07/09/2024 16:52 Note Text: CC: Brynn Cheng is a 49 year old female who presents to the office for physical HPI: Overall healthy, just recently went through a divorce about 4 years ago. Has a 7 year old and 4 year old daughter. 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 Yoga PAST MEDICAL HISTORY Diagnosis Date Anemia depression and anxiety Gestational diabetes mellitus, class A1 01/03/2017 PMH - PAST MEDICAL HISTORY OF BASAL CELL CARCINOMA PAST SURGICAL HISTORY Procedure Laterality Date EXTRACTION, ERUPTED TOOTH OR EXPOSED ROOT (ELEVATION AND/OR FORCEPS REMOVAL) 07/2014 and was in hospital to get abcess removed from infection after PAST SURGICAL HISTORY OF BASAL CELL REMOVED FROM RIGHT PRESYBETERIAN -2 PAST SURGICAL HISTORY OF DEVIATED SEPTUM TONSILLECTOMY PRIMARY/SECONDARY Tonsillectomy Social History: Social History Tobacco Use Smoking status: Never Smokeless tobacco: Never Substance Use Topics Alcohol use: No Drug use: No FAMILY HISTORY Problem Relation Age of Onset Lipids Father Hypertension Father Diabetes Father Lipids Maternal Grandmother Diabetes Maternal Grandfather Heart Paternal Grandfather Hypertension Paternal Grandfather Lipids Maternal Aunt Current Outpatient prescriptions: benzonatate (TESSALON PERLE) 100 mg capsule Take 2 capsules by mouth three times daily as needed. Etonogestrel-Ethinyl Estradiol (NUVARING) 0.12-0.015 mg/24 hr vaginal ring Use 1 Each vaginally as directed. Place ring for 24 days, remove for 4 days and repeat (Patient not taking: Reported on 11/04/2019 ) Blood-Glucose Meter misc 1 Each as directed. (Patient not taking: Reported on 11/04/2019 ) blood sugar diagnostic test strip 1 Strip four times daily. Use as instructed (Patient not taking: Reported on 11/04/2019 ) Lancets lancets 1 Each four times daily. Use as instructed (Patient not taking: Reported on 01/05/2022 ) Urine Glucose-Ketones Test (KETO-DIASTIX) strp 1 Strip four times daily. (Patient not taking: Reported on 01/05/2022 ) Blood-Glucose Meter (GLUCOMETER ELITE CLASSIC) monitoring kit 1 Each as needed. USE DIRECTED, 2 TO 6 TIMES A DAY (Patient not taking: Reported on 11/04/2019 ) blood sugar diagnostic (GLUCOSTIX TEST) test strip Check glucose fasting in morning and 2 hours after every meal. (Patient not taking: Reported on 11/04/2019 ) Lancets (FINGERSTIX LANCETS) lancets Check glucose fasting in morning and 2 hours after every meal. (Patient not taking: Reported on 01/05/2022 ) Alcohol Swabs (ALCOHOL WIPES) padm Apply 1 application to affected area as needed. (Patient not taking: Reported on 11/04/2019 ) Breast Pump Device As directed (Patient not taking: Reported on 11/04/2019 ) Afeicqdm-Lb-Rtm-Fe-FA ( VITAMIN) tab Take 1 tablet by mouth. (Patient not taking: Reported on 01/05/2022 ) Etonogestrel-Ethinyl Estradiol (NUVARING) 0.12-0.015 mg/24 hr vaginal ring Insert vaginally and leave in place for 3 consecutive weeks, then remove for 1 week. Indications: CONTRACEPTION (Patient not taking: Reported on 11/04/2019 ) ibuprofen 200 mg tablet Take 1-2 tablets by mouth every 4 hours as needed. FOR PAIN. (Patient not taking: Reported on 11/04/2019 ) Allergies: ALLERGIES Allergen Reactions Adhesive Tape (Thais* Rash Bacitracin Rash ROS: See HIP PE: 07/09/24 1600 BP: 122/82 Pulse: 64 Resp: 16 Temp: 36.4 ?C (97.5 ?F) TempSrc: Left Tympanic Weight: 71.7 kg (158 lb) Height: 162 cm (5' 3.78) Gen: AANDO, NAD, non-toxic appearing, Pleasant, cooperative HEENT: NT/AC, PERRLA, EOMs intact b/l, nares clear and patent b/l, pharynx without erythema, exudate or lesions. Uvula midline. EACs without erythema or debris. TMs pearly cantu with intact landmarks b/l. Neck: supple, No cervical LAD, no thyromegaly, no carotid bruits CV: RRR, normal S1 and S2, no murmurs, no gallops, no rubs, Pulses 2+ and symmetric in UE and LE b/l Lungs: normal respiratory effort, CTA b/l, no wheezing or rhonchi or rales Abd: soft, NT, ND, +BS, no hepatosplenomegaly MS: FROM all 4 extremities Neuro: CN II-XII intact b/l, strength 5/5 b/l UE and LE, DTRs 2/4 UE and LE, sensation intact. Skin: warm, dry, intact, No rashes or lesions on exposed skin. No edema, normal pulses ASSESSMENT/PLAN: 1. Well adult exam - ICD9: V70.0, ICD10: Z00.00 (primary diagnosis) - Counseled on healthy diet and regular exercise - COMPREHENSIVE METABOLIC PANEL - THYROID STIMULATING HORMONE - T4 FREE/FREE THYROXINE - T3, FREE - COMPLETE BLOOD COUNT AND DIFFERENTIAL - LIPID PANEL BASIC - HEMOGLOBIN A1C - URINALYSIS, WITH MICROSCOPIC - VITAMIN D 25 HYDROXY - VITAMIN B12 - C-REACTIVE PROTEIN 2. Encounter for screening mammogram for malignant neoplasm of breast - ICD9: V76.12, ICD10: Z12.31 - Set up (more content not included)... [facility] 07-09-2024 History of Present illness Narrative CC: Brynn Cheng is a 49 year old female who presents to the office for physical HPI: Overall healthy, just recently went through a divorce about 4 years ago. Has a 7 year old and 4 year old daughter. 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 Yoga PAST MEDICAL HISTORY Diagnosis Date Anemia depression and anxiety Gestational diabetes mellitus, class A1 01/03/2017 PMH - PAST MEDICAL HISTORY OF BASAL CELL CARCINOMA PAST SURGICAL HISTORY Procedure Laterality Date EXTRACTION, ERUPTED TOOTH OR EXPOSED ROOT (ELEVATION AND/OR FORCEPS REMOVAL) 07/2014 and was in hospital to get abcess removed from infection after PAST SURGICAL HISTORY OF BASAL CELL REMOVED FROM RIGHT PRESYBETERIAN -2 PAST SURGICAL HISTORY OF DEVIATED SEPTUM TONSILLECTOMY PRIMARY/SECONDARY <AGE 14 Tonsillectomy Social History: Social History Tobacco Use Smoking status: Never Smokeless tobacco: Never Substance Use Topics Alcohol use: No Drug use: No FAMILY HISTORY Problem Relation Age of Onset Lipids Father Hypertension Father Diabetes Father Lipids Maternal Grandmother Diabetes Maternal Grandfather Heart Paternal Grandfather Hypertension Paternal Grandfather Lipids Maternal Aunt Current Outpatient prescriptions: benzonatate (TESSALON PERLE) 100 mg capsule Take 2 capsules by mouth three times daily as needed. Etonogestrel-Ethinyl Estradiol (NUVARING) 0.12-0.015 mg/24 hr vaginal ring Use 1 Each vaginally as directed. Place ring for 24 days, remove for 4 days and repeat (Patient not taking: Reported on 11/04/2019 ) Blood-Glucose Meter misc 1 Each as directed. (Patient not taking: Reported on 11/04/2019 ) blood sugar diagnostic test strip 1 Strip four times daily. Use as instructed (Patient not taking: Reported on 11/04/2019 ) Lancets lancets 1 Each four times daily. Use as instructed (Patient not taking: Reported on 01/05/2022 ) Urine Glucose-Ketones Test (KETO-DIASTIX) strp 1 Strip four times daily. (Patient not taking: Reported on 01/05/2022 ) Blood-Glucose Meter (GLUCOMETER ELITE CLASSIC) monitoring kit 1 Each as needed. USE DIRECTED, 2 TO 6 TIMES A DAY (Patient not taking: Reported on 11/04/2019 ) blood sugar diagnostic (GLUCOSTIX TEST) test strip Check glucose fasting in morning and 2 hours after every meal. (Patient not taking: Reported on 11/04/2019 ) Lancets (FINGERSTIX LANCETS) lancets Check glucose fasting in morning and 2 hours after every meal. (Patient not taking: Reported on 01/05/2022 ) Alcohol Swabs (ALCOHOL WIPES) padm Apply 1 application to affected area as needed. (Patient not taking: Reported on 11/04/2019 ) Breast Pump Device As directed (Patient not taking: Reported on 11/04/2019 ) Vuzelvwk-Hj-Oij-Fe-FA ( VITAMIN) tab Take 1 tablet by mouth. (Patient not taking: Reported on 01/05/2022 ) Etonogestrel-Ethinyl Estradiol (NUVARING) 0.12-0.015 mg/24 hr vaginal ring Insert vaginally and leave in place for 3 consecutive weeks, then remove for 1 week. Indications: CONTRACEPTION (Patient not taking: Reported on 11/04/2019 ) ibuprofen 200 mg tablet Take 1-2 tablets by mouth every 4 hours as needed. FOR PAIN. (Patient not taking: Reported on 11/04/2019 ) Allergies: ALLERGIES Allergen Reactions Adhesive Tape (Thais* Rash Bacitracin Rash ROS: See HIP PE: 07/09/24 1600 BP: 122/82 Pulse: 64 Resp: 16 Temp: 36.4 C (97.5 F) TempSrc: Left Tympanic Weight: 71.7 kg (158 lb) Height: 162 cm (5' 3.78) Gen: A&O, NAD, non-toxic appearing, Pleasant, cooperative HEENT: NT/AC, PERRLA, EOMs intact b/l, nares clear and patent b/l, pharynx without erythema, exudate or lesions. Uvula midline. EACs without erythema or debris. TMs pearly cantu with intact landmarks b/l. Neck: supple, No cervical LAD, no thyromegaly, no carotid bruits CV: RRR, normal S1 and S2, no murmurs, no gallops, no rubs, Pulses 2+ and symmetric in UE and LE b/l Lungs: normal respiratory effort, CTA b/l, no wheezing or rhonchi or rales Abd: soft, NT, ND, +BS, no hepatosplenomegaly MS: FROM all 4 extremities Neuro: CN II-XII intact b/l, strength 5/5 b/l UE and LE, DTRs 2/4 UE and LE, sensation intact. Skin: warm, dry, intact, No rashes or lesions on exposed skin. No edema, normal pulses ASSESSMENT/PLAN: 1. Well adult exam - ICD9: V70.0, ICD10: Z00.00 (primary diagnosis) - Counseled on healthy diet and regular exercise - COMPREHENSIVE METABOLIC PANEL - THYROID STIMULATING HORMONE - T4 FREE/FREE THYROXINE - T3, FREE - COMPLETE BLOOD COUNT AND DIFFERENTIAL - LIPID PANEL BASIC - HEMOGLOBIN A1C - URINALYSIS, WITH MICROSCOPIC - VITAMIN D 25 HYDROXY - VITAMIN B12 - C-REACTIVE PROTEIN 2. Encounter for screening mammogram for malignant neoplasm of breast - ICD9: V76.12, ICD10: Z12.31 - Set up for mammogram, yearly mammogram recommended - Encouraged monthly BSE - Increase calcium intake with supplements or by diet (goal of 5237-8375 mg/day - Colon cancer screening reviewed and colonoscopy recommended- also can consider Cologuard - Follow up for annual exam in one year. - MISTI SCREENING W PORSHA Kunal Myers DO To ER if develops chest pain, shortness of breath, or severe worsening of symptoms. Discussed risks, benefits, alternatives, and potential side effects of medications. Patient expressed understanding and agreed with the plan. Kunal Myers DO [address] [place] [address] documented in this encounter [facility] 11-27-2022 Miscellaneous Notes Spoke with Brynn gave information provided. She voices understanding. Unfortunately neither Dr. Myers or her team are accepting new patients. Julia Palma APRN.[place] Pt calls to report that mother and father are pt's of Dr. Myers's. Asking if Dr. Myers would take her on as a new pt. Pt reports parents are Jourdan Braga. Let pt know currently practice is closed to new pts but would check. Please review and advise. Carole Reed LPN documented in this encounter [facility] 11-03-2022 Instructions Amada Marin APRN.[place] - 11/03/2022 11:16 AM EST Images from the original note were not included. ASSESSMENT/PLAN: 1. Bacterial sinusitis - ICD9: 473.9, 041.9, ICD10: J32.9, B96.89 - Will begin treatment with Augmentin 875 mg PO BID for 10 days (Rx hand written due to internet outage at [facility]). - Supportive care with plenty of fluids, rest, and analgesia prn. - Follow-up with your PCP in 3-5 days if symptoms have not improved or sooner if symptoms worsen - Discussed red flags and need for immediate medical evaluation if any occur. - Discussed supportive care treatment with fluids, rest and analgesia. - Discussed expected course of illness Amada Marin APRN.CNP Adult Sinusitis Patient Education What is Sinusitis? Sinusitis [zokk-zgf-wrli-tis] is inflammation of the sinuses or swelling of the lining of the sinus cavity or nose. During an infection the sinuses become blocked with fluid causing swelling of the lining of the sinuses. Symptoms: (viral and bacterial infections) Stuffy nose Runny nose Postnasal drip Fever Toothache Headache Tiredness Cough Sore throat Face and head pressure and or pain Common causes: 98% of sinus infections are viral caused by viruses. Risk Factors of Sinusitis Include: Allergies, air pollution, indoor humidity and outdoor temperature changes, andstructural changes in the nose may contribute to sinus pain, pressure and congestion. When to get help? Temperature greater than 100.4 F Symptoms lasting more than 10 days or worsening symptoms greater than 7-10 days. If you do not improve or worsen after a course of antibiotics, you should be re-examined. Diagnosis and Treatment: Your healthcare provider will ask a number of questions about your symptoms and how long they have occurred. If symptoms of sinusitis persist greater than 10 days, it is possible you have a bacterial sinus infection and an antibiotic is prescribed. If it is viral, antibiotics will not help. You may be instructed to take isao-yhi-deyztgr medications for symptoms. including fever reducers acetaminophen or ibuprofen, nasal saline spray, cough and cold preparations and decongestants as prescribed by the physician, nurse practitioner or physician pharmacy assistant. Self-Care and Prevention: Rest Fluids for hydration Good hand washing Humidifier Avoid smoking and exposure to second hand smoke Avoid sick contacts documented in this encounter [facility] 11-03-2022 History of Present illness Narrative Subjective HPI Brynn Cheng is a 47 year old female who presents with 15-20 days of illness. Has had URI symptoms of sore throat, ear pressure, body aches, headache, malaise, sweating, nasal congestion, cough productive of green/yellow sputum. She has been using Vicks, hot tea, gargling, and Excedrin. She did have a few days of improvement but symptoms worsened. Review of Systems Constitutional: Positive for malaise/fatigue. Negative for chills and fever. HENT: Positive for congestion, ear pain, hearing loss, sinus pain and sore throat. Eyes: Negative for blurred vision, pain and redness. Respiratory: Positive for cough and sputum production. Cardiovascular: Negative. Gastrointestinal: Negative for diarrhea, nausea and vomiting. Musculoskeletal: Positive for myalgias. Neurological: Positive for dizziness and headaches. LMP 05/25/2016 BP 124/78 Pulse (!) 58 Temp 37.1 C (98.8 F) (Left Tympanic) Resp 18 Wt 71.4 kg (157 lb 6.4 oz) LMP 05/25/2016 SpO2 100% BMI 27.02 kg/m PAST MEDICAL HISTORY Diagnosis Date Anemia depression and anxiety Gestational diabetes mellitus, class A1 01/03/2017 PMH - PAST MEDICAL HISTORY OF BASAL CELL CARCINOMA PAST SURGICAL HISTORY Procedure Laterality Date EXTRACTION, ERUPTED TOOTH OR EXPOSED ROOT (ELEVATION AND/OR FORCEPS REMOVAL) 07/2014 and was in hospital to get abcess removed from infection after PAST SURGICAL HISTORY OF BASAL CELL REMOVED FROM RIGHT PRESYBETERIAN -2 PAST SURGICAL HISTORY OF DEVIATED SEPTUM TONSILLECTOMY PRIMARY/SECONDARY <AGE 14 Tonsillectomy ALLERGIES Adhesive Tape (Rosins) and Bacitracin MEDICATIONS benzonatate (TESSALON PERLE) 100 mg capsule Take 2 capsules by mouth three times daily as needed. Etonogestrel-Ethinyl Estradiol (NUVARING) 0.12-0.015 mg/24 hr vaginal ring Use 1 Each vaginally as directed. Place ring for 24 days, remove for 4 days and repeat (Patient not taking: Reported on 11/04/2019 ) Blood-Glucose Meter misc 1 Each as directed. (Patient not taking: Reported on 11/04/2019 ) blood sugar diagnostic test strip 1 Strip four times daily. Use as instructed (Patient not taking: Reported on 11/04/2019 ) Lancets lancets 1 Each four times daily. Use as instructed (Patient not taking: Reported on 01/05/2022 ) Urine Glucose-Ketones Test (KETO-DIASTIX) strp 1 Strip four times daily. (Patient not taking: Reported on 01/05/2022 ) Blood-Glucose Meter (GLUCOMETER ELITE CLASSIC) monitoring kit 1 Each as needed. USE DIRECTED, 2 TO 6 TIMES A DAY (Patient not taking: Reported on 11/04/2019 ) blood sugar diagnostic (GLUCOSTIX TEST) test strip Check glucose fasting in morning and 2 hours after every meal. (Patient not taking: Reported on 11/04/2019 ) Lancets (FINGERSTIX LANCETS) lancets Check glucose fasting in morning and 2 hours after every meal. (Patient not taking: Reported on 01/05/2022 ) Alcohol Swabs (ALCOHOL WIPES) padm Apply 1 application to affected area as needed. (Patient not taking: Reported on 11/04/2019 ) Breast Pump Device As directed (Patient not taking: Reported on 11/04/2019 ) Btlfodcx-Tc-Ilm-Fe-FA ( VITAMIN) tab Take 1 tablet by mouth. (Patient not taking: Reported on 01/05/2022 ) Etonogestrel-Ethinyl Estradiol (NUVARING) 0.12-0.015 mg/24 hr vaginal ring Insert vaginally and leave in place for 3 consecutive weeks, then remove for 1 week. Indications: CONTRACEPTION (Patient not taking: Reported on 11/04/2019 ) ibuprofen 200 mg tablet Take 1-2 tablets by mouth every 4 hours as needed. FOR PAIN. (Patient not taking: Reported on 11/04/2019 ) FAMILY HISTORY Problem Relation Age of Onset Lipids Father Hypertension Father Diabetes Father Lipids Maternal Grandmother Diabetes Maternal Grandfather Heart Paternal Grandfather Hypertension Paternal Grandfather Lipids Maternal Aunt Social History Tobacco Use Smoking status: Never Smokeless tobacco: Never Substance Use Topics Alcohol use: No Drug use: No Objective Physical Exam Vitals and nursing note reviewed. Constitutional: Appearance: Normal appearance. HENT: Right Ear: Tympanic membrane, ear canal and external ear normal. Left Ear: Tympanic membrane, ear canal and external ear normal. Nose: Congestion and rhinorrhea present. Mouth/Throat: Mouth: Mucous membranes are moist. Pharynx: Uvula midline. No oropharyngeal exudate or posterior oropharyngeal erythema. Cardiovascular: Rate and Rhythm: Normal rate and regular rhythm. Heart sounds: Normal heart sounds. Pulmonary: Effort: Pulmonary effort is normal. No respiratory distress. Breath sounds: Normal breath sounds. No wheezing or rales. Musculoskeletal: Cervical back: Neck supple. Lymphadenopathy: Cervical: No cervical adenopathy. Skin: General: Skin is warm and dry. Findings: No erythema or rash. Neurological: Mental Status: She is alert. ASSESSMENT/PLAN: 1. Bacterial sinusitis - ICD9: 473.9, 041.9, ICD10: J32.9, B96.89 - Will begin treatment with Augmentin 875 mg PO BID for 10 days (Rx hand written due to internet outage at [facility]). - Supportive care with plenty of fluids, rest, and analgesia prn. - Follow-up with your PCP in 3-5 days if symptoms have not improved or sooner if symptoms worsen - Discussed red flags and need for immediate medical evaluation if any occur. - Discussed supportive care treatment with fluids, rest and analgesia. - Discussed expected course of illness Amada Marin APRN.[employer] documented in this encounter [facility] 01-05-2022 History of Present illness Narrative Subjective HPI HPI Brynn Cheng is a 46 year old female who presents today for CC of congestion, st, ear pain. This started 1 week ago, worsening. Has tried minimal otc medication for relief. Symptoms are worsened by nothing. Risk factors sick exposures at school/work. Denies cp/sob, n/v/d. Denies possibility of being . nonsmoker. .Patient presents with: Chest Congestion: sore throat, cough x 1 week PAST MEDICAL HISTORY Diagnosis Date Anemia depression and anxiety Gestational diabetes mellitus, class A1 01/03/2017 PMH - PAST MEDICAL HISTORY OF BASAL CELL CARCINOMA PAST SURGICAL HISTORY Procedure Laterality Date EXTRACTION, ERUPTED TOOTH OR EXPOSED ROOT (ELEVATION AND/OR FORCEPS REMOVAL) 07/2014 and was in hospital to get abcess removed from infection after PAST SURGICAL HISTORY OF BASAL CELL REMOVED FROM RIGHT PRESYBETERIAN -2 PAST SURGICAL HISTORY OF DEVIATED SEPTUM TONSILLECTOMY PRIMARY/SECONDARY <AGE 14 Tonsillectomy ALLERGIES Adhesive Tape (Rosins) and Bacitracin MEDICATIONS doxycycline monohydrate 100 mg tablet Take 1 tablet by mouth twice daily for 10 days. May transfer to [facility] if less expensive. predniSONE (DELTASONE) 20 mg tablet Take 2 tablets by mouth once daily for 5 days. benzonatate (TESSALON PERLE) 100 mg capsule Take 2 capsules by mouth three times daily as needed. Etonogestrel-Ethinyl Estradiol (NUVARING) 0.12-0.015 mg/24 hr vaginal ring Use 1 Each vaginally as directed. Place ring for 24 days, remove for 4 days and repeat Blood-Glucose Meter misc 1 Each as directed. blood sugar diagnostic test strip 1 Strip four times daily. Use as instructed Lancets lancets 1 Each four times daily. Use as instructed Urine Glucose-Ketones Test (KETO-DIASTIX) strp 1 Strip four times daily. Blood-Glucose Meter (GLUCOMETER ELITE CLASSIC) monitoring kit 1 Each as needed. USE DIRECTED, 2 TO 6 TIMES A DAY blood sugar diagnostic (GLUCOSTIX TEST) test strip Check glucose fasting in morning and 2 hours after every meal. Lancets (FINGERSTIX LANCETS) lancets Check glucose fasting in morning and 2 hours after every meal. Alcohol Swabs (ALCOHOL WIPES) padm Apply 1 application to affected area as needed. Breast Pump Device As directed Ixwdyday-Zv-Znb-Fe-FA ( VITAMIN) tab Take 1 tablet by mouth. Etonogestrel-Ethinyl Estradiol (NUVARING) 0.12-0.015 mg/24 hr vaginal ring Insert vaginally and leave in place for 3 consecutive weeks, then remove for 1 week. Indications: CONTRACEPTION ibuprofen 200 mg tablet Take 1-2 tablets by mouth every 4 hours as needed. FOR PAIN. FAMILY HISTORY Problem Relation Age of Onset Lipids Father Hypertension Father Diabetes Father Lipids Maternal Grandmother Diabetes Maternal Grandfather Heart Paternal Grandfather Hypertension Paternal Grandfather Lipids Maternal Aunt Social History Tobacco Use Smoking status: Never Smoker Smokeless tobacco: Never Used Substance Use Topics Alcohol use: No Drug use: No ROS Objective Blood pressure 136/86, pulse 70, temperature 36.6 C (97.8 F), resp. rate 21, weight 75.5 kg (166 lb 6.4 oz), last menstrual period 05/25/2016, SpO2 99 %, currently . Physical Exam Constitutional: General: She is not in acute distress. Appearance: She is not toxic-appearing or diaphoretic. HENT: Head: Normocephalic and atraumatic. Comments: Voice is hoarse Right Ear: Hearing, tympanic membrane, ear canal and external ear normal. Left Ear: Hearing, tympanic membrane, ear canal and external ear normal. Nose: Congestion present. Mouth/Throat: Pharynx: Uvula midline. No pharyngeal swelling, oropharyngeal exudate, posterior oropharyngeal erythema or uvula swelling. Eyes: General: Lids are normal. No scleral icterus. Right eye: No discharge. Left eye: No discharge. Conjunctiva/sclera: Conjunctivae normal. Pupils: Pupils are equal, round, and reactive to light. Neck: Trachea: Trachea normal. Cardiovascular: Rate and Rhythm: Normal rate and regular rhythm. Heart sounds: Normal heart sounds. Pulmonary: Effort: Pulmonary effort is normal. Breath sounds: Normal breath sounds. Musculoskeletal: Cervical back: Normal range of motion and neck supple. Lymphadenopathy: Cervical: No cervical adenopathy. Right cervical: No superficial cervical adenopathy. Left cervical: No superficial cervical adenopathy. Skin: Findings: No rash. Neurological: Mental Status: She is alert and oriented to person, place, and time. ASSESSMENT/PLAN: 1. Sinobronchitis - ICD9: 473.9, 490, ICD10: J32.9, J40 Try steroids first, after 4-5 days and no improvement or worsening fill and take atb - Supportive care with plenty of fluids, rest, and analgesia prn. - Follow up in 3-5 days if symptoms persist or worsen. -If you experience chest pain/shortness of breath go to ER - DOXYCYCLINE MONOHYDRATE 100 MG TABLET - PREDNISONE 20 MG TABLET - BENZONATATE 100 MG CAPSULE Agrees to plan Abdiel Lora APRN.[employer] documented in this encounter [facility] 01-03-2017 History of Past i llness Narrative Problem Noted Date Resolved Date Gestational diabetes mellitus, class A1 01/04/20 17 04/10/2017 Abnormal O'Griffith glucose challenge test, ante 12/15/2016 01/15/2017 Overview: Gtt ordered today 12/15/16 JV- ABNORMAL Spotting in 07/20/2016 01/15/2017 Overview: 07/20/2016Patient had one day of brown discharge when she wiped yesterday after intercourse. She denies any pain. Miscarriage precautions given. Pt to call/come in if she develops any further bleeding, the development of pain or PRN problems. Patient to keep NOB appointment tomorrow.TKRN Advanced maternal age, 1st 07/20/2016 04/10/2017 Overview: 07/21/2016Advanced maternal age discussed. [facility] handouts on Genetic Amniocentesis, CVS, nuchal and NIPT given and discussed. Level II ultrasound and 's services discussed. TKRN documented as of this encounter (statuses as of 01/05/2022) [facility] History of Past illness Narrative* Problem Noted Date Resolved Date Gestational diabetes mellitus, class A1 01/04/20 17 04/10/2017 Abnormal O'Griffith glucose challenge test, ante 12/15/2016 01/15/2017 Overview: Gtt ordered today 12/15/16 JV- ABNORMAL Spotting in 07/20/2016 01/15/2017 Overview: 07/20/2016Patient had one day of brown discharge when she wiped yesterday after intercourse. She denies any pain. Miscarriage precautions given. Pt to call/come in if she develops any further bleeding, the development of pain or PRN problems. Patient to keep NOB appointment tomorrow.TKRN Advanced maternal age, 1st 07/20/2016 04/10/2017 Overview: 07/21/2016Advanced maternal age discussed. [facility] handouts on Genetic Amniocentesis, CVS, nuchal and NIPT given and discussed. Level II ultrasound and 's services discussed. TKRN documented as of this encounter (statuses as of 11/03/2022) [facility] History of Past illness Narrative* Problem Noted Date Resolved Date Gestational diabetes mellitus, class A1 01/04/20 17 04/10/2017 Abnormal O'Griffith glucose challenge test, ante 12/15/2016 01/15/2017 Overview: Gtt ordered today 12/15/16 JV- ABNORMAL Spotting in 07/20/2016 01/15/2017 Overview: 07/20/2016Patient had one day of brown discharge when she wiped yesterday after intercourse. She denies any pain. Miscarriage precautions given. Pt to call/come in if she develops any further bleeding, the development of pain or PRN problems. Patient to keep NOB appointment tomorrow.TKRN Advanced maternal age, 1st 07/20/2016 04/10/2017 Overview: 07/21/2016Advanced maternal age discussed. [facility] handouts on Genetic Amniocentesis, CVS, nuchal and NIPT given and discussed. Level II ultrasound and 's services discussed. TKRN documented as of this encounter (statuses as of 11/28/2022) [facility] note* Diagnosis Sinobronchitis- Primary Unspecified sinusitis (chronic) [facility]* Diagnosis Bacterial sinusitis- Primary Unspecified sinusitis (chronic) documented in this encounter [facility] note* Diagnosis Well adult exam- Primary Routine general medical examination at a health care facility Encounter for screening mammogram for malignant neoplasm of breast Other screening mammogram [facility]* Diagnosis Encounter for screening mammogram for malignant neoplasm of breast Other screening mammogram [facility]* Diagnosis Sore throat- Primary Acute pharyngitis [facility]* Diagnosis Moderate episode of recurrent major depressive disorder (HCC)- Primary documented in this encounter [facility] note* Diagnosis Adjustment disorder with mixed anxiety and depressed mood documented in this encounter [facility] for referral (narrative)* Diagnostic Procedure Only (Routine) - New Request Specialty Diagnoses / Procedures Referred By Criss cole Referred To Contact [facility] Diagnoses Encounter for screening mammogram for malignant neoplasm of breast Procedures MISTI SCREENING W PORSHA SCREENING DIGITAL BREAST TOMOSYNTHESIS BI SCREENING MAMMOGRAPHY BI 2-VIEW BREAST INC Kunal Gomes DO [address] [place] [address] [facility] [address] [place] [id number] Referral ID Status Reason Start Date Expiration Date Visits Requested Visits Authorized [id number] New Request Auto-Generat ed Referral 07/09/2024 08/08/2025 1 1 [facility] for visit Narrative* Diagnostic Procedure Only (Routine) - Closed Specialty Diagnoses / Procedures Referred By Criss cole Referred To Contact [facility] Diagnoses Encounter for screening mammogram for malignant neoplasm of breast Procedures MISTI SCREENING W PORSHA SCREENING DIGITAL BREAST TOMOSYNTHESIS BI SCREENING MAMMOGRAPHY BI 2-VIEW BREAST INC Kunal Gomes Grisel, DO [address] [place] [address] [facility] [address] [place] [address] Referral ID Status Reason Start Date Expiration Date V isits Requested Visits Authorized [id number] Closed Auto-Generate d Referral 07/09/2024 08/08/2025 1 1 [facility] Summary Purpose Family History No Family History Records FoundNo Family History Records FoundNo Family History Records Found Advance Directives No Advanced Directives Records FoundNo Advanced Directives Records FoundNo Advanced Directives Records Found Additional Source Comments INFORMATION SOURCE (unrecogn ized section and content) DATE CREATED AUTHOR 03/23/2020 [facility] DATE CREATED AUTHOR AUTHOR'S ORGANIZ ATION 11/15/2021 [facility] DATE CREATED AUTHOR AUTHOR'S ORGANIZ ATION 04/17/2025 [facility] Source Comments (unrecognize d section and content) In the event this informatio n is protected by the Federal Confidentiality of Alcohol and Drug Abuse Patient Records regulations: The Federal rules restrict any use of the information to criminally investigate or prosecute any alcohol or drug abuse patient.[facility] event this information is protected by the Federal Confidentiality of Alcohol and Drug Abuse Patient Records regulations: The Federal rules restrict any use of the information to criminally investigate or prosecute any alcohol or drug abuse patient.[facility] the event this information is protected by the Federal Confidentiality of Alcohol and Drug Abuse Patient Records regulations: The Federal rules restrict any use of the information to criminally investigate or prosecute any alcohol or drug abuse patient.[facility] the event this information is protected by the Federal Confidentiality of Alcohol and Drug Abuse Patient Records regulations: The Federal rules restrict any use of the information to criminally investigate or prosecute any alcohol or drug abuse patient.[facility] the event this information is protected by the Federal Confidentiality of Alcohol and Drug Abuse Patient Records regulations: The Federal rules restrict any use of the information to criminally investigate or prosecute any alcohol or drug abuse patient.[facility] the event this information is protected by the Federal Confidentiality of Alcohol and Drug Abuse Patient Records regulations: The Federal rules restrict any use of the information to criminally investigate or prosecute any alcohol or drug abuse patient.[facility] the event this information is protected by the Federal Confidentiality of Alcohol and Drug Abuse Patient Records regulations: The Federal rules restrict any use of the information to criminally investigate or prosecute any alcohol or drug abuse patient.[facility] the event this information is protected by the Federal Confidentiality of Alcohol and Drug Abuse Patient Records regulations: The Federal rules restrict any use of the information to criminally investigate or prosecute any alcohol or drug abuse patient.[facility] the event this information is protected by the Federal Confidentiality of Alcohol and Drug Abuse Patient Records regulations: The Federal rules restrict any use of the information to criminally investigate or prosecute any alcohol or drug abuse patient.[facility] the event this information is protected by the Federal Confidentiality of Alcohol and Drug Abuse Patient Records regulations: The Federal rules restrict any use of the information to criminally investigate or prosecute any alcohol or drug abuse patient.[facility] the event this information is protected by the Federal Confidentiality of Alcohol and Drug Abuse Patient Records regulations: The Federal rules restrict any use of the information to criminally investigate or prosecute any alcohol or drug abuse patient.[facility] the event this information is protected by the Federal Confidentiality of Alcohol and Drug Abuse Patient Records regulations: The Federal rules restrict any use of the information to criminally investigate or prosecute any alcohol or drug abuse patient.[facility] the event this information is protected by the Federal Confidentiality of Alcohol and Drug Abuse Patient Records regulations: The Federal rules restrict any use of the information to criminally investigate or prosecute any alcohol or drug abuse patient.[facility] Reason for Visit (unrecogniz ed section and content) Reason Comments Chest Congestion sore throat, cough x 1 week Reason Comments Patient Question Reason Comments Yearly Exam Reason Comments Results Physical form Reason Comments Headache body aches Fever Sore Throat Cough Reason Comments Depression Reason Comments Medication Problem Reason Comments Recheck 1 month follow up- s tarted on Cymbalta 30mg daily, increased to 60mg Care Teams (unrecognized sec tion and content) Brancher Relationship Specialty Start Date End Date Kunal Myers DO [address] [place] [address] PCP - General Family Medicine 07/09/24 Brancher Relationship Specialty Start Date End Date Kunal Myers DO [address] [place] [address] PCP - General Family Medicine 07/09/24 Brancher Relationship Specialty Start Date End Date Kunal Myers DO [address] [place] [address] PCP - General Family Medicine 07/09/24 Brancher Relationship Specialty Start Date End Date Kunal Myers DO [address] [place] [address] PCP - General Family Medicine 07/09/24 Kendy Chris, FAMILY READINESS SUPPORT ASSISTANT.QUALITY CONTROL TE[employer] [address] [place] [address] Property Claim Rep Family Medicine 09/07/24 Julia Palma, FAMILY READINESS SUPPORT ASSISTANT.QUALITY CONTROL [employer] [address] [facility] [address] Property Claim Rep Family Medicine 09/07/24 Brancher Relationship Specialty Start Date End Date Kunal Myers DO [address] [facility] [place] [address] PCP - General Family Medicine 07/09/24 Kendy Chris, FAMILY READINESS SUPPORT ASSISTANT.QUALITY CONTROL TE[employer] [address] [facility] [place] [address] Property Claim Rep Family Medicine 09/07/24 Julia Palma, FAMILY READINESS SUPPORT ASSISTANT.QUALITY CONTROL [employer] [address] [facility] [place] [address] Property Claim Rep Family [facility] 09/07/24 Brancher Relationship Specialty Start Date End Date Kunal Myers DO [address] [facility] [place] [address] PCP - General Family Medicine 07/09/24 Kendy Chris, FAMILY READINESS SUPPORT ASSISTANT.QUALITY CONTROL [employer] [address] [facility] [place] [address] Property Claim Rep [facility] 09/07/24 Julia Palma, FAMILY READINESS SUPPORT ASSISTANT.QUALITY CONTROL [employer] [address] [facility] [place] [address] [facility] Brancher Relationship Specialty Start Date End Date Kunal Myers DO [address] [facility] [place] [address] PCP - General Family Medicine 07/09/24 Julia Palma, FAMILY READINESS SUPPORT ASSISTANT.QUALITY CONTROL [employer] [address] [facility] [place] [address] [facility]/24 Brancher Relationship Specialty Start Date End Date Kunal Myers DO [address] [facility] [place] [address] PCP - General Family Medicine 07/09/24 Julia Palma, FAMILY READINESS SUPPORT ASSISTANT.QUALITY CONTROL [employer] [address] [facility] [place] [address] Property Claim Rep Family Medicine 09/07/24 Brancher Relationship Specialty Start Date End Date Kunal Myers DO [address] [place] [address] PCP - General Family Medicine 07/09/24 Julia Palma APRN.QUALITY CONTROL [employer] [address] [place], [place] [address] [facility] 09/07/24 Sue Parham APRN.QUALITY CONTROL [employer] [address] [place], [place] [address] [facility] 03/16/25 Brancher Relationship Specialty Start Date End Date Kunal Myers DO [address] [place] [address] PCP - General Family Medicine 07/09/24 Julia Palma, RENETTA.QUALITY CONTROL [employer] [address] [place], [place] [address] [facility] 09/07/24 Sue Parham APRN.QUALITY CONTROL [employer] [address] [place], [place] [id number] [facility] 03/16/25 FOR RECORDS PERTAINING TO PATIENTS WHO ARE OR HAVE BEEN ENROLLED IN A CHEMICAL DEPENDENCY/SUBSTANCEABUSE PROGRAM, SOME INFORMATION MAY BE OMITTED. This clinical summary was aggregated from multiple sources. Caution should be exercised in using it in the provision of clinical care. This summary normalizes information from multiple sources, and as a consequence, information in this document may materially change the coding, format and clinical context of patient data. In addition, data may be omitted in some cases. CLINICAL DECISIONS SHOULD BE BASED ON THE PRIMARY CLINICAL RECORDS. [employer] [facility] provides no warranty or guarantee of the accuracy or completeness of information in this document.
--- NOTE | 2025-06-07 20:30 | RAD_ITS ---
PROCEDURE: KNEE 4 OR MORE VIEWS 06/07/2025 REASON FOR EXAM: PAIN TECHNIQUE: Procedure Code: RADKN Modality: DX Procedure: KNEE 4 OR MORE VIEWS Laterality: Right COMPARISON: None FINDINGS: Osseous: There is mild medial femorotibial joint space loss. Femorotibial alignment is anatomic. Proximal tibiofibular congruency is maintained. Patellar height is within normal range. Patellofemoral joint spacing and alignment is anatomic. No radiographic evidence of significant knee joint effusion. Soft tissue: There is prepatellar soft tissue swelling measuring 14 cm. This may represent soft tissue injury, inflammation/infection or bursitis. There may be mild soft tissue swelling medial to the knee. Soft tissue injury or abnormality is not well evaluated by this technique Clinical correlation is advised. RAD/Knee 4 or More Views IMPRESSION: Soft tissue swelling. - Findings discussed above in detail. Reading Location: [id number]
[2025-06-07 22:32] VITALS: PULSE 92; RESP 18; TEMP 36.9; O2SAT 99
== END 2025-06-07 22:42 | disposition home or self-care (01) ==
PROVIDERS: Emergency Provider Emergency Medicine; PCP Student in an Organized Health Care Education/Training Program; Visit Provider Emergency Medicine
DX: M25.461 Effusion, right knee (principal); S80.211A Abrasion, right knee, initial encounter; W19.XXXA Unspecified fall, initial encounter
CPT/HCPCS: 73564; 99285